=== PATIENT | male | born 1955 | race Caucasian/White ===

== ENCOUNTER → 2021-08-28 | Outpatient (CLI) | payer MEDICARE ==
--- NOTE | 2021-09-04 09:18 | MR ---
EXAMINATION TYPE: MR Prostate wo/w con DATE OF EXAM: 08/28/2021 COMPARISON: CT abdomen and pelvis June 02, 2016 INDICATION: Elevated PSA. PSA: 6.74 ng/ml on May 21, 2021 Recent Biopsy and Date: None Pathology Report (If Applicable): n/a TECHNIQUE: Examination was performed using a 3T MRI without an endorectal coil. Multiparametric imaging was perf ormed with T2 mutliplanar sequences, axial diffusion weighted imaging and dynamic contrast enhanced i maging, utilizing 7.5 mL intravenous Gadavist gadolinium contrast. FINDINGS: There is no clinically significant cancer identified. PROSTATE VOLUME: 5.5 cm SI x 4.3 cm AP x 6.3 cm LR Vol= 78.01 cc Predicted PSA equals 9.36 PSA DENSITY: 0.09 ng/ml/cc Prostate gland is enlarged in size. Peripheral zone shows some linear areas of diminished signal on A DC mapping without increased signal on diffusion-weighted imaging. Transitional zone is overall heter ogeneous without indistinct or distinct T2 hypointense area. Seminal vesicles symmetric and within no rmal limits. No pelvic adenopathy is seen. Urinary bladder shows mild wall thickening and trabeculati on superiorly. Occasional diverticula in the visualized portion of the sigmoid colon is seen. No free fluid in the p leah. Visualized osseous structures are intact. IMPRESSION: Enlarged prostate consistent with BPH. A focus of clinically significant cancer is not identified. Highest Assessment Category: 2 MRI Stage: T0 N0 M0 based on review of pelvic images. False negative rates for MRI range from 5-20% depending on risk profile. Assessment Categories: 1 ? Very low (clinically significant cancer is highly unlikely to be present) 2 ? Low (clinically significant cancer is unlikely to be present) 3 ? Intermediate (the presence of clinically significant cancer is equivocal) 4 ? High (clinically significant cancer is likely to be present) 5 ? Very high (clinically significant cancer is highly likely to be present)
== END | disposition home or self-care (01) ==
LOC: RADMRIMAIN 17:10
PROVIDERS: ATTEND Family Medicine
DX: N40.0 Benign prostatic hyperplasia without lower urinary tract symptoms (principal); R97.20 Elevated prostate specific antigen [PSA]
CPT/HCPCS: 72197; A9585

== ENCOUNTER 2021-09-10 13:58 | Observation (INO) | payer MEDICARE ==
[2021-09-10 16:29] LABS: Basophils # (A) 0.1 k/uL (0-0.2); Basophils % (A) 1 %; Eosinophils # (A) 0.1 k/uL (0-0.7); Eosinophils % (A) 1 %; HGB 13.6 gm/dL (13.0-17.5); Lymphocytes % (A) 13 %; MCH 31.3 pg (25.0-35.0); MCHC 33.3 g/dL (31.0-37.0); Mean Platelet Volume 8.7; Monocytes # (A) 0.3 k/uL (0-1.0); Monocytes % (A) 4 %; Neutrophils # (A) 6.5 k/uL (1.3-7.7); Neutrophils % (A) 81 %; Platelet Count 251 k/uL (150-450); RBC 4.35 m/uL (4.30-5.90); RDW 12.6 % (11.5-15.5)
[2021-09-10 16:38] LABS: Albumin 3.9 g/dL (3.5-5.0); Calcium 8.7 mg/dL (8.4-10.2); Potassium 4.7 mmol/L (3.5-5.1); Total Bilirubin 0.3 mg/dL (0.2-1.3); Total Protein 6.9 g/dL (6.3-8.2)
[2021-09-10 17:25] LABS: Appearance,Urine Clear (Clear); Bilirubin,Urine Negative (Negative); Blood,Urine Trace (Negative); Color,Urine Yellow; Glucose,Urine (UA) Negative (Negative); Hyaline Casts,Urine 11 /lpf (0-2); Ketones,Urine 2+ (Negative); Leukocyte Esterase,Urine Negative (Negative); Mucus,Urine Many /hpf; Nitrite,Urine Negative (Negative); Protein,Urine 1+ (Negative); RBC,Urine 2 /hpf (0-5); Specific Gravity,Urine 1.022 (1.001-1.035); Urobilinogen,Urine <2.0 mg/dL (<2.0); WBC,Urine 4 /hpf (0-5)
[2021-09-10] MEDS: SODIUM CHLORIDE 0.9% 1,000 ML IV SCH (17:29)
[2021-09-10] MEDS ORDERED: NALOXONE 0.4 MG/ML 1 ML VIAL IV PRN (17:38)
--- NOTE | 2021-09-10 17:42 | ED ---
General Adult HPI - General Chief complaint: Weakness Stated complaint: High Heart Rate, Dehydration Time Seen by Provider: 09/10/21 16:26 Source: family, RN notes reviewed, old records reviewed Mode of arrival: wheelchair Limitations: no limitations - History of Present Illness Initial comments: 66-year-old male who had presented from the psychiatrist's office for evaluation, concern for the patient's living situation and safety at home. Patient is a difficult historian and unable to give the exact details of his living situation. He denies pain complaint. Denies fever. Denies vomiting. - Related Data Home Medications Medication Instructions Recorded Confirmed Ferrous Sulfate [Iron (65 MG 325 mg PO DAILY 05/30/16 05/30/16 Elemental)] Levothyroxine Sodium [Synthroid] 112 mcg PO DAILY 05/30/16 05/30/16 Omeprazole 40 mg PO DAILY 05/30/16 05/30/16 Potassium Chloride ER [K-Dur 20] 40 meq PO Q7D 05/30/16 05/31/16 Simvastatin [Zocor] 40 mg PO HS 05/30/16 05/30/16 Previous Rx's Medication Instructions Recorded Aspirin EC [Ecotrin Low Dose] 81 mg PO DAILY #30 tablet.dr 06/10/16 Escitalopram [Lexapro] 20 mg PO DAILY tab 06/10/16 Levofloxacin [Levaquin] 500 mg PO DAILY #7 tab 06/10/16 Metoprolol Tartrate [Lopressor] 25 mg PO BID tab 06/10/16 Polymyxin B-Trimeth Sulf Ophth 2 drops BOTH EYES Q4HR 6 Days ml 06/10/16 [Polytrim Opthalmic] Rivaroxaban [Xarelto] 15 mg PO BID-W/MEALS tab 06/10/16 amLODIPine [Norvasc] 2.5 mg PO BID tab 06/10/16 levETIRAcetam [Keppra] 750 mg PO Q12HR tab 06/10/16 lisinopriL [Zestril] 20 mg PO DAILY tab 06/10/16 Allergies Allergy/AdvReac Type Severity Reaction Status Date / Time Penicillins Allergy Severe Anaphylaxis Verified 09/10/21 14:18 Review of Systems ROS Statement: Those systems with pertinent positive or pertinent negative responses have been documented in the HPI. ROS Other: All systems not noted in ROS Statement are negative. Past Medical History Past Medical History: CVA/TIA, Hyperlipidemia, Thyroid Disorder Additional Past Medical History / Comment(s): past medication data indicates that the pt may have hyperlipidemia and hypo thyroid. History of Any Multi-Drug Resistant Organisms: None Reported Additional Past Surgical History / Comment(s): brain tumor Past Psychological History: No Psychological Hx Reported Past Alcohol Use History: None Reported Past Drug Use History: None Reported - Past Family History Father Family Medical History: Unable to Obtain Mother Family Medical History: Unable to Obtain General Exam Limitations: no limitations General appearance: alert, in no apparent distress Head exam: Present: atraumatic, normocephalic Eye exam: Present: normal appearance, PERRL ENT exam: Present: mucous membranes dry Neck exam: Present: normal inspection. Absent: tenderness, meningismus Respiratory exam: Present: normal lung sounds bilaterally. Absent: respiratory distress, wheezes Cardiovascular Exam: Present: regular rate, normal rhythm GI/Abdominal exam: Present: soft. Absent: distended, tenderness Extremities exam: Present: normal inspection, normal capillary refill Neurological exam: Present: alert. Absent: motor sensory deficit Skin exam: Present: warm, dry, intact. Absent: cyanosis, diaphoretic Course Vital Signs 09/10/21 09/10/21 14:13 17:02 Temperature 98.1 F Pulse Rate 98 83 Respiratory 18 18 Rate Blood Pressure 117/80 113/85 O2 Sat by Pulse 99 94 L Oximetry EKG Findings - EKG Comments: EKG Findings:: EKG: Sinus rhythm with occasional PVC, rate of 87, IN interval 172, QRS duration 90, QTC 4:[address] segment elevation. Medical Decision Making - Medical Decision Making 66-year-old male sent in by the psychiatrist. The psychiatrist had requested that the patient be admitted over concerns of his living situation and his ability to reside in his own, ability to complete the tasks of daily living. I did discuss case with Dr. Wilhelm who will admit the patient with both psychiatry and social work on consult. Laboratory studies are obtained in the emergency department and are unremarkable. - Lab Data Result diagrams: 09/10/21 16:12 09/10/21 16:12 Lab Results 09/10/21 09/10/21 09/10/21 Range/Units 16:12 16:12 17:06 WBC 8.0 (3.8-10.6) k/uL RBC 4.35 (4.30-5.90) m/uL Hgb 13.6 (13.0-17.5) gm/dL Hct 41.0 (39.0-53.0) % MCV 94.0 (80.0-100.0) fL MCH 31.3 (25.0-35.0) pg MCHC 33.3 (31.0-37.0) g/dL RDW 12.6 (11.5-15.5) % Plt Count 251 (150-450) k/uL MPV 8.7 Neutrophils % 81 % Lymphocytes % 13 % Monocytes % 4 % Eosinophils % 1 % Basophils % 1 % Neutrophils # 6.5 (1.3-7.7) k/uL Lymphocytes # 1.0 (1.0-4.8) k/uL Monocytes # 0.3 (0-1.0) k/uL Eosinophils # 0.1 (0-0.7) k/uL Basophils # 0.1 (0-0.2) k/uL Sodium 138 (137-145) mmol/L Potassium 4.7 (3.5-5.1) mmol/L Chloride 103 (98-107) mmol/L Carbon Dioxide 28 (22-30) mmol/L Anion Gap 7 mmol/L BUN 15 (9-20) mg/dL Creatinine 1.04 (0.66-1.25) mg/dL Est GFR (CKD-EPI)AfAm 88 (>60 ml/min/1.73 sqM) Est GFR (CKD-EPI)NonAf 76 (>60 ml/min/1.73 sqM) Glucose 86 (74-99) mg/dL Calcium 8.7 (8.4-10.2) mg/dL Magnesium 2.0 (1.6-2.3) mg/dL Total Bilirubin 0.3 (0.2-1.3) mg/dL AST 16 L (17-59) U/L ALT 14 (4-49) U/L Alkaline Phosphatase 110 (38-126) U/L Total Protein 6.9 (6.3-8.2) g/dL Albumin 3.9 (3.5-5.0) g/dL Urine Color Yellow Urine Appearance Clear (Clear) Urine pH 6.0 (5.0-8.0) Ur Specific [place] 1.022 (1.001-1.035) Urine Protein 1+ H (Negative) Urine Glucose (UA) Negative (Negative) Urine Ketones 2+ H (Negative) Urine Blood Trace H (Negative) Urine Nitrite Negative (Negative) Urine Bilirubin Negative (Negative) Urine Urobilinogen <2.0 (<2.0) mg/dL Ur Leukocyte Esterase Negative (Negative) Urine RBC 2 (0-5) /hpf Urine WBC 4 (0-5) /hpf Hyaline Casts 11 H (0-2) /lpf Urine Mucus Many H (None) /hpf Disposition Clinical Impression: Requires assistance with activities of daily living (ADL), Dehydration Disposition: ADMITTED IP TO THIS [facility] Condition: Stable Is patient prescribed a controlled substance at d/c from ED?: No Referrals: Ladonna Wilhelm DO [Primary Care Provider] - 1-2 days Time of Disposition: 17:42
[2021-09-11] MEDS: SODIUM CHLORIDE 0.9% 1,000 ML IV SCH ×2 (05:22→21:05)
[2021-09-11] MEDS: LOSARTAN 50 MG TAB PO SCH (09:05)
[2021-09-11] MEDS: LEVOTHYROXINE 88 MCG TAB PO SCH (09:05)
[2021-09-11] MEDS: PANTOPRAZOLE 40 MG TABLET PO SCH (09:06)
[2021-09-11] MEDS: OXcarbazepine 300 MG TAB PO SCH ×2 (09:06→21:04)
--- NOTE | 2021-09-11 13:29 | P.HPIM ---
History of Present Illness H&P Date: 09/11/21 Nikhil Zhou is a 66 yo M with PMH of developmental delay, CVA, brain tumor, T2DM, HTN, hypothyroidism. He was brought in to the ED by family yesterday after being recommended by his psychiatrist to go to the hospital due to physical weakness. Per his guardian, pt typically lives with a brother but has started to neglect self care and having falls at home. Pt today denies complains and states he feels fine. On presentation vitals stable, labs unremarkable, EKG NSR. Review of Systems ROS unobtainable: due to mental status Past Medical History Past Medical History: CVA/TIA, Hyperlipidemia, Thyroid Disorder Additional Past Medical History / Comment(s): past medication data indicates that the pt may have hyperlipidemia and hypo thyroid. History of Any Multi-Drug Resistant Organisms: None Reported Additional Past Surgical History / Comment(s): brain tumor Past Anesthesia/Blood Transfusion Reactions: No Reported Reaction Past Psychological History: No Psychological Hx Reported Additional Psychological History / Comment(s): Single. Does not work outside of the home. No animal exposures. No tobacco or alcohol use Smoking Status: Never smoker Past Alcohol Use History: None Reported Past Drug Use History: None Reported - Past Family History Father Family Medical History: Unable to Obtain Mother Family Medical History: Unable to Obtain Medications and Allergies Home Medications Medication Instructions Recorded Confirmed Type Omeprazole 40 mg PO DAILY 05/30/16 09/10/21 History Simvastatin [Zocor] 40 mg PO HS 05/30/16 09/10/21 History Aspirin EC [Ecotrin Low Dose] 81 mg PO HS 09/10/21 09/10/21 History Latanoprost/Pf [Latanoprost 0.005% 1 drop BOTH EYES HS 09/10/21 09/10/21 History Eye Drop] Levothyroxine Sodium 88 mcg PO DAILY 09/10/21 09/10/21 History Losartan Potassium 100 mg PO DAILY 09/10/21 09/10/21 History Mirtazapine 15 mg PO HS 09/10/21 09/10/21 History OXcarbazepine [Trileptal] 300 mg PO BID 09/10/21 09/10/21 History Terazosin HCl 5 mg PO HS 09/10/21 09/10/21 History metFORMIN HCL 1,000 mg PO HS 09/10/21 09/10/21 History Allergies Allergy/AdvReac Type Severity Reaction Status Date / Time Penicillins Allergy Severe Anaphylaxis Verified 09/10/21 14:18 Physical Exam Vitals: Vital Signs Temp Pulse Pulse Resp BP BP Pulse Ox 09/11/21 07:00 97.9 F 73 17 154/85 95 09/11/21 02:00 98.4 F 61 17 153/85 96 09/10/21 17:02 83 18 113/85 94 L 09/10/21 14:13 98.1 F 98 18 117/80 99 Intake and Output 09/10/21 09/11/21 09/11/21 22:59 06:59 14:59 Output Total 200 Balance -200 Output: Urine 200 Other: # Voids 1 Weight 77.111 kg General: elderly male resting in no acute distress HEENT: normocephalic, atraumatic Neck: supple, no JVD or thyromegaly CV: RRR, no murmur Lungs: normal effort, clear throughout Abd: soft, nontender, non distended Neuro: alert. Oriented to self Results CBC & Chem 7: 09/10/21 16:12 09/10/21 16:12 Labs: Abnormal Lab Results - Last 24 Hours (Table) 09/10/21 09/10/21 Range/Units 16:12 17:06 AST 16 L (17-59) U/L Urine Protein 1+ H (Negative) Urine Ketones 2+ H (Negative) Urine Blood Trace H (Negative) Hyaline Casts 11 H (0-2) /lpf Urine Mucus Many H (None) /hpf Thrombosis Risk Factor Assmnt - Choose All That Apply Any of the Below Risk Factors Present?: Yes Other Risk Factors: Yes Each Risk Factor Represents 2 Points: Age 61-74 years Other congenital or acquired thrombophilia - If yes, enter type in comment: No Thrombosis Risk Factor Assessment Total Risk Factor Score: 2 Thrombosis Risk Factor Assessment Level: Low Risk Assessment and Plan Plan: 1. Weakness, impairment in movement and ADLs. Admit to Obs. PT, OT, social work consult. Expect pt will need placement at ECF 2. HTN. Continue home cozaar 3. Hx CVA. Continue lipitor, ASA 4. Dementia. Continue donepazil 5. Developmental delay. Pt LENO Patrick contacted and aware of plan
--- NOTE | 2021-09-11 17:40 | P.CN ---
Psychiatric Consult - . Consult date: 09/11/21 Consult:: IDENTIFYING DATA: This patient is a 66 year old male with history of developmental delay and multiple medical comorbidities, who was admitted due to concerns over his living situation and dehydration. REASON FOR REFERRAL: Psychiatry was consulted for "Assessment ADLs". HISTORY OF PRESENT ILLNESS: Per chart, the patient presented to the hospital "from the psychiatrist's office for evaluation, concern for the patient's living situation and safety at home. Patient is a difficult historian and unable to give the exact details of his living situation." Initial workup in the ER showed unremarkable CBC and CMP. UA was positive for ketones, protein, hyaline casts indicating poor nutrition and dehydration. On my assessment today, patient was found sitting up in his chair with IV for fluids. He is disheveled with unkempt ibrahim and long nails with visible dirt. He is alert, oriented to person, place, time (oriented to year, states month is August and was corrected that month is September), and situation. He is calm and cooperative on assessment. He states he came to the hospital because his "chiropractor told his ___(?) he had to come here". His speech is mildly slurred and difficult to understand at times. He has limited insight into his situation and states "I guess I was in bad shape", but does not appear to fully appreciate the severity of his condition. When asked about falls, he appears to minimize this but eventually admits he has fallen at home. He reports living with his brother Adam who works during the day so he is mostly alone during the days. He reports eating one meal per day that his brother cooks for him, or his brother treats him to [facility] or [employer] (for his birthday). He reports feeling safe at home and does not endorse any mistreatment. He states he is not much of a big eater, stays up late watching TV (like to watch "[place] in Space" at 2am) and wakes up late (between noon - 3pm). Today, he reports he ate some of his breakfast, some of his lunch, and currently does not feel hungry. He reports medication compliance and reports his brother helps put his medications in a medication organizer. His guardian is his uncle who lives next door. He denies depressed mood but objectively affect appears dontae n. He reports low energy, low motivation and interest, (except likes to do the "word scan" and "try to read the Bible"). At this time patient denies any suicidal or homical ideations, intent or plan. Patient denies any auditory, visual hallucinations and denies any paranoia or delusions. Patients denies drug or alcohol abuse. PAST PSYCHIATRIC HISTORY: Patient has a a history of developmental delay; denies any other mental health diagnoses. Patient reports seeing a psychiatrist but cannot recall the name. Patient admits to taking psychiatric medications but cannot name them. Per chart, he is currently prescribed Remeron 15 mg QHS and Trileptal 300 mg BID. Patient denies any previous psychiatric hospitalizations. Patient denies any history of suicide attempts in the past. PAST MEDICAL HISTORY: Past Medical History: CVA/TIA, Hyperlipidemia, Thyroid Disorder Additional Past Medical History / Comment(s): past medication data indicates t hat the pt may have hyperlipidemia and hypo thyroid. History of Any Multi-Drug Resistant Organisms: None Reported Additional Past Surgical History / Comment(s): brain tumor Past Anesthesia/Blood Transfusion Reactions: No Reported Reaction Past Psychological History: No Psychological Hx Reported Additional Psychological History / Comment(s): Single. Does not work outside of the home. No animal exposures. No tobacco or alcohol use Smoking Status: Never smoker Past Alcohol Use History: None Reported Past Drug Use History: None Reported ALLERGIES: as per EMR. CHEMICAL DEPENDENCY HISTORY: Patient denies alcohol or drug abuse. FAMILY PSYCHIATRIC/SUBSTANCE USE HISTORY: Patient denies/is not sure of any family history. SOCIAL HISTORY: Patient lives with his brother Adam. His guardian is his uncle who lives next door. Parents are . He has one brother (Adam) and one sister (lives in [place]). Never , no children. MENTAL STATUS EXAM: General Appearance: Patient appears to be stated age, disheveled with poor hygiene (ibrahim unkempt, nails are long and dirty). He is wearing hospital gown with fair eye contact. Orientation: He is alert, oriented to person, place, year/day and situation. Behavior: Patient is calmly sitting up in his chair without any agitated behavior. He is cooperative. Speech: Patient's speech is fluent and nonpressured. Mood/Affect: Patient reports their mood is "ok", affect appears down/depressed. Suicidality/Homicidality: Patient denies having any suicidal or homicidal ideation intent or plan. Perceptions: Patient denies any visual hallucinations and denies any auditory hallucinations. Though content/process: There is no evidence of any delusional thought content and thought process is linear and goal-directed. Memory and concentration: Recent memory appears intact. Remote memory is mildly impaired. Grossly intact for the purposes of this session. Judgment and insight: Fair to poor IMPRESSIONS: Unspecified depressive disorder Intellectual disability, severity unspecified PLAN: -At this time patient DOES NOT meet criteria for inpatient psychiatric admission. -Would recommend the following medication changes/additions: - Increase Remeron to 30 mg QHS for depression/appetite. -Labs reviewed. CBC and CMP unremarkable. UA positive for ketones, poor nutrition, dehydration. Ordered TSH as routine to assess thyroid function. -Fall precautions. Continue to assess safety and initiate sitter if safety concerns arise. -Agree with PT/OT assessments and plan to pursue (short term) ECF placement for weakness/falls/poor nutritional intake. If patient should return home in the future, recommend exploring in-home health aid to assist with ADLs, as well as in-home PT/OT. -Encourage appropriate sleep hygiene. -Will continue to follow along. -Please contact with any questions. 09/11/21 16:55
[2021-09-11] MEDS ORDERED: MIRTAZAPINE 15 MG TAB PO SCH (21:00)
[2021-09-11] MEDS: ASPIRIN 81 MG PO SCH (21:02)
[2021-09-11] MEDS: ATORVASTATIN 20 MG TAB PO SCH (21:02)
[2021-09-11] MEDS: MIRTAZAPINE 15 MG TAB PO SCH (21:03)
[2021-09-11] MEDS: metFORMIN 500 MG TAB PO SCH (21:03)
[2021-09-11] MEDS: DOXAZOSIN 4 MG TAB PO SCH (21:03)
[2021-09-11] MEDS: LATANOPROST 0.005% OPHTH DROPS 2.5 ML BTL BOTH EYES SCH (21:05)
[2021-09-12] MEDS: LEVOTHYROXINE 88 MCG TAB PO SCH (05:35)
[2021-09-12] MEDS: INSULIN ASPART (NovoLOG) 100 UNIT/ML VIAL SQ SCH ×4 (08:38→21:20)
[2021-09-12] MEDS: PANTOPRAZOLE 40 MG TABLET PO SCH (09:35)
[2021-09-12] MEDS: LOSARTAN 50 MG TAB PO SCH (09:35)
[2021-09-12] MEDS: OXcarbazepine 300 MG TAB PO SCH ×2 (09:35→21:19)
--- NOTE | 2021-09-12 09:42 | P.CON ---
Consult Note - . Assessment/Plan:: This consultation was being performed per the request of Dr. Wilhelm regarding elongated neglected mycotic Adolfo involved nails of both feet This patient is a 66-year-old male with a past medical history of developmental delay, CVA, brain tumor, type 2 diabetes mellitus, hypertension, and hypothyroidism brought to the [facility] by 09/10/2021 her being recommended by his to go to the hospital due to physical weakness. Per his guardian the patient typically lives there but started to collect self-care and having falls at home. Shouldn't denied complaints today to the feels fine. On presentation the vital signs were stable labs were unremarkable well as EKG Review of systems was unobtainable due to mental status Medical history is significant for CVA/TIA or lipidemia, thyroid disorder No past medical history as if her brain tumor Psychological history: No [place] status: None reported Past alcohol use history: None Reported psychological history: None reported Past drug use history: None reported Past family history: Unable to obtain Podiatric physical examination revealed very elongated neglected mycoticaly involved nails of both feet. The patient's skin with regard to pitcher texture within normal limits for a 66-year-old male had palpable pedal pulses rated at +2 over 4 with regard to the dorsalis pedis and the posterior tibial artery at capillary refill is less than 3 seconds to all digits. Bbinski and clonus signs were negative bilaterally Motion of the ankle subtalar midtarsal and metatarsophalangeal joints were free and unrestricted Stated above the patient's nails were quite neglected elongated thick deformed and dystrophic changes consistent with onychomycosis were seen to be present one through 5 bilaterally Assessment and plan 1. Weakness, impairment with movement every day living activities the patient was admitted for observation PT OT and social work consult and social work consult 2. Attention any with home Cozaar 3. History of CVA , continue with Lipitor and aspirin 4. Dementia continue with Donepazil 5. Developmental delay 6. Onychomycosis 1 -5 of both feet. This date I reduce the patient's nails 1 through 5 of both feet burring was performed and a septic was applied. Thank you for considering me in the care of your patients
[2021-09-12 11:30] LABS: Glucose,Whole Blood 86 mg/dL (70-110)
[2021-09-12 16:49] LABS: Glucose,Whole Blood 78 mg/dL (70-110)
--- NOTE | 2021-09-12 17:15 | PN ---
PROGRESS NOTE DATE OF SERVICE: 09/12/2021 This 66-year-old gentleman admitted with weakness and dehydration is being closely monitored. ECF rehab is being planned at this time at this time. Patient continues to be confused. PHYSICAL EXAMINATION: Pulse is 73, blood pressure 153/80, respiration 16. HEENT: Conjunctivae normal. NECK: No jugular venous distention. CARDIOVASCULAR: S1, S2 muffled. RESPIRATION: Breath sounds diminished at the bases. A few scattered rhonchi. ABDOMEN: Soft. NERVOUS SYSTEM: No focal deficit. LABS: Reviewed. ASSESSMENT: 1. Dehydration and diminished oral intake. 2. Hypertension. 3. History of cerebrovascular accident. 4. Dementia. 5. Developmental delay. RECOMMENDATIONS AND DISCUSSION: I recommend to continue current medications, continue with the monitoring, symptomatic treatment. Otherwise at this time I recommend closely following. Repeat labs. Increased hydration. Guarded prognosis. Further recommendations to follow. See orders for further details. MMODL / IJN: [id number] /
[2021-09-12] MEDS: SODIUM CHLORIDE 0.9% 1,000 ML IV SCH (20:54)
[2021-09-12] MEDS: ASPIRIN 81 MG PO SCH (21:13)
[2021-09-12] MEDS: ACETAMINOPHEN TAB 325 MG TAB PO PRN (21:13)
[2021-09-12] MEDS: metFORMIN 500 MG TAB PO SCH (21:13)
[2021-09-12] MEDS: MIRTAZAPINE 15 MG TAB PO SCH (21:13)
[2021-09-12] MEDS: ATORVASTATIN 20 MG TAB PO SCH (21:13)
[2021-09-12 21:16] LABS: Glucose,Whole Blood 93 mg/dL (70-110)
[2021-09-12] MEDS: DOXAZOSIN 4 MG TAB PO SCH (21:18)
[2021-09-12] MEDS: LATANOPROST 0.005% OPHTH DROPS 2.5 ML BTL BOTH EYES SCH (21:21)
[2021-09-13 02:35] LABS: Glucose,Whole Blood 80 mg/dL (70-110)
[2021-09-13] MEDS: SODIUM CHLORIDE 0.9% 1,000 ML IV SCH ×2 (03:00→20:54)
[2021-09-13] MEDS: LEVOTHYROXINE 88 MCG TAB PO SCH (06:02)
[2021-09-13 06:54] LABS: Glucose,Whole Blood 87 mg/dL (70-110)
[2021-09-13] MEDS: INSULIN ASPART (NovoLOG) 100 UNIT/ML VIAL SQ SCH ×4 (07:36→21:00)
[2021-09-13] MEDS: LOSARTAN 50 MG TAB PO SCH (07:36)
[2021-09-13] MEDS: PANTOPRAZOLE 40 MG TABLET PO SCH (07:36)
[2021-09-13] MEDS: OXcarbazepine 300 MG TAB PO SCH ×2 (07:36→20:54)
[2021-09-13 11:32] LABS: Glucose,Whole Blood 73 mg/dL (70-110)
[2021-09-13 11:59] LABS: Basophils # (A) 0.11 X 10*3/uL (0.00-0.10); Basophils % (A) 1.3 %; Eosinophils # (A) 0.43 X 10*3/uL (0.04-0.35); HCT 39.4 % (39.6-50.0); HGB 12.2 g/dL (13.0-17.0); Immature Grans, Automated 0.5 %; Lymphocytes # (A) 3.18 X 10*3/uL (0.90-5.00); Lymphocytes % (A) 36.8 %; MCH 29.4 pg (27.0-32.0); MCV 94.9 fL (80.0-97.0); Mean Platelet Volume 12.4 fL (9.5-12.2); Monocytes % (A) 5.8 %; NRBC Per 100 WBC 0 /100 WBCS (0.0-0.0); Neutrophils # (A) 4.37 X 10*3/uL (1.80-7.70); Neutrophils % (A) 50.6 %; Platelet Count 265 X 10*3/uL (140-440); RBC 4.15 X 10*6/uL (4.40-5.60); RDW 12.9 % (11.5-14.5); WBC 8.63 X 10*3/uL (4.50-10.00)
[2021-09-13 12:06] LABS: African American GFR (CKD) 104.2 (60.0-200.0); Anion Gap 11.3 mmol/L (10.00-18.00); BUN/Creat Ratio 7.33 Ratio (12.00-20.00); Blood Urea Nitrogen 6.6 mg/dL (9.0-27.0); Calcium 8.3 mg/dL (8.7-10.3); Carbon Dioxide 23.7 mmol/L (20.0-27.5); Non-African American GFR(CKD) 89.9 (60.0-200.0); Potassium 3.9 mmol/L (3.5-5.5)
--- NOTE | 2021-09-13 14:58 | PN ---
PROGRESS NOTE DATE OF SERVICE: 09/13/2021 This 66-year-old gentleman admitted with weakness and dehydration is confused. The patient was rather combative a couple of days ago; calmer today. No chest pain. No palpitations. PHYSICAL EXAMINATION: Pulse 81, blood pressure ntd, respirations 17. HEENT: Conjunctivae normal. NECK: No jugular venous distention. CARDIOVASCULAR: S1, S2 muffled. RESPIRATION: Breath sounds diminished at the bases. ABDOMEN: Soft. NERVOUS SYSTEM: Diffusely weak. LABS: Hemoglobin 12.2. Other labs are reviewed. ASSESSMENT: 1. Acute dehydration, diminished oral intake. 2. Hypertension. 3. History of cerebrovascular accident. 4. Dementia. 5. Developmental delay. RECOMMENDATIONS AND DISCUSSION: I recommend to continue current medications, continue with the monitoring, symptomatic treatment. PT/OT evaluation. Possible ECF rehab on Tuesday. Further recommendations to follow. Dr. Wilhelm will follow on Tuesday. MMBERNAL / IRAISN: [id number] / MTDD
[2021-09-13 16:45] LABS: Glucose,Whole Blood 74 mg/dL (70-110)
[2021-09-13 19:55] LABS: Glucose,Whole Blood 103 mg/dL (70-110)
[2021-09-13] MEDS: DOXAZOSIN 4 MG TAB PO SCH (20:54)
[2021-09-13] MEDS: ATORVASTATIN 20 MG TAB PO SCH (20:54)
[2021-09-13] MEDS: MIRTAZAPINE 15 MG TAB PO SCH (20:55)
[2021-09-13] MEDS: ASPIRIN 81 MG PO SCH (20:55)
[2021-09-13] MEDS: ACETAMINOPHEN TAB 325 MG TAB PO PRN (20:55)
[2021-09-13] MEDS: LATANOPROST 0.005% OPHTH DROPS 2.5 ML BTL BOTH EYES SCH (21:00)
[2021-09-14] MEDS: LEVOTHYROXINE 88 MCG TAB PO SCH (05:47)
[2021-09-14 06:59] LABS: Glucose,Whole Blood 70 mg/dL (70-110)
[2021-09-14] MEDS: INSULIN ASPART (NovoLOG) 100 UNIT/ML VIAL SQ SCH ×4 (07:19→21:48)
[2021-09-14] MEDS: LOSARTAN 50 MG TAB PO SCH (07:39)
[2021-09-14] MEDS: PANTOPRAZOLE 40 MG TABLET PO SCH (07:39)
[2021-09-14] MEDS: OXcarbazepine 300 MG TAB PO SCH ×2 (07:39→21:49)
[2021-09-14 11:27] LABS: Glucose,Whole Blood 129 mg/dL (70-110)
--- NOTE | 2021-09-14 13:10 | P.PN ---
Subjective Progress Note Date: 09/14/21 This is a 66 year old male who was recently admitted with weakness and dehydration and with confusion and is being closely monitored. Patient follows with Dr. Wilhelm in the outpatient setting. Patient has been becoming more weak at home and ECF is being planned. Patient is less confused and more awake. Patient is afebrile and no reports of chest pain or shortness of breath. Recommend close monitoring of blood sugars and use sliding scale as needed. achs accuchecks. Encourage oral intake. All medications have been reviewed Active Medications Acetaminophen (Acetaminophen Tab 325 Mg Tab) 650 mg PO Q6HR PRN PRN Reason: Mild Pain or Fever > 100.5 Last Admin: 09/13/21 20:55 Dose: 650 mg Aspirin (Aspirin 81 Mg) 81 mg PO [facility] Last Admin: 09/13/21 20:55 Dose: 81 mg Atorvastatin Calcium (Atorvastatin 20 Mg Tab) 20 mg PO [facility] Last Admin: 09/13/21 20:54 Dose: 20 mg Doxazosin Mesylate (Doxazosin 4 Mg Tab) 4 mg PO [facility] Last Admin: 09/13/21 20:54 Dose: 4 mg Insulin Aspart (Insulin Aspart (Novolog) 100 Unit/Ml Vial) 0 unit SQ [facility]; Protocol Last Admin: 09/14/21 11:30 Dose: Not Given Latanoprost (Latanoprost 0.005% Ophth Drops 2.5 Ml Btl) 1 drops BOTH EYES [facility] Last Admin: 09/13/21 21:00 Dose: 1 drops Levothyroxine Sodium (Levothyroxine 88 Mcg Tab) 88 mcg PO DAILY@0630 [facility] Last Admin: 09/14/21 05:47 Dose: 88 mcg Losartan Potassium (Losartan 50 Mg Tab) 100 mg PO DAILY [facility] Last Admin: 09/14/21 07:39 Dose: 100 mg Mirtazapine (Mirtazapine 15 Mg Tab) 30 mg PO [facility] Last Admin: 09/13/21 20:55 Dose: 30 mg Naloxone HCl (Naloxone 0.4 Mg/Ml 1 Ml Vial) 0.2 mg IV Q2M PRN PRN Reason: Opioid Reversal Oxcarbazepine (Oxcarbazepine 300 Mg Tab) 300 mg PO BID [facility] Last Admin: 09/14/21 07:39 Dose: 300 mg Pantoprazole Sodium (Pantoprazole 40 Mg Tablet) 40 mg PO [facility] Last Admin: 09/14/21 07:39 Dose: 40 mg PHYSICAL EXAMINATION: GENERAL: The patient is alert and oriented x1-2, Well developed, well nourished. elderly HEENT: Pupils are round and equally reacting to light. EOMI. no scleral icterus. No conjunctival pallor. Normocephalic, atraumatic. No pharyngeal erythema. No thyromegaly. CARDIOVASCULAR: S1 and S2 muffled PULMONARY: diminished breath sounds bilaterally with no wheezing or rhonchi noted. ABDOMEN: soft. non tender on exam. Obese. non-distended, normal bowel sounds. No palpable organomegaly. MUSCULOSKELETAL: No joint swelling or deformity. EXTREMITIES: No cyanosis, clubbing, or pedal edema. NEUROLOGICAL: Gross neurological examination did not reveal any focal deficits. diffuse weakness SKIN: No rashes. Assessment: Acute dehydration, diminished oral intake Hypertension HIstory of CVA Dementia Developmental delay multiple complex medical issues GI prophylaxis DVT prophylaxis Full code Plan: Recommend to continue with current medications and management . Recommend accuchecks and achs. Will discuss with case management about discharge planning to ECF. Encourage oral intake. PT/OT to evaluate for ECF. Due to multiple complex medical issues, prognosis is guarded. Possible discharge in [address] Francesco Wilhelm will follow started tomorrow am. The impression and plan of care has been dictated as a scribe by Kerrie Pina, nurse practitioner as directed. MD Brandi I have performed a history and examination and MDM of this patient, discussed the same with the dictator, and has been documented as a scribe. Based on total visit time, I have performed more than 50% of the visit. Any additional findings or plans will be noted. Objective - Vital Signs Vital signs: Vital Signs Temp 97.9 F 09/14/21 07:00 Pulse 66 09/14/21 07:00 Resp 16 09/14/21 02:00 BP 142/95 09/14/21 07:00 Pulse Ox 96 09/14/21 07:00 FiO2 Intake & Output 09/13/21 09/14/21 09/14/21 18:59 06:59 18:59 Other: # Voids 4 2 3 # Bowel Movements 0 1 - Labs CBC & Chem 7: 09/13/21 06:44 09/13/21 06:44 Labs: Abnormal Lab Results - Last 24 Hours (Table) 09/13/21 09/13/21 Range/Units 06:44 06:44 RBC 4.15 L (4.40-5.60) X 10*6/uL Hgb 12.2 L (13.0-17.0) g/dL Hct 39.4 L (39.6-50.0) % MCHC 31.0 L (32.0-37.0) g/dL MPV 12.4 H (9.5-12.2) fL Eosinophils # 0.43 H (0.04-0.35) X 10*3/uL Basophils # 0.11 H (0.00-0.10) X 10*3/uL BUN 6.6 L (9.0-27.0) mg/dL BUN/Creatinine Ratio 7.33 L (12.00-20.00) Ratio Glucose 65 L (70-110) mg/dL Calcium 8.3 L (8.7-10.3) mg/dL
--- NOTE | 2021-09-14 13:31 | P.PN ---
Progress Note - Text Progress Note Date: 09/14/21 Interval history: Patient was seen in follow-up of psychiatric consult for "assessment ADLs". Patient was found sitting up in his chair eating his lunch. His mood and affect are improved. He is pleasant on assessment and denies any complaints. He reports good mood, satisfied appetite, improved sleep. At this time patient denies any suicidal or homicidal ideations intent or plan. Denies any auditory or visual hallucinations. Patient denies any side effects from the medications and has been compliant with meds. Mental status exam: General Appearance: Patient appears to be stated age, with marginal hygiene. He is wearing hospital gown with improved eye contact. Orientation: He is alert, oriented to person, place, time and situation. Behavior: Patient is calmly sitting up in his chair eating his lunch without any agitated behavior. He is cooperative. Speech: Patient's speech is fluent and nonpressured. Mood/Affect: Patient reports their mood is "pretty good", affect appears euthymic/improved. Suicidality/Homicidality: Patient denies having any suicidal or homicidal ideation intent or plan. Perceptions: Patient denies any visual hallucinations and denies any auditory hallucinations. Though content/process: There is no evidence of any delusional thought content and thought process is linear and goal-directed. Memory and concentration: Recent memory appears intact. Remote memory is mildly impaired. Grossly intact for the purposes of this session. Judgment and insight: Fair IMPRESSIONS: Unspecified depressive disorder Intellectual disability, severity unspecified PLAN: -At this time patient DOES NOT meet criteria for inpatient psychiatric admission. -Would recommend the following medication changes/additions: - Continue [id number] mg QHS for depression/appetite. -Labs reviewed: TSH is in normal limits. -Fall precautions. Continue to assess safety and initiate sitter if safety concerns arise. -Agree with PT/OT assessments and plan to pursue (short term) ECF placement for weakness/falls/poor nutritional intake. If patient should return home in the future, recommend exploring in-home health aid to assist with ADLs, as well as in-home PT/OT. -Encourage appropriate sleep hygiene. -Psychiatry will sign off at this time. -Please contact with any questions.
[2021-09-14 16:59] LABS: Glucose,Whole Blood 89 mg/dL (70-110)
[2021-09-14 20:53] LABS: Glucose,Whole Blood 99 mg/dL (70-110)
[2021-09-14] MEDS: ASPIRIN 81 MG PO SCH (21:48)
[2021-09-14] MEDS: ATORVASTATIN 20 MG TAB PO SCH (21:48)
[2021-09-14] MEDS: MIRTAZAPINE 15 MG TAB PO SCH (21:48)
[2021-09-14] MEDS: LATANOPROST 0.005% OPHTH DROPS 2.5 ML BTL BOTH EYES SCH (21:49)
[2021-09-14] MEDS: DOXAZOSIN 4 MG TAB PO SCH (21:49)
[2021-09-15] MEDS: ACETAMINOPHEN TAB 325 MG TAB PO PRN (01:26)
[2021-09-15 05:02] VITALS: RESP 14
[2021-09-15] MEDS: LEVOTHYROXINE 88 MCG TAB PO SCH (06:11)
[2021-09-15 07:00] LABS: Glucose,Whole Blood 71 mg/dL (70-110)
[2021-09-15] MEDS: INSULIN ASPART (NovoLOG) 100 UNIT/ML VIAL SQ SCH (07:38)
[2021-09-15] MEDS: OXcarbazepine 300 MG TAB PO SCH (07:52)
[2021-09-15] MEDS: PANTOPRAZOLE 40 MG TABLET PO SCH (07:52)
[2021-09-15] MEDS: LOSARTAN 50 MG TAB PO SCH (07:52)
--- NOTE | 2021-09-15 08:17 | P.DS ---
Providers Date of admission: 09/10/21 17:39 Expected date of discharge: 09/15/21 Attending physician: Francesco Wilhelm MD Consults: 09/10/21 17:38 Consult Physician Routine Consulting Provider: Chava Yen Consult Reason/Comments: Assessment ADLs Do you want consulting provider notified?: Yes 09/11/21 09:28 Consult Physician Urgent Consulting Provider: Chandler Funk Consult Reason/Comments: Toenail Clip Do you want consulting provider notified?: Yes Primary care physician: [facility] Course: Nikhil Zhou is a 66 yo M with PMH of developmental delay, CVA, brain tumor, T2DM, HTN, hypothyroidism. He was brought in to the ED by family yesterday after being recommended by his psychiatrist to go to the hospital due to physical weakness. Per his guardian, pt typically lives with a brother but has started to neglect self care and having falls at home. Pt today denies complains and states he feels fine. On presentation vitals stable, labs unremarkable, EKG NSR. Pt admitted to observation, seen by Psych and podiatry for onychomycosis. His nails were trimmed. He was not felt to require inpatient psychiatric care and no medications changed. He continued to demonstrate impairment in ADLs during his admission and was recommended ECF by PT and OT. He is discharged in stable condition and recommended to follow up with his PCP upon discharge. Patient Condition at Discharge: Stable Plan - Discharge Summary New Discharge Prescriptions: Continue Simvastatin [Zocor] 40 mg PO HS Omeprazole 40 mg PO DAILY Mirtazapine 15 mg PO HS Latanoprost/Pf [Latanoprost 0.005% Eye Drop] 1 drop BOTH EYES HS Levothyroxine Sodium 88 mcg PO DAILY OXcarbazepine [Trileptal] 300 mg PO BID metFORMIN HCL 1,000 mg PO HS Losartan Potassium 100 mg PO DAILY Aspirin EC [Ecotrin Low Dose] 81 mg PO HS Terazosin HCl 5 mg PO HS Discharge Medication List Omeprazole 40 mg PO DAILY 05/30/16 [History] Simvastatin [Zocor] 40 mg PO HS 05/30/16 [History] Aspirin EC [Ecotrin Low Dose] 81 mg PO HS 09/10/21 [History] Latanoprost/Pf [Latanoprost 0.005% Eye Drop] 1 drop BOTH EYES HS 09/10/21 [History] Levothyroxine Sodium 88 mcg PO DAILY 09/10/21 [History] Losartan Potassium 100 mg PO DAILY 09/10/21 [History] Mirtazapine 15 mg PO HS 09/10/21 [History] OXcarbazepine [Trileptal] 300 mg PO BID 09/10/21 [History] Terazosin HCl 5 mg PO HS 09/10/21 [History] metFORMIN HCL 1,000 mg PO HS 09/10/21 [History] Follow up Appointment(s)/Referral(s): Ladonna Wilhelm DO [Primary Care Provider] - 1-2 days Discharge Disposition: TRANSFER TO SNF/ECF
[2021-09-15 09:03] VITALS: BP 126/81; PULSE 59; TEMP 97.7
[2021-09-15 11:35] LABS: Glucose,Whole Blood 96 mg/dL (70-110)
== END 2021-09-15 12:10 ==
LOC: EC 13:58 → 6NMEDSUR 17:39 → 4SSUR 21:24
PROVIDERS: ADMIT Family Medicine; ATTEND Family Medicine
DX: E86.0 Dehydration (principal); I10 Essential (primary) hypertension; F03.90 Unspecified dementia, unspecified severity, without behavioral disturbance, psychotic disturbance, mood disturbance, and anxiety; B35.1 Tinea unguium; R62.50 Unspecified lack of expected normal physiological development in childhood; F32.A Depression, unspecified; F79 Unspecified intellectual disabilities; R00.0 Tachycardia, unspecified; E78.5 Hyperlipidemia, unspecified; E03.9 Hypothyroidism, unspecified; E11.9 Type 2 diabetes mellitus without complications; D49.6 Neoplasm of unspecified behavior of brain; E66.9 Obesity, unspecified; Z68.29 Body mass index [BMI] 29.0-29.9, adult; Z86.73 Personal history of transient ischemic attack (TIA), and cerebral infarction without residual deficits; R29.6 Repeated falls; Z79.899 Other long term (current) drug therapy; Z79.890 Hormone replacement therapy; Z79.84 Long term (current) use of oral hypoglycemic drugs; Z79.82 Long term (current) use of aspirin; Z88.0 Allergy status to penicillin; Z71.9 Counseling, unspecified
CPT/HCPCS: 96360; 96361 ×2; 99285; 36415; 93005; 97116; 97162; 97530; 97166; 80053; 80048; 84443; 83735; 85025 ×2; 81001; G0378 ×7

== ENCOUNTER 2023-10-15 14:40 | Observation (INO) | payer MEDICARE ==
[2023-10-15 14:54] LABS: Glucose,Whole Blood 78 mg/dL (70-110)
--- NOTE | 2023-10-15 14:59 | ED ---
General Adult HPI - General Chief complaint: Altered Mental Status Stated complaint: Altered Time Seen by Provider: 10/15/23 14:44 Source: patient, EMS, RN notes reviewed Mode of arrival: EMS Limitations: altered mental status - History of Present Illness Initial comments: Patient is a 68-year-old male presenting to the emergency department with concern for confusion and unable to live on his own. Family found patient living [facility]. Patient was covered with urine and feces. Patient has been altered. Patient does not have any specific complaints. - Related Data Home Medications Medication Instructions Recorded Confirmed Unable To Assess [Unable to Assess] 10/15/23 10/15/23 Allergies Allergy/AdvReac Type Severity Reaction Status Date / Time Penicillins Allergy Severe Anaphylaxis Verified 10/15/23 14:55 Review of Systems ROS Statement: Those systems with pertinent positive or pertinent negative responses have been documented in the HPI. ROS Other: All systems not noted in ROS Statement are negative. Constitutional: Denies: fever Eyes: Denies: eye pain Respiratory: Denies: dyspnea Cardiovascular: Denies: chest pain Endocrine: Denies: fatigue Gastrointestinal: Denies: abdominal pain Neurological: Reports: as per HPI Past Medical History Past Medical History: CVA/TIA, Hyperlipidemia, Thyroid Disorder Additional Past Medical History / Comment(s): past medication data indicates that the pt may have hyperlipidemia and hypo thyroid. History of Any Multi-Drug Resistant Organisms: None Reported Additional Past Surgical History / Comment(s): brain tumor Past Anesthesia/Blood Transfusion Reactions: No Reported Reaction Past Psychological History: No Psychological Hx Reported Smoking Status: Never smoker Past Alcohol Use History: None Reported Past Drug Use History: None Reported - Past Family History Father Family Medical History: Unable to Obtain Mother Family Medical History: Unable to Obtain General Exam Limitations: no limitations General appearance: alert, in no apparent distress, other (Poor personal hygiene) Head exam: Present: atraumatic Eye exam: Present: normal appearance, PERRL, EOMI ENT exam: Present: normal oropharynx Neck exam: Present: normal inspection Respiratory exam: Present: normal lung sounds bilaterally Cardiovascular Exam: Present: regular rate, normal rhythm GI/Abdominal exam: Present: soft. Absent: tenderness Extremities exam: Present: normal inspection Neurological exam: Present: alert, CN II-XII intact. Absent: motor sensory deficit Expanded Neurological exam: Present: protecting the airway Patient oriented to: Present: person, place. Absent: time Cranial nerves: EOM's Intact: Normal Motor strength exam: RUE: 5, LUE: 5, RLE: 5, LLE: 5 Eye Response: (4) open spontaneously Motor Response: (6) obeys commands Verbal Response: (4) confused conversation Psychiatric exam: Present: flat affect Skin exam: Present: normal color Course Vital Signs 10/15/23 14:45 Temperature 97.8 F Respiratory 18 Rate Blood Pressure 119/99 O2 Sat by Pulse 98 Oximetry EKG Findings - EKG Results: EKG: interpreted by ERMD (Left axis. T wave inversion V1 through V4 and inferior.), sinus rhythm, normal QRS Medical Decision Making - Medical Decision Making MDM back was pt. sent in by a medical professional or institution (HANH Campo, PROOF MACHINE OPERATOR SUPERVISOR, urgent care, hospital, or longterm...) When possible be specific @ -No Did you speak to anyone other than the patient for history (EMS, parent, family, police, friend...)? What history was obtained from this source @ -EMS provides history as patient is a poor historian and has no complaints Did you review nursing and triage notes (agree or disagree)? Why? @ -I reviewed and agree with nursing and triage notes Were old charts reviewed (outside hosp., previous admission, EMS record, old EKG, old radiological studies, urgent care reports/EKG's, longterm records)? Report findings @ -No old charts were reviewed Differential Diagnosis (chest pain, altered mental status, abdominal pain women, abdominal pain men, vaginal bleeding, weakness, fever, dyspnea, syncope, headache, dizziness, GI bleed, back pain, seizure, CVA, palpatations, mental health, musculoskeletal)? @ -Differential Altered Mental Status: Hypoglycemia, DKA, hypercapnia, ETOH, overdose, CO poisoning, trauma, myxedema coma, HTN encephalopathy, infection, encephalitis, psychosis, intercranial hemorrhage, hepatic encephalopathy, meningitis, CVA, this is not meant to be an all-inclusive list EKG interpreted by me (3pts min.). @ -As above X-rays interpreted by me (1pt min.). @ -X-ray shows no acute process. CT interpreted by me (1pt min.). @ -CT scan of the brain shows calcifications. U/S interpreted by me (1pt. min.). @ -None done What testing was considered but not performed or refused? (CT, X-rays, U/S, labs)? Why? @ -None What meds were considered but not given or refused? Why? @ -None Did you discuss the management of the patient with other professionals (professionals i.e. , PA, PROOF MACHINE OPERATOR SUPERVISOR, lab, RT, psych nurse, social science manager, slate splitting supervisor, teacher, facilities officer, immigration case worker)? Give summary @ -Case was discussed with Dr. Araujo who will admit covering hospital call Was smoking cessation discussed for >3mins.? @ -No Was critical care preformed (if so, how long)? @ -No Were there social determinants of health that impacted care today? How? (Homelessness, low income, unemployed, alcoholism, drug addiction, transportat ion, low edu. Level, literacy, decrease access to med. care, longterm, rehab)? @ -No Was there de-escalation of care discussed even if they declined (Discuss DNR or withdrawal of care, Hospice)? DNR status @ -No What co-morbidities impacted this encounter? (DM, HTN, Smoking, COPD, CAD, Cancer, CVA, ARF, Chemo, Hep., AIDS, mental health diagnosis, sleep apnea, morbid obesity)? @ -None Was patient admitted / discharged? Hospital course, mention meds given and route, prescriptions, significant lab abnormalities, going to OR and other pertinent info. @ -Patient presents with confusion and weakness, unable to take care of himself. Workup unremarkable. Patient will be admitted for further evaluation, admission orders written Undiagnosed new problem with uncertain prognosis? @ -No Drug Therapy requiring intensive monitoring for toxicity (Heparin, Nitro, Insulin, Cardizem)? @ -No Were any procedures done? @ -No Diagnosis/symptom? @ -Altered mental status, weakness Acute, or Chronic, or Acute on Chronic? @ -Acute, acute Uncomplicated (without systemic symptoms) or Complicated (systemic symptoms)? @ -Default Side effects of treatment? @ -No Exacerbation, Progression, or Severe Exacerbation? @ -No Poses a threat to life or bodily function? How? (Chest pain, USA, NC, pneumonia, PE, COPD, DKA, ARF, appy, cholecystitis, CVA, Diverticulitis, Homicidal, Suicidal, threat to staff... and all critical care pts) @ -No - Lab Data Result diagrams: 10/15/23 14:54 10/15/23 14:54 Lab Results 10/15/23 10/15/23 10/15/23 Range/Units 14:52 14:54 14:54 WBC 10.0 (3.8-10.6) k/uL RBC 5.00 (4.30-5.90) m/uL Hgb 14.6 (13.0-17.5) gm/dL Hct 44.2 (39.0-53.0) % MCV 88.4 (80.0-100.0) fL MCH 29.2 (25.0-35.0) pg MCHC 33.0 (31.0-37.0) g/dL RDW 13.7 (11.5-15.5) % Plt Count 249 (150-450) k/uL MPV 9.2 Neutrophils % 76 % Lymphocytes % 15 % Monocytes % 4 % Eosinophils % 3 % Basophils % 1 % Neutrophils # 7.6 (1.3-7.7) k/uL Lymphocytes # 1.5 (1.0-4.8) k/uL Monocytes # 0.4 (0-1.0) k/uL Eosinophils # 0.3 (0-0.7) k/uL Basophils # 0.1 (0-0.2) k/uL PT 13.4 H (10.0-12.5) sec INR 1.3 H (<1.2) APTT 26.8 (22.0-30.0) sec Sodium (137-145) mmol/L Potassium (3.5-5.1) mmol/L Chloride (98-107) mmol/L Carbon Dioxide (22-30) mmol/L Anion Gap mmol/L BUN (9-20) mg/dL Creatinine (0.66-1.25) mg/dL Est GFR (CKD-EPI)AfAm (>60 ml/min/1.73 sqM) Est GFR (CKD-EPI)NonAf (>60 ml/min/1.73 sqM) Glucose (74-99) mg/dL POC Glucose (mg/dL) 78 (70-110) mg/dL POC Glu [employer] Architect ID Britton, Donyele Calcium (8.4-10.2) mg/dL Total Bilirubin (0.2-1.3) mg/dL AST (17-59) U/L ALT (4-49) U/L Alkaline Phosphatase (38-126) U/L Troponin I (0.000-0.034) ng/mL Total Protein (6.3-8.2) g/dL Albumin (3.5-5.0) g/dL Serum Alcohol mg/dL 10/15/23 10/15/23 Range/Units 14:54 14:54 WBC (3.8-10.6) k/uL RBC (4.30-5.90) m/uL Hgb (13.0-17.5) gm/dL Hct (39.0-53.0) % MCV (80.0-100.0) fL MCH (25.0-35.0) pg MCHC (31.0-37.0) g/dL RDW (11.5-15.5) % Plt Count (150-450) k/uL MPV Neutrophils % % Lymphocytes % % Monocytes % % Eosinophils % % Basophils % % Neutrophils # (1.3-7.7) k/uL Lymphocytes # (1.0-4.8) k/uL Monocytes # (0-1.0) k/uL Eosinophils # (0-0.7) k/uL Basophils # (0-0.2) k/uL PT (10.0-12.5) sec INR (<1.2) APTT (22.0-30.0) sec Sodium 138 (137-145) mmol/L Potassium 3.2 L (3.5-5.1) mmol/L Chloride 104 (98-107) mmol/L Carbon Dioxide 22 (22-30) mmol/L Anion Gap 12 mmol/L BUN 11 (9-20) mg/dL Creatinine 0.78 (0.66-1.25) mg/dL Est GFR (CKD-EPI)AfAm >90 (>60 ml/min/1.73 sqM) Est GFR (CKD-EPI)NonAf >90 (>60 ml/min/1.73 sqM) Glucose 94 (74-99) mg/dL POC Glucose (mg/dL) (70-110) mg/dL POC Glu [employer] Architect ID Calcium 9.3 (8.4-10.2) mg/dL Total Bilirubin 0.9 (0.2-1.3) mg/dL AST 18 (17-59) U/L ALT 13 (4-49) U/L Alkaline Phosphatase 65 (38-126) U/L Troponin I <0.012 (0.000-0.034) ng/mL Total Protein 6.6 (6.3-8.2) g/dL Albumin 3.7 (3.5-5.0) g/dL Serum Alcohol <10 mg/dL Disposition Clinical Impression: Altered mental status Disposition: ADMITTED IP TO THIS HOSP Is patient prescribed a controlled substance at d/c from ED?: No Referrals: Nicki Shrestha MD [Primary Care Provider] - 1-2 days Time of Disposition: 18:08
[2023-10-15] MEDS: SODIUM CHLORIDE 0.9% 1,000 ML IV ONE (15:23)
[2023-10-15 15:37] LABS: Basophils # (A) 0.1 k/uL (0-0.2); Basophils % (A) 1 %; Eosinophils # (A) 0.3 k/uL (0-0.7); Eosinophils % (A) 3 %; HCT 44.2 % (39.0-53.0); HGB 14.6 gm/dL (13.0-17.5); Lymphocytes # (A) 1.5 k/uL (1.0-4.8); Lymphocytes % (A) 15 %; MCH 29.2 pg (25.0-35.0); MCV 88.4 fL (80.0-100.0); Mean Platelet Volume 9.2; Monocytes # (A) 0.4 k/uL (0-1.0); Monocytes % (A) 4 %; Neutrophils # (A) 7.6 k/uL (1.3-7.7); Neutrophils % (A) 76 %; Platelet Count 249 k/uL (150-450); RDW 13.7 % (11.5-15.5)
[2023-10-15 15:46] LABS: INR 1.3 (<1.2); Partial Thromboplastin Time 26.8 sec (22.0-30.0); Prothrombin Time 13.4 sec (10.0-12.5)
[2023-10-15 16:00] LABS: ALT 13 U/L (4-49); AST 18 U/L (17-59); African American GFR (CKD) >90 (>60 ml/min/1.73 sqM); Albumin 3.7 g/dL (3.5-5.0); Alcohol <10 mg/dL; Alkaline Phosphatase 65 U/L (38-126); Anion Gap 12 mmol/L; Blood Urea Nitrogen 11 mg/dL (9-20); Calcium 9.3 mg/dL (8.4-10.2); Carbon Dioxide 22 mmol/L (22-30); Chloride 104 mmol/L (98-107); Glucose 94 mg/dL (74-99); Non-African American GFR(CKD) >90 (>60 ml/min/1.73 sqM); Potassium 3.2 mmol/L (3.5-5.1); Sodium 138 mmol/L (137-145); Total Bilirubin 0.9 mg/dL (0.2-1.3); Total Protein 6.6 g/dL (6.3-8.2)
--- NOTE | 2023-10-15 17:05 | CT ---
EXAMINATION TYPE: CT brain wo con DATE OF EXAM: 10/15/2023 COMPARISON: 05/31/2016 HISTORY: 68-year-old male confusion, ams TECHNIQUE: Examination was done in axial plane without intravenous contrast. Coronal and sagittal r econstructions performed. CT DLP: 1243.4 mGycm Automated exposure control for dose reduction was used. FINDINGS: There is chronic osseous deformity of the posterior cranial fossa with scalloping of the calvarium an d extra CSF density here. Calcifications in the left cerebellar hemisphere and surgical clips are unc hanged. [id number] hydrocephalus is unchanged. Patchy white matter hypodensities in both cervical hemis pheres. Prominent thalamic and basal ganglionic calcifications are unchanged. Mild volume loss overly ing the bilateral cerebral convexities. There is no evidence of acute intracranial hemorrhage, acute ischemic changes, mass, mass-effect, or extra-axial fluid collection. There is no effacement of cerebral sulci or basal subarachnoid cister ns. There is no hydrocephalus. There is no midline shift. Pitts-white matter distinction is preserv ed. Opacification left frontal sinus. Mastoid air cells well pneumatized. IMPRESSION: 1. Chronic osseous deformity and postsurgical change in the posterior cranial fossa. 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 Correlate for any known diagnosis. 2. Mild hydrocephalus is unchanged and may be due to central cerebral atrophy. Correlate to exclude a nd component of NPH. 3. Mild to moderate burden of chronic small vessel ischemic disease. Otherwise, no acute intracranial abnormality seen. 4. Severe chronic left frontal sinus disease.
--- NOTE | 2023-10-15 17:25 | XR ---
EXAMINATION TYPE: XR chest 2V DATE OF EXAM: 10/15/2023 COMPARISON: 06/10/2016 HISTORY: 68 year old male confusion, altered mental status, failure to thrive TECHNIQUE: AP and lateral views FINDINGS: Heart normal size. Aorta and pulmonary vasculature within normal limits. Interstitial prominence is u nchanged. No consolidation or pleural effusion. IMPRESSION: Chronic changes. No acute process seen.
[2023-10-15] MEDS ORDERED: NALOXONE 0.4 MG/ML 1 ML VIAL IV PRN (18:09)
[2023-10-15 20:17] LABS: Appearance,Urine Cloudy (Clear); Bacteria,Urine Rare /hpf; Bilirubin,Urine Negative (Negative); Blood,Urine Small (Negative); Color,Urine Light Yellow; Glucose,Urine (UA) Negative (Negative); Hyaline Casts,Urine 14 /lpf (0-2); Ketones,Urine 3+ (Negative); Leukocyte Esterase,Urine Negative (Negative); Mucus,Urine Few /hpf; Nitrite,Urine Negative (Negative); PH, Urine 5.5 (5.0-8.0); Protein,Urine Trace (Negative); RBC,Urine 1 /hpf (0-5); Specific Gravity,Urine 1.013 (1.001-1.035); Squamous Epithelial Cell,Urine <1 /hpf (0-4); Urobilinogen,Urine <2.0 mg/dL (<2.0); WBC,Urine 1 /hpf (0-5)
[2023-10-16 08:26] VITALS: RESP 16
[2023-10-16 09:42] LABS: ALT 13 U/L (10-49); AST 18 U/L (14-35); Albumin 4.1 g/dL (3.8-4.9); Albumin/Globulin Ratio 1.41 Ratio (1.60-3.17); Alkaline Phosphatase 81 U/L (41-126); BUN/Creat Ratio 7.22 Ratio (12.00-20.00); Basophils # (A) 0.06 X 10*3/uL (0.00-0.10); Basophils % (A) 0.5 %; Blood Urea Nitrogen 6.5 mg/dL (9.0-27.0); Calcium 9.1 mg/dL (8.7-10.3); Carbon Dioxide 23.2 mmol/L (21.6-31.8); Chloride 100 mmol/L (96-109); Eosinophils # (A) 0.15 X 10*3/uL (0.04-0.35); Eosinophils % (A) 1.2 %; Globulin 2.9 g/dL (1.6-3.3); Glucose 90 mg/dL (70-110); HCT 44.8 % (39.6-50.0); HGB 14.7 g/dL (13.0-17.0); Lymphocytes % (A) 13.4 %; MCH 28.6 pg (27.0-32.0); MCHC 32.8 g/dL (32.0-37.0); MCV 87.2 FL (80.0-97.0); Mean Platelet Volume 13.4 FL (9.5-12.2); Monocytes # (A) 0.69 X 10*3/uL (0.20-1.00); Monocytes % (A) 5.4 %; NRBC Per 100 WBC 0 X 10*3/uL (0.00-0.01); Neutrophils # (A) 10.02 X 10*3/uL (1.80-7.70); Neutrophils % (A) 79.1 %; Platelet Count 259 X 10*3/uL (140-440); Potassium 3.4 mmol/L (3.5-5.5); RBC 5.14 X 10*6/uL (4.40-5.60); RDW 13.6 % (11.5-14.5); Sodium 141 mmol/L (135-145); Total Bilirubin 0.5 mg/dL (0.3-1.2); WBC 12.67 X 10*3/uL (4.50-10.00)
--- NOTE | 2023-10-16 10:56 | P.CNNES ---
History of Present Illness Consult date: 10/16/23 Requesting physician: Ian Alegre Reason for Consult: altered mental status History of Present Illness: This is a 68-year-old gentleman who presented emergency department because of altered mental status. History is obtained from medical record as well as the patient's nurse. It seems the patient resides with his brother and family found the patient covered in urine and feces and was living in self per the ED physici an. Patient is a poor historian and cannot provide history. Denies of any headache any focal weakness. It seems that he uses a walker to get around and it seems that again he lives with his brother probably younger brother. The nurse no seizure-like activity overnight or today. Medical record it seems that the patient has history of brain tumor, stroke, the mental delay, diabetes hypertension hypothyroidism. I do not see any home medication listed on his medical record. Some of the Workup during this hospital visit consisted of: Initial CBC with differential is unremarkable and the repeat it was white blood cells 12.67K Initial chemistry panel is potassium is 3.2 otherwise rest is unremarkable and the serum glucose is normal as well as the POC glucose Serum alcohol is less than 10 CT of the head is reported as chronic osseous deformity and surgical change in the posterior cranial fossa. 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 Correlate for any known diagnosis. Mild hydrocephaly is unchanged and may be due to the central cerebral atrophy. Correlate to exclude an and component of NPH. Mild to moderate burden of chronic small vessel ischemic disease. Otherwise no acute intracranial abnormality seen. Severe chronic left frontal sinus disease. Personally reviewed the CT and I agree there is no acute or subacute changes. 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 Past Medical History Past Medical History: CVA/TIA, Hyperlipidemia, Thyroid Disorder Additional Past Medical History / Comment(s): past medication data indicates that the pt may have hyperlipidemia and hypo thyroid. History of Any Multi-Drug Resistant Organisms: None Reported Additional Past Surgical History / Comment(s): brain tumor Past Anesthesia/Blood Transfusion Reactions: No Reported Reaction Past Psychological History: No Psychological Hx Reported Additional Psychological History / Comment(s): Single. Does not work outside of the home. No animal exposures. No tobacco or alcohol use Smoking Status: Never smoker Past Alcohol Use History: None Reported Past Drug Use History: None Reported - Past Family History Father Family Medical History: Unable to Obtain Mother Family Medical History: Unable to Obtain Medications and Allergies Home Medications Medication Instructions Recorded Confirmed Type No Known Home Medications 10/15/23 10/15/23 History Allergies Allergy/AdvReac Type Severity Reaction Status Date / Time Penicillins Allergy Severe Anaphylaxis Verified 10/15/23 18:39 Physical Examination - Vital Signs Vital Signs: Vital Signs Temp Pulse Pulse Resp BP BP Pulse Ox 10/16/23 07:00 97.8 F 68 16 105/65 97 10/16/23 00:26 97.9 F 68 18 133/78 98 10/15/23 20:48 97.6 F 74 16 135/70 97 10/15/23 19:44 60 18 143/84 96 10/15/23 14:45 97.8 F 18 119/99 98 Intake and Output 10/15/23 10/16/23 10/16/23 22:59 06:59 14:59 Intake Total 360 Balance 360 Intake: Oral 360 Other: Voiding Method Toilet Toilet # Voids 1 4 3 Weight 44.452 kg General: Sitting on side of bed, eating a sandwich and is not in acute distress. Neuro: Very Limited. Awake alert oriented to self. Upon asking him if he was at home he stated no but cannot tell me where he is at. Does not know the time. He able to identify pen. He is following simple commands but I had to repeat the instructions to him sometimes multiple times. He is very slow to respond to questions. Which is limited The pupils are round equal reactive to light. I had a hard time assessing his visual newman as well as extraocular movement because of his cooperation. No facial weakness. No dysarthria. Tongue is midline moves [id number] without any difficulty Motor the strength is hard to assess individual muscle strength because of his cooperation but he is able to lift up bilateral upper extremity above gravity and appears equal. In the lowers it appears weak but he is able to lift up lowers above gravity and I felt possibly left is worse than the right and it seems the patient uses a walker at baseline. Sensation is normal to touch. Cerebellar is normal [id number] bilaterally Results - Laboratory Findings CBC and BMP: 10/16/23 03:48 10/16/23 03:48 Abnormal Lab Findings: Abnormal Labs 10/15/23 10/15/23 10/15/23 14:54 14:54 19:49 WBC MPV Immature Gran # Neutrophils # PT 13.4 H INR 1.3 H Potassium 3.2 L Anion Gap BUN BUN/Creatinine Ratio Albumin/Globulin Ratio Urine Protein Trace H Urine Ketones 3+ H Urine Blood Small H Urine Bacteria Rare H Hyaline Casts 14 H Urine Mucus Few H 10/16/23 10/16/23 03:48 03:48 WBC 12.67 H MPV 13.4 H Immature Gran # 0.05 H Neutrophils # 10.02 H PT INR Potassium 3.4 L Anion Gap 17.80 H BUN 6.5 L BUN/Creatinine Ratio 7.22 L Albumin/Globulin Ratio 1.41 L Urine Protein Urine Ketones Urine Blood Urine Bacteria Hyaline Casts Urine Mucus Assessment and Plan Assessment: Is a 68-year-old gentleman with a history of brain tumor status post resection and it seems in the posterior region, the frontal delay, stroke, type 2 diabetes, hypertension, hypothyroidism was found by family members covered with urine and feces. It seems that he resides with his younger brother. Episode of encephalopathy of unknown etiology. Possible seizure especially with a history of brain tumor/stroke that can increase risk for cortical irritability and lead to seizure. Rule out acute ischemic stroke. 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 I ordered routine EEG. Ordered MRI of the brain with and without. If he does have acute ischemic stroke then recommend rest of stroke work-up. If MRI of the brain reveals acute or subacute stroke then can consider stopping Keppra. Ordered ammonia level for vitamin B12, folate, TSH It does not seem the patient is on any home medication from medical record but w ill get that information from family members. Reported that he has history of stroke and unsure why he is not on any antiplatelet unsure if it is due to his brain tumor or falls that can increase risk of bleed. Every 4 hours neurochecks PT and OT are consulted Will defer the rest of the medical management the primary and other specialist. The plan is discussed with his nurse. Thank you for the consultation. Dr. Banuelos will resume neurology service tomorrow A.M. Time with Patient: Greater than 30
[2023-10-16] MEDS: levETIRAcetam 500 MG TAB PO SCH (15:47)
--- NOTE | 2023-10-16 16:11 | P.HPIM ---
History of Present Illness H&P Date: 10/15/23 Chief Complaint: Altered mental status 68-year-old male, history of hypertension, diabetes, hypothyroidism, CVA and brain tumor, presenting to the emergency department with concern for confusion and unable to live on his own. Family found patient living in [facility]. Patient w as covered with urine and feces. Patient has been altered. Patient does not have any specific complaints. Patient is a very poor historian so most of the history is obtained from the records It seems that he uses a walker to get around and it seems that again he lives with his brother probably younger brother; no seizure-like activity overnight or today. Patient has not been taking any medications Review of Systems ROS unobtainable: due to mental status Past Medical History Past Medical History: CVA/TIA, Hyperlipidemia, Thyroid Disorder Additional Past Medical History / Comment(s): past medication data indicates that the pt may have hyperlipidemia and hypo thyroid. History of Any Multi-Drug Resistant Organisms: None Reported Additional Past Surgical History / Comment(s): brain tumor Past Anesthesia/Blood Transfusion Reactions: No Reported Reaction Past Psychological History: No Psychological Hx Reported Smoking Status: Never smoker Past Alcohol Use History: None Reported Past Drug Use History: None Reported - Past Family History Father Family Medical History: Unable to Obtain Mother Family Medical History: Unable to Obtain Medications and Allergies Home Medications Medication Instructions Recorded Confirmed Type No Known Home Medications 10/15/23 10/15/23 History Allergies Allergy/AdvReac Type Severity Reaction Status Date / Time Penicillins Allergy Severe Anaphylaxis Verified 10/15/23 18:39 Physical Exam Vitals: Vital Signs Temp Resp BP Pulse Ox 10/15/23 14:45 97.8 F 18 119/99 98 Intake and Output 10/15/23 10/15/23 10/15/23 06:59 14:59 22:59 Other: Weight 44.452 kg General appearance: alert, in no apparent distress, other (Poor personal hygiene) Head exam: Present: atraumatic Eye exam: Present: normal appearance, PERRL, EOMI ENT exam: Present: normal oropharynx Neck exam: Present: normal inspection Respiratory exam: Present: normal lung sounds bilaterally Cardiovascular Exam: Present: regular rate, normal rhythm GI/Abdominal exam: Present: soft. Absent: tenderness Extremities exam: Present: normal inspection Neurological exam: Present: alert, CN II-XII intact. Absent: motor sensory deficit Psychiatric exam: Present: flat affect Skin exam: Present: normal color Results CBC & Chem 7: 10/16/23 03:48 10/16/23 03:48 Labs: Abnormal Lab Results - Last 24 Hours (Table) 10/15/23 10/15/23 Range/Units 14:54 14:54 PT 13.4 H (10.0-12.5) sec INR 1.3 H (<1.2) Potassium 3.2 L (3.5-5.1) mmol/L Assessment and Plan Assessment: 1. Altered mental status -CT of the brain completed in ED reveals chronic osseous deformity and postsurgical changes in the posterior cranial fossa. Mild hydrocephalus is unchanged. Mild to moderate chronic small vessel ischemic disease. Severe chronic left frontal sinus disease -Patient is admitted to telemetry; monitor neurochecks -Consult neurology for further recommendations 2. Adult failure to thrive; according to records patient lives with his brother and is not able to take care of himself; was found by the family covered in urine and feces -We will place a social service consult once stable 3. History of hypertension; not on any therapy; will monitor blood pressure closely while inpatient and make recommendations prior to discharge 4. History of diabetes mellitus; no medications are reported; patient is a poor historian and does not report taking any medications on regular basis -We will monitor Accu-Cheks before every meal and at bedtime with insulin sliding scale 5. History of hypothyroidism; currently not on any thyroid replacement therapy; will order TSH and free T4 6. History of CVA/brain tumor per patient records; CT of the brain shows postsurgical changes in posterior cranial fossa DVT prophylaxis; SCDs only till ruled out for acute CVA CODE STATUS; full code
--- NOTE | 2023-10-16 16:17 | P.PN ---
Subjective Progress Note Date: 10/16/23 68-year-old male, history of hypertension, diabetes, hypothyroidism, CVA and brain tumor, presenting to the emergency department with concern for confusion and unable to live on his own. Family found patient living in [facility]. Patient was covered with urine and feces. Patient has been altered. Patient does not have any specific complaints. Patient is a very poor historian so most of the history is obtained from the records It seems that he uses a walker to get around and it seems that again he lives with his brother probably younger brother; no seizure-like activity overnight or today. Patient has not been taking any medications -CT of the brain completed in ED reveals chronic osseous deformity and postsurgical changes in the posterior cranial fossa. Mild hydrocephalus is unchanged. Mild to moderate chronic small vessel ischemic disease. Severe chronic left frontal sinus disease -Patient has been evaluated by neurology and has been placed on Keppra 500 mg twice daily for concern for seizures; EEG and MRI of the brain is ordered -- Neurology recommending to discontinue Keppra if MRI of the brain reveals acute or subacute stroke -Order ammonia level, vitamin B12, folic acid and TSH Objective - Vital Signs Vital signs: Vital Signs Temp 97.8 F 10/16/23 07:00 Pulse 68 10/16/23 07:00 Resp 16 10/16/23 08:00 BP 105/65 10/16/23 07:00 Pulse Ox 97 10/16/23 07:00 FiO2 Intake & Output 10/15/23 10/16/23 10/16/23 18:59 06:59 18:59 Intake Total 360 Balance 360 Weight 44.452 kg Intake: Oral 360 Other: Voiding Method Toilet Toilet # Voids 4 3 - Exam General appearance: alert, in no apparent distress, other (Poor personal hygiene) Head exam: Present: atraumatic Eye exam: Present: normal appearance, PERRL, EOMI ENT exam: Present: normal oropharynx Neck exam: Present: normal inspection Respiratory exam: Present: normal lung sounds bilaterally Cardiovascular Exam: Present: regular rate, normal rhythm GI/Abdominal exam: Present: soft. Absent: tenderness Extremities exam: Present: normal inspection Neurological exam: Present: alert, CN II-XII intact. Absent: motor sensory deficit Psychiatric exam: Present: flat affect Skin exam: Present: normal color - Labs CBC & Chem 7: 10/16/23 03:48 10/16/23 03:48 Labs: Abnormal Lab Results - Last 24 Hours (Table) 10/15/23 10/15/23 10/15/23 Range/Units 14:54 14:54 19:49 WBC (4.50-10.00) X 10*3/uL MPV (9.5-12.2) FL Immature Gran # (0.00-0.04) X 10*3/uL Neutrophils # (1.80-7.70) X 10*3/uL PT 13.4 H (10.0-12.5) sec INR 1.3 H (<1.2) Potassium 3.2 L (3.5-5.1) mmol/L Anion Gap (4.00-12.00) mmol/L BUN (9.0-27.0) mg/dL BUN/Creatinine Ratio (12.00-20.00) Ratio Albumin/Globulin Ratio (1.60-3.17) Ratio Urine Protein Trace H (Negative) Urine Ketones 3+ H (Negative) Urine Blood Small H (Negative) Urine Bacteria Rare H (None) /hpf Hyaline Casts 14 H (0-2) /lpf Urine Mucus Few H (None) /hpf 10/16/23 10/16/23 Range/Units 03:48 03:48 WBC 12.67 H (4.50-10.00) X 10*3/uL MPV 13.4 H (9.5-12.2) FL Immature Gran # 0.05 H (0.00-0.04) X 10*3/uL Neutrophils # 10.02 H (1.80-7.70) X 10*3/uL PT (10.0-12.5) sec INR (<1.2) Potassium 3.4 L (3.5-5.1) mmol/L Anion Gap 17.80 H (4.00-12.00) mmol/L BUN 6.5 L (9.0-27.0) mg/dL BUN/Creatinine Ratio 7.22 L (12.00-20.00) Ratio Albumin/Globulin Ratio 1.41 L (1.60-3.17) Ratio Urine Protein (Negative) Urine Ketones (Negative) Urine Blood (Negative) Urine Bacteria (None) /hpf Hyaline Casts (0-2) /lpf Urine Mucus (None) /hpf Assessment and Plan Assessment: 1. Altered mental status -CT of the brain completed in ED reveals chronic osseous deformity and postsurgical changes in the posterior cranial fossa. Mild hydrocephalus is unchanged. Mild to moderate chronic small vessel ischemic disease. Severe chronic left frontal sinus disease -Patient is admitted to telemetry; monitor neurochecks -Consult neurology for further recommendations 2. Adult failure to thrive; according to records patient lives with his brother and is not able to take care of himself; was found by the family covered in urine and feces -We will place a social service consult once stable 3. History of hypertension; not on any therapy; will monitor blood pressure closely while inpatient and make recommendations prior to discharge 4. History of diabetes mellitus; no medications are reported; patient is a poor historian and does not report taking any medications on regular basis -We will monitor Accu-Cheks before every meal and at bedtime with insulin sliding scale 5. History of hypothyroidism; currently not on any thyroid replacement therapy; will order TSH and free T4 6. History of CVA/brain tumor per patient records; CT of the brain shows postsurgical changes in posterior cranial fossa DVT prophylaxis; SCDs only till ruled out for acute CVA CODE STATUS; full code
[2023-10-17 01:37] VITALS: BP 147/83; PULSE 65; TEMP 98.2
[2023-10-17 07:46] LABS: African American GFR (CKD) >90 (>60 ml/min/1.73 sqM); Anion Gap 6 mmol/L; Blood Urea Nitrogen 5 mg/dL (9-20); Calcium 9.2 mg/dL (8.4-10.2); Carbon Dioxide 27 mmol/L (22-30); Chloride 109 mmol/L (98-107); Glucose 78 mg/dL (74-99); Non-African American GFR(CKD) >90 (>60 ml/min/1.73 sqM); Sodium 142 mmol/L (137-145)
[2023-10-17] MEDS ORDERED: levETIRAcetam 500 MG TAB ONE ×2 (08:09→20:52)
[2023-10-18] MEDS ORDERED: levETIRAcetam 500 MG TAB ONE ×2 (09:31→19:46)
[2023-10-19] MEDS ORDERED: levETIRAcetam 500 MG TAB ONE ×2 (09:02→19:37)
[2023-10-20] MEDS ORDERED: levETIRAcetam 500 MG TAB ONE (07:55)
--- NOTE | 2023-11-17 10:08 | MR ---
"Nikhil Zhou : 1955 MRI BRAIN without and with CONTRAST CLINICAL HISTORY: 68-year-old male altered mental status, confusion, history of brain tumor DATE: 10/18/2023 TECHNIQUE: Multiplanar, multisequence imaging of the brain and brainstem is performed before and afte r administration of 4.5 mL IV Gadavist. Diffusion-weighted imaging is performed. Comparison: None available during downtime. FINDINGS: Diffusion weighted images demonstrate no evidence of a recent infarct or other diffusion abnormality. There is no extra-axial fluid collection. T2/FLAIR weighted sequences show moderate right white matter signal change in both cerebral hemispher es. There is also volume loss with surrounding bright T2 signal in the lateral right temporal lobe co mpatible with encephalomalacia and gliosis. Gradient sequence shows scattered small foci of susceptibility suggesting either deposits of amyloid or previous small microhemorrhages. This is in addition to susceptibility related to calcium depositi on in the cerebellum, thalamus, and basal ganglia. Postsurgical change along the posterior cranial fossa with excision into the right cerebellar hemisph ere. Avidly enhancing round extra-axial mass anterior right frontal lobe measures 1 cm. Similar 1 cm extra -axial mass posterior left parasagittal region. Findings suggest small meningiomas. This can be corre lated to any available outside priors. There is mild hydrocephalus, Adrien's ratio calculated at 0.35. Otherwise, the brain volume is age appropriate. The major intracranial flow voids are intact. Midline structures demonstrate normal morphology. The craniocervical junction appears within normal limits. Post contrast images demonstrate no other abnormal enhancement. The dural venous sinuses appear paten t. There is extensive opacification in the left frontal sinus that shows heterogeneous soft tissue enhan cement measuring 2.7 x 2.5 x 2.4 cm. Mild mucosal thickening in the ethmoid air cells. Globes are int act. IMPRESSION: 1. No acute intracranial abnormality seen. 2. Heterogeneous enhancing soft tissue in the left frontal sinus measuring 2.7 cm. Correlate for any pain here. Enhancing mass/neoplasm is not excluded at this time. 3. Postsurgical change along the posterior cranial fossa with excision extending into the right cereb ellar hemisphere. There is no abnormal enhancement here. A couple small suspected benign meningiomas measuring 1 cm anterior right frontal lobe and posterior left parasagittal region. 4. Mild hydrocephalus possibly due to central cerebral atrophy. Correlate to exclude a component of N PH. 5. Parenchymal calcifications basal ganglia, thalamus, and cerebellum is nonspecific. Fahr's disease is the differential. 6. Scattered punctate foci of susceptibility throughout the brain could represent amyloid deposition or previous microhemorrhages such as in the setting of hypertension."
== END 2023-10-20 17:37 | disposition home or self-care (01) ==
LOC: EC 14:40 → 6NMEDSUR 18:07
PROVIDERS: ADMIT Internal Medicine; ATTEND Internal Medicine
DX: G93.40 Encephalopathy, unspecified (principal); R62.7 Adult failure to thrive; E11.9 Type 2 diabetes mellitus without complications; I10 Essential (primary) hypertension; E03.9 Hypothyroidism, unspecified; E78.5 Hyperlipidemia, unspecified; Z86.73 Personal history of transient ischemic attack (TIA), and cerebral infarction without residual deficits; Z88.0 Allergy status to penicillin
CPT/HCPCS: 36415; 93005; 80053 ×2; 84443; 82607; 82140; 82746; 84484; 85025 ×2; 85610; 85730; 81001; 71046; 70450; G0480; 70553; 80048; 80320; 94760; 96360; 96361; 99285

== ENCOUNTER 2024-05-18 14:00 | Inpatient (IN) | payer MEDICARE, OTHER ==
--- NOTE | 2024-05-18 14:16 | ED ---
Altered Mental Status HPI - General Chief Complaint: Altered Mental Status Stated Complaint: AMS Time Seen by Provider: 05/18/24 14:02 Source: EMS, RN notes reviewed Mode of arrival: EMS Limitations: altered mental status - History of Present Illness Initial Comments: This is a 68-year-old male who presents to the emergency department for altered mental status. Patient is presenting from the [facility]. He has a history of developmental delays and psychiatric disorders. He had influenza about 3 weeks ago and since then he has continued to decline. They state that he is usually able to feed himself and care for himself, however he has essentially stopped communicating and engaging in any activity whatsoever. They are also concerned about him having increased weakness on the left side, however he is not cooperating with physical exams very well in his current state for them to properly evaluate him. Symptoms continued to persist today and they are concerned about him developing an infection, prompting them to send him here for evaluation. On evaluation of the patient, he is not speaking or engaging in examination whatsoever and does not follow commands. MD Complaint: altered mental status - Related Data Home Medications Medication Instructions Recorded Confirmed 0.9 % Sodium Chloride [Sodium 10 ml IV Q12H PRN 05/18/24 05/18/24 Chloride Flush] Acetaminophen [Tylenol] 650 mg PO Q6H PRN 05/18/24 05/18/24 Lanolin/Mineral Oil [Eucerin 1 applic TOPICAL HS 05/18/24 05/18/24 Original Lotion] levETIRAcetam 500 mg PO BID 05/18/24 05/18/24 Allergies Allergy/AdvReac Type Severity Reaction Status Date / Time Penicillins Allergy Severe Anaphylaxis Verified 05/18/24 15:14 Review of Systems ROS Statement: Those systems with pertinent positive or pertinent negative responses have been documented in the HPI. ROS Other: All systems not noted in ROS Statement are negative. Past Medical History Past Medical History: CVA/TIA, Hyperlipidemia, Thyroid Disorder Additional Past Medical History / Comment(s): past medication data indicates that the pt may have hyperlipidemia and hypo thyroid. History of Any Multi-Drug Resistant Organisms: None Reported Additional Past Surgical History / Comment(s): brain tumor Past Anesthesia/Blood Transfusion Reactions: No Reported Reaction Past Psychological History: No Psychological Hx Reported Smoking Status: Never smoker Past Alcohol Use History: None Reported Past Drug Use History: None Reported - Past Family History Father Family Medical History: Unable to Obtain Mother Family Medical History: Unable to Obtain General Exam Limitations: altered mental status General appearance: alert Head exam: Present: atraumatic, normocephalic, normal inspection Respiratory exam: Present: normal lung sounds bilaterally. Absent: respiratory distress, wheezes, rales, rhonchi, stridor Cardiovascular Exam: Present: normal rhythm, tachycardia GI/Abdominal exam: Present: soft. Absent: distended Neurological exam: Present: alert Skin exam: Present: warm, dry, intact, normal color. Absent: rash Course Vital Signs 05/18/24 05/18/24 05/18/24 14:07 14:12 15:12 Temperature 99.2 F 99.2 F Pulse Rate 101 H 97 100 Respiratory 16 16 20 Rate Blood Pressure 142/126 140/106 161/107 O2 Sat by Pulse 96 95 97 Oximetry 05/18/24 05/18/24 05/18/24 15:55 16:00 16:38 Temperature Pulse Rate 113 H 108 H 93 Respiratory 20 20 20 Rate Blood Pressure 152/93 152/93 136/100 O2 Sat by Pulse 97 97 99 Oximetry Medical Decision Making - Medical Decision Making This is a 68-year-old male who presents to the emergency department for altered mental status. Was pt. sent in by a medical professional or institution? @ -No Did you speak to anyone other than the patient for history? @ -EMS provided all of the history Did you review nursing and triage notes? @ -Yes, and I agree, it is accurate with regards to the patient's symptoms. Were old charts reviewed? @ -No Differential Diagnosis? @ -Differential Altered Mental Status: Hypoglycemia, DKA, hypercapnia, ETOH, overdose, CO poisoning, trauma, myxedema coma, HTN encephalopathy, infection, encephalitis, psychosis, intercranial hemorrhage, hepatic encephalopathy, meningitis, CVA, this is not meant to be an all-inclusive list EKG interpreted by me (3pts min.)? @ -EKG interpreted by me demonstrating the following: Sinus tachycardia. Ventricular rate 112 bpm, ME interval 157 ms, QRS duration 82 ms, QTc 368 ms. X-rays interpreted by me (1pt min.)? @ -Chest x-ray obtained, my interpretation identifies no localized consolidations or infiltrates. CT interpreted by me (1pt min.)? @ -CT scan of the brain obtained. My interpretation identifies ischemic changes in the right frontal lobe. CTA of the head and neck obtained. My interpretation identifies no evidence of an aneurysm. U/S interpreted by me (1pt. min.)? @ -Not obtained What testing was considered but not performed? (CT, X-rays, U/S, labs)? Why? @ -None What meds were considered but not given? Why? @ -None Did you discuss the management of the patient with other professionals? @ -Yes, Dr. Baird, who accepts the patient for admission Did you reconcile home meds? @ -Yes Was smoking cessation discussed for >3mins.? @ -No Was critical care preformed (if so, how long)? @ -No Were there social determinants of health that impacted care today? How? (Homelessness, low income, unemployed, alcoholism, drug addiction, trans portation, low edu. Level, literacy, decrease access to med. care, senior care, rehab)? @ -No Was there de-escalation of care discussed even if they declined? (Discuss DNR or withdrawal of care, Hospice)? @ -No What co-morbidities impacted this encounter? (DM, HTN, Smoking, COPD, CAD, Cancer, CVA, Hep., AIDS, mental health diagnosis, sleep apnea, morbid obesity)? @ -Developmental delay, CVA Was patient admitted / discharged? @ -Admitted. On arrival patient was nonverbal. He was not following commands and we were unable to get any information from him. We also do not have a specific last known well time. He has essentially been declining over the last 3 weeks. Lab work demonstrates mild leukocytosis with a white blood cell count of 12.1. CRP mildly elevated at 2.6 and lactic acid mildly elevated at 2.5. Urinalysis only demonstrates trace leukocyte esterase and rare bacteria. Chest x-ray reveals no acute process. CT scan of the brain demonstrates concern for right VU territory/frontal lobe CVA. CTA of the head and neck obtained as well revealing no evidence of an aneurysm or stenosis. Given that we do not have a last known well time, there is no intervention that can be done at this point. Patient admitted to this facility for suspected acute right VU CVA. Neurology listed as consult. Case discussed with ED attending Dr. Bull. Undiagnosed new problem with uncertain prognosis? @ -None Drug Therapy requiring intensive monitoring for toxicity (Heparin, Nitro, Insulin, Cardizem)? @ -None Were any procedures done? @ -None Diagnosis/symptom? @ -Right VU CVA Acute, or Chronic, or Acute on Chronic? @ -Acute Uncomplicated (without systemic symptoms) or Complicated (systemic symptoms)? @ -Complicated Side effects of treatment? @ -None Exacerbation, Progression, or Severe Exacerbation] @ -Not applicable Poses a threat to life or bodily function? @ -Yes, can lead to - Lab Data Result diagrams: 05/18/24 14:28 05/18/24 14:28 Lab Results 05/18/24 05/18/24 05/18/24 Range/Units 14:28 14:28 14:28 WBC 12.1 H (3.8-10.6) k/uL RBC 5.48 (4.30-5.90) m/uL Hgb 15.1 (13.0-17.5) gm/dL Hct 47.7 (39.0-53.0) % MCV 87.0 (80.0-100.0) fL MCH 27.6 (25.0-35.0) pg MCHC 31.7 (31.0-37.0) g/dL RDW 14.7 (11.5-15.5) % Plt Count 454 H (150-450) k/uL MPV 8.1 Neutrophils % 79 % Lymphocytes % 13 % Monocytes % 5 % Eosinophils % 2 % Basophils % 1 % Neutrophils # 9.5 H (1.3-7.7) k/uL Lymphocytes # 1.6 (1.0-4.8) k/uL Monocytes # 0.6 (0-1.0) k/uL Eosinophils # 0.2 (0-0.7) k/uL Basophils # 0.1 (0-0.2) k/uL PT 12.4 (10.0-12.5) sec INR 1.2 H (<1.2) APTT 26.2 (22.0-30.0) sec Sodium (137-145) mmol/L Potassium (3.5-5.1) mmol/L Chloride (98-107) mmol/L Carbon Dioxide (22-30) mmol/L Anion Gap mmol/L BUN (9-20) mg/dL Creatinine (0.66-1.25) mg/dL Est GFR (CKD-EPI)AfAm (>60 ml/min/1.73 sqM) Est GFR (CKD-EPI)NonAf (>60 ml/min/1.73 sqM) Glucose (74-99) mg/dL Plasma Lactic Acid Aj (0.7-2.0) mmol/L Calcium (8.4-10.2) mg/dL Magnesium (1.6-2.3) mg/dL Total Bilirubin (0.2-1.3) mg/dL AST (17-59) U/L ALT (4-49) U/L Alkaline Phosphatase (38-126) U/L Ammonia (<30) umol/L Troponin I (0.000-0.034) ng/mL C-Reactive Protein (<1.0) mg/dL Total Protein (6.3-8.2) g/dL Albumin (3.5-5.0) g/dL Urine Color Light Yellow Urine Appearance Clear (Clear) Urine pH 6.5 (5.0-8.0) Ur Specific Redfield 1.015 (1.001-1.035) Urine Protein Trace H (Negative) Urine Glucose (UA) Negative (Negative) Urine Ketones Negative (Negative) Urine Blood Moderate H (Negative) Urine Nitrite Negative (Negative) Urine Bilirubin Negative (Negative) Urine Urobilinogen <2.0 (<2.0) mg/dL Ur Leukocyte Esterase Trace H (Negative) Urine RBC 52 H (0-5) /hpf Urine WBC 4 (0-5) /hpf Urine Bacteria Rare H (None) /hpf Urine Mucus Rare H (None) /hpf 05/18/24 05/18/24 05/18/24 Range/Units 14:28 14:28 14:28 WBC (3.8-10.6) k/uL RBC (4.30-5.90) m/uL Hgb (13.0-17.5) gm/dL Hct (39.0-53.0) % MCV (80.0-100.0) fL MCH (25.0-35.0) pg MCHC (31.0-37.0) g/dL RDW (11.5-15.5) % Plt Count (150-450) k/uL MPV Neutrophils % % Lymphocytes % % Monocytes % % Eosinophils % % Basophils % % Neutrophils # (1.3-7.7) k/uL Lymphocytes # (1.0-4.8) k/uL Monocytes # (0-1.0) k/uL Eosinophils # (0-0.7) k/uL Basophils # (0-0.2) k/uL PT (10.0-12.5) sec INR (<1.2) APTT (22.0-30.0) sec Sodium 141 (137-145) mmol/L Potassium 4.1 (3.5-5.1) mmol/L Chloride 102 (98-107) mmol/L Carbon Dioxide 32 H (22-30) mmol/L Anion Gap 7 mmol/L BUN 10 (9-20) mg/dL Creatinine 0.82 (0.66-1.25) mg/dL Est GFR (CKD-EPI)AfAm >90 (>60 ml/min/1.73 sqM) Est GFR (CKD-EPI)NonAf >90 (>60 ml/min/1.73 sqM) Glucose 140 H (74-99) mg/dL Plasma Lactic Acid Aj 2.5 H* (0.7-2.0) mmol/L Calcium 9.4 (8.4-10.2) mg/dL Magnesium 2.2 (1.6-2.3) mg/dL Total Bilirubin 0.3 (0.2-1.3) mg/dL AST 16 L (17-59) U/L ALT 16 (4-49) U/L Alkaline Phosphatase 95 (38-126) U/L Ammonia <9 (<30) umol/L Troponin I <0.012 (0.000-0.034) ng/mL C-Reactive Protein 2.6 H (<1.0) mg/dL Total Protein 7.4 (6.3-8.2) g/dL Albumin 3.9 (3.5-5.0) g/dL Urine Color Urine Appearance (Clear) Urine pH (5.0-8.0) Ur Specific Redfield (1.001-1.035) Urine Protein (Negative) Urine Glucose (UA) (Negative) Urine Ketones (Negative) Urine Blood (Negative) Urine Nitrite (Negative) Urine Bilirubin (Negative) Urine Urobilinogen (<2.0) mg/dL Ur Leukocyte Esterase (Negative) Urine RBC (0-5) /hpf Urine WBC (0-5) /hpf Urine Bacteria (None) /hpf Urine Mucus (None) /hpf - Radiology Data Radiology results: report reviewed, image reviewed Disposition Clinical Impression: Acute right VU stroke Disposition: ADMITTED IP TO THIS HOSP Referrals: Alexx Murdock DO [Primary Care Provider] - 1-2 days
[2024-05-18] MEDS: SODIUM CHLORIDE 0.9% 1,000 ML IV ONE (14:36)
[2024-05-18 14:37] LABS: Basophils # (A) 0.1 k/uL (0-0.2); Basophils % (A) 1 %; Eosinophils # (A) 0.2 k/uL (0-0.7); Eosinophils % (A) 2 %; HCT 47.7 % (39.0-53.0); HGB 15.1 gm/dL (13.0-17.5); Lymphocytes # (A) 1.6 k/uL (1.0-4.8); Lymphocytes % (A) 13 %; MCH 27.6 pg (25.0-35.0); MCHC 31.7 g/dL (31.0-37.0); Mean Platelet Volume 8.1; Monocytes # (A) 0.6 k/uL (0-1.0); Monocytes % (A) 5 %; Neutrophils # (A) 9.5 k/uL (1.3-7.7); Neutrophils % (A) 79 %; Platelet Count 454 k/uL (150-450); RBC 5.48 m/uL (4.30-5.90); RDW 14.7 % (11.5-15.5); WBC 12.1 k/uL (3.8-10.6)
[2024-05-18 14:39] LABS: Appearance,Urine Clear (Clear); Bacteria,Urine Rare /hpf; Bilirubin,Urine Negative (Negative); Blood,Urine Moderate (Negative); Color,Urine Light Yellow; Glucose,Urine (UA) Negative (Negative); Ketones,Urine Negative (Negative); Leukocyte Esterase,Urine Trace (Negative); Mucus,Urine Rare /hpf; Nitrite,Urine Negative (Negative); PH, Urine 6.5 (5.0-8.0); Protein,Urine Trace (Negative); RBC,Urine 52 /hpf (0-5); Specific Gravity,Urine 1.015 (1.001-1.035); Urobilinogen,Urine <2.0 mg/dL (<2.0); WBC,Urine 4 /hpf (0-5)
[2024-05-18 14:47] LABS: INR 1.2 (<1.2); Partial Thromboplastin Time 26.2 sec (22.0-30.0); Prothrombin Time 12.4 sec (10.0-12.5)
[2024-05-18 14:58] LABS: ALT 16 U/L (4-49); AST 16 U/L (17-59); African American GFR (CKD) >90 (>60 ml/min/1.73 sqM); Albumin 3.9 g/dL (3.5-5.0); Alkaline Phosphatase 95 U/L (38-126); Anion Gap 7 mmol/L; Blood Urea Nitrogen 10 mg/dL (9-20); C Reactive Protein 2.6 mg/dL (<1.0); Calcium 9.4 mg/dL (8.4-10.2); Carbon Dioxide 32 mmol/L (22-30); Chloride 102 mmol/L (98-107); Glucose 140 mg/dL (74-99); Magnesium 2.2 mg/dL (1.6-2.3); Non-African American GFR(CKD) >90 (>60 ml/min/1.73 sqM); Potassium 4.1 mmol/L (3.5-5.1); Sodium 141 mmol/L (137-145); Total Bilirubin 0.3 mg/dL (0.2-1.3); Total Protein 7.4 g/dL (6.3-8.2)
--- NOTE | 2024-05-18 15:21 | XR ---
EXAMINATION TYPE: XR chest 2V DATE OF EXAM: 05/18/2024 3:09 PM COMPARISON: Chest x-ray October 15, 2023 CLINICAL INDICATION: Male, 68 years old with history of altered mental status, TECHNIQUE: Frontal and lateral views of the chest are obtained. FINDINGS: Diminished inspiration on current study. There is no focal air space opacity, pleural effus ion, or pneumothorax seen. The cardiac silhouette size is within normal limits. Bridging osteophytes in the thoracic spine are redemonstrated. IMPRESSION: No acute cardiopulmonary process. [facility], , 05/18/2024 3:19 PM
[2024-05-18 15:22] LABS: Lactic Acid, Venous 2.5 mmol/L (0.7-2.0)
--- NOTE | 2024-05-18 15:32 | CT ---
EXAMINATION TYPE: CT brain wo con DATE OF EXAM: 05/18/2024 3:19 PM COMPARISON: . 10/15/2023 CLINICAL INDICATION: Male, 68 years old with history of Altered mental status, AMS. TECHNIQUE: Brain: Axial CT images of the brain were obtained with coronal and sagittal reformats created and rev iewed. Contrast used: None. Oral contrast used: None. CT DLP: 1216.4 mGycm, Automated exposure control for dose reduction was used. FINDINGS: Brain: Extra-axial spaces: No abnormal extra-axial fluid collections. Ventricular system: Within normal limits Cerebral parenchyma: Extensive calcifications involving the bilateral basal ganglia thalamus and the cortex of the bilateral occipital lobes. This is unchanged. New area lemons-white matter differentiatio n in the VU territory of the right frontal lobe series 2032 image 45. Cerebellum: Postsurgical/treatment changes. Mass effect: No evidence of midline shift. Intracranial vasculature: Atherosclerotic calcifications of the intracranial vessels. Soft tissues: Normal. Calvarium/osseous structures: No depressed skull fracture. Paranasal sinuses and mastoid air cells: Mild scattered paranasal sinus disease. Visualized orbits: Orbital contents are intact. IMPRESSION: 1. Right VU territories/frontal lobe CVA. Further evaluation with MRI may be of benefit. 2. Extensive consolidations mineralization that is seen on 10/15/2023. 3. Post surgical changes to the posterior skull and cerebellum. Findings communicated to HANH Arango on 05/18/2024 3:[address] Cl Friedman. [facility], , 05/18/2024 3:30 PM
[2024-05-18] MEDS ORDERED: ACETAMINOPHEN TAB 325 MG TAB PO PRN (15:57)
[2024-05-18] MEDS: ASPIRIN 325 MG TAB PO STA (16:04)
[2024-05-18] MEDS: LABETALOL 5 MG/ML VIAL MDV IVP STA (16:16)
[2024-05-18] MEDS: ASPIRIN 300 MG SUPP RECTAL SCH (16:18)
--- NOTE | 2024-05-18 16:39 | CT ---
EXAMINATION TYPE: CT angio head neck DATE OF EXAM: 05/18/2024 4:02 PM COMPARISON: 05/18/2024. CLINICAL INDICATION: Male, 68 years old with history of CVA; neurological deficit. TECHNIQUE: Axially acquired helical CT angiogram of the head and neck was obtained with contrast. Axi al images are supplemented with 3D reconstructions and MIP images which were post-processed at an in dependent workstation. NASCET criteria used. Contrast used:65 ml mL of Isovue 300 with IV Contrast, Oral contrast used: None. CT DLP: 422.1 mGycm, Automated exposure control for dose reduction was used. FINDINGS: CTA HEAD: No evidence of acute intracranial hemorrhage, mass effect, or midline shift. The ventricles, sulci, a nd cisterns are unremarkable. Atherosclerosis of the intracranial vasculature. Vertebral arteries: The vertebral arteries are patent. Vertebral artery dominance: Codominant Basilar artery: The basilar artery is intact. The basilar artery bifurcation is normal. Internal Carotid arteries: The cervical, petrous, cavernous and supraclinoid segments are normal. VU: Diminutive right A1 segment. Patent with no evidence of aneurysm. ACOM: Present without evidence of aneurysm. MCA: Patent with no evidence of aneurysm. [employer]ING [employer]ENDANT: origin of the left and atrophic right. Patent with no evidence of aneurysm. PCOM: Hypoplastic bilaterally. Dural sinuses: Patent. CTA NECK: Right Carotid System: The common carotid artery and external carotid artery are patent. The carotid bifurcation demonstrate s no evidence of hemodynamically significant stenosis. The remaining portions of the internal carotid artery demonstrate normal size without significant narrowing. Left Carotid System: The common carotid artery and external carotid artery are patent. The carotid bifurcation demonstrate s no evidence of hemodynamically significant stenosis. The remaining portions of the internal carotid artery demonstrate normal size without significant narrowing. Vertebral arteries are patent without evidence hemodynamically significant stenosis. There is a three-vessel aortic arch. The origins of the great vessels are patent. No evidence of hemo dynamically significant stenosis. Left frontal sinus retention cyst. IMPRESSION: 1. No evidence of dissection of the cervical internal carotid arteries or vertebral arteries. 2. No any evidence of significant stenosis at the carotid bifurcations. 3. No evidence of intracranial high-grade stenosis or intracranial aneurysm. 4. Diminutive right A1 segment. [facility], , 05/18/2024 4:37 PM
[2024-05-18] MEDS ORDERED: levETIRAcetam 500 MG TAB PO SCH (21:00)
[2024-05-18] MEDS ORDERED: levETIRAcetam IV 500 MG in SODIUM CHLORIDE 0.9% 250 ML IVPB SCH (21:00)
[2024-05-18] MEDS: levETIRAcetam IV 500 MG/5 ML VIAL IVP SCH (21:56)
[2024-05-18] MEDS: HEPARIN SODIUM,PORCINE 5,000 UNIT/ML 1 ML VIAL SQ SCH (21:56)
[2024-05-18] MEDS: MINERAL OIL-WHITE PETROLATUM 120 GM JAR TOPICAL SCH (21:56)
[2024-05-19 00:26] LABS: Influenza A Not Detected (Not Detectd); Influenza B Not Detected (Not Detectd); RSV Not Detected (Not Detectd)
--- NOTE | 2024-05-19 02:20 | HP ---
HISTORY AND PHYSICAL CHIEF COMPLAINT: Change in mental status. HISTORY OF PRESENT ILLNESS: This is a 68-year-old gentleman with a past medical history of multiple medical problems including development delay and as well as psychiatric disorders and also history of cancer, had influenza apparently previously. The patient was apparently verbalizing noises previously, but currently the patient became completely nonverbal and had some weakness on the left side. Evaluation showed right anterior cerebral artery infarction in the brain. The patient was admitted for further evaluation and treatment. The patient is unable to provide any coherent history. Most of the history is taken by discussion with staff and review of the chart at this time. CTA angio showed diminutive right A1 segment, but no stenosis. PAST MEDICAL HISTORY: Reviewed include CVA, hypothyroidism, history of brain tumor, recent influenza. Rest of the history and rest of the chart are also reviewed. HOME MEDICATIONS: Reviewed include Keppra. Dose and rest of medications reviewed. ALLERGIES: Penicillin. FAMILY HISTORY: Could not be taken. SOCIAL HISTORY: Could not be taken. REVIEW OF SYSTEMS: Could not be taken. PHYSICAL EXAMINATION: VITAL SIGNS: Pulse is 99, blood pressure 128/90, respirations 18. HEENT: Conjunctivae normal. NECK: No JVD. CARDIOVASCULAR: S1, S2. RESPIRATIONS: Breath sounds diminished at the bases. A few scattered rhonchi. ABDOMEN: Soft, nontender. LEGS: No edema. No swelling. NERVOUS SYSTEM: As mentioned, completely cannot be examined. Flaccid left-sided weakness. SKIN: No ulcers. LABORATORY DATA: Noted. ASSESSMENT: 1. Acute cerebrovascular accident involving the right anterior cerebral artery territory causing left-sided weakness. 2. Change in mental status. 3. History of recent influenza. 4. History of previous cerebrovascular accident, transient ischemic attack. 5. History of brain tumor. 6. Hyperlipidemia. 7. Hypothyroidism. 8. Multiple complex medical issues. RECOMMENDATIONS AND DISCUSSION: This is a 68-year-old gentleman, who presented with multiple complex medical issues. We will monitor the patient closely. Initiate antiplatelet treatment. DVT prophylaxis. Neurology consultation, neurovascular workup. We will continue with Keppra IV and monitor closely. Prognosis guarded. Further recommendations to follow. See orders for further details. I would also recommend flu testing also just to make sure. Home medications will be continued once they are confirmed. MMODL / IJN: [id number] /
[2024-05-19 08:28] LABS: Basophils # (A) 0.1 k/uL (0-0.2); Basophils % (A) 1 %; Eosinophils # (A) 0.2 k/uL (0-0.7); Eosinophils % (A) 2 %; HCT 45.2 % (39.0-53.0); HGB 14.1 gm/dL (13.0-17.5); Hypochromasia Slight; Lymphocytes # (A) 1.5 k/uL (1.0-4.8); Lymphocytes % (A) 14 %; MCH 27.6 pg (25.0-35.0); MCHC 31.1 g/dL (31.0-37.0); MCV 88.5 fL (80.0-100.0); Mean Platelet Volume 8.6; Monocytes # (A) 0.6 k/uL (0-1.0); Monocytes % (A) 6 %; Neutrophils # (A) 8.6 k/uL (1.3-7.7); Neutrophils % (A) 77 %; Platelet Count 428 k/uL (150-450); RDW 14.8 % (11.5-15.5); WBC 11.1 k/uL (3.8-10.6)
[2024-05-19 08:31] LABS: African American GFR (CKD) >90 (>60 ml/min/1.73 sqM); Anion Gap 6 mmol/L; Blood Urea Nitrogen 12 mg/dL (9-20); Carbon Dioxide 30 mmol/L (22-30); Chloride 107 mmol/L (98-107); Glucose 120 mg/dL (74-99); Non-African American GFR(CKD) >90 (>60 ml/min/1.73 sqM); Potassium 4.1 mmol/L (3.5-5.1); Sodium 143 mmol/L (137-145)
[2024-05-19] MEDS ORDERED: ASPIRIN 325 MG TAB PO SCH (09:00)
[2024-05-19] MEDS: PANTOPRAZOLE 40 MG/10 ML VIAL IVP SCH (10:00)
--- NOTE | 2024-05-19 12:21 | P.CNNES ---
History of Present Illness Consult date: 05/19/24 Requesting physician: Jennifer Villalpando Reason for Consult: right nneka cva History of Present Illness: This is a 68-year-old gentleman with history of developmental delay, psychiatric disorder who presented emergency department because of altered mental status. History is obtained from medical records since patient is unable to provide the history. Per the ED note the patient is presenting from [facility] facility. It seems that the patient had influenza about 3 weeks ago and since then the patient is declining. It seems that at baseline he usually is able to feed himself and care for himself however he is declining and stopped communicating engaging in any activity. Also there is a concern he had weakness over the left side and he is not speaking or engaging in any examination. Some of the work of the workup during this hospital visit consisted of: Patient is afebrile so far White Blood cell is 12.1 thousand and repeat is 11.1K. Plasma lactic acid vein is 2.5 repeat is 1.5 Sodium, calcium, magnesium are within normal limits Ammonia is less than 9 CRP is 2.6 Influenza A/B/RSV/SARS COVID [address] of the head is reported as right NNEKA territory/frontal lobe CVA. Further evaluation with MRI may be of benefit. Extensive consolation mineralization that is seen on 10/15/2023. Postsurgical changes in the posterior skull and cerebellum. I personally reviewed the CT head and I do not see what reading radiologist marked and subacute stroke due to acute or artifact. CT angiography of the head and neck is reported as no evidence of dissection of cervical internal carotid artery or vertebral artery. No evidence of significant stenosis at the carotid bifurcation. No evidence of intracranial high-grade stenosis or intracranial aneurysm. Diminutive right A1 segment. Review of Systems Limited but as per HPI. Past Medical History Past Medical History: CVA/TIA, Hyperlipidemia, Thyroid Disorder Additional Past Medical History / Comment(s): past medication data indicates that the pt may have hyperlipidemia and hypo thyroid. History of Any Multi-Drug Resistant Organisms: None Reported Additional Past Surgical History / Comment(s): brain tumor Past Anesthesia/Blood Transfusion Reactions: No Reported Reaction Past Psychological History: No Psychological Hx Reported Smoking Status: Never smoker Past Alcohol Use History: None Reported Past Drug Use History: None Reported - Past Family History Father Family Medical History: Unable to Obtain Mother Family Medical History: Unable to Obtain Medications and Allergies Home Medications Medication Instructions Recorded Confirmed Type 0.9 % Sodium Chloride [Sodium 10 ml IV Q12H PRN 05/18/24 05/18/24 History Chloride Flush] Acetaminophen [Tylenol] 650 mg PO Q6H PRN 05/18/24 05/18/24 History Lanolin/Mineral Oil [Eucerin 1 applic TOPICAL HS 05/18/24 05/18/24 History Original Lotion] levETIRAcetam 500 mg PO BID 05/18/24 05/18/24 History Allergies Allergy/AdvReac Type Severity Reaction Status Date / Time Penicillins Allergy Severe Anaphylaxis Verified 05/18/24 15:14 Physical Examination - Vital Signs Vital Signs: Vital Signs Temp Pulse Resp BP Pulse Ox 05/19/24 09:55 90 22 146/102 95 05/19/24 08:30 98.7 F 98 20 158/109 96 05/19/24 05:00 101 H 18 132/96 95 05/19/24 03:00 99 18 143/98 96 05/19/24 00:00 100 18 131/99 94 L 05/18/24 23:00 100 18 161/103 96 05/18/24 22:00 98 18 120/97 96 05/18/24 21:00 97 18 127/98 96 05/18/24 19:50 99 18 128/93 96 05/18/24 18:43 88 20 134/90 98 05/18/24 18:00 78 16 132/106 98 05/18/24 17:33 92 16 129/74 98 05/18/24 16:38 93 20 136/100 99 05/18/24 16:00 108 H 20 152/93 97 05/18/24 15:55 113 H 20 152/93 97 05/18/24 15:12 100 20 161/107 97 05/18/24 14:12 99.2 F 97 16 140/106 95 05/18/24 14:07 99.2 F 101 H 16 142/126 96 GENERAL: The patient is lying in bed and does not appear in acute distress. HENT: Supple neck. NEUROLOGICAL: Very limited. Patient was sleeping but to voice he will open his eyes and the primary gaze is midline. He is not verbalizing or following commands He just seems kind of restless and moves his right foot rapidly. No facial weakness from limitation. Neuro the strength is very limited in assessment. Tone is somewhat decreased throughout. According to the nurse it seems that yesterday he lifted up she thinks the right arm and he scratches knows that she was notified. Results - Laboratory Findings CBC and BMP: 05/19/24 07:40 05/19/24 07:40 Abnormal Lab Findings: Abnormal Labs 05/18/24 05/18/24 05/18/24 14:28 14:28 14:28 WBC 12.1 H Plt Count 454 H Neutrophils # 9.5 H INR 1.2 H Carbon Dioxide Glucose Plasma Lactic Acid Aj AST C-Reactive Protein Urine Protein Trace H Urine Blood Moderate H Ur Leukocyte Esterase Trace H Urine RBC 52 H Urine Bacteria Rare H Urine Mucus Rare H 05/18/24 05/18/24 05/19/24 14:28 14:28 07:40 WBC 11.1 H Plt Count Neutrophils # 8.6 H INR Carbon Dioxide 32 H Glucose 140 H Plasma Lactic Acid Aj 2.5 H* AST 16 L C-Reactive Protein 2.6 H Urine Protein Urine Blood Ur Leukocyte Esterase Urine RBC Urine Bacteria Urine Mucus 05/19/24 07:40 WBC Plt Count Neutrophils # INR Carbon Dioxide Glucose 120 H Plasma Lactic Acid Aj AST C-Reactive Protein Urine Protein Urine Blood Ur Leukocyte Esterase Urine RBC Urine Bacteria Urine Mucus Assessment and Plan Assessment: This is a 68-year-old gentleman with history of the mental delay, psychiatric disorder who presents to the emergency department from [facility] for altered mental status. It seems that he had influenza 3 weeks ago and since then he has been declining not interactive verbalizing not engaging with conversation or activities. CT of the head shows concern for right NNEKA territory/frontal CVA Acute to subacute stroke over the right NNEKA/frontal territory that seems suspicious on the CT Altered mental status due to above as well as metabolic encephalopathy. Underlying developmentally delay Underlying psychiatric disease issue Plan: I ordered MRI Brain, 2D echo. Patient is on ASA 300mg suppository. I started the patient on Lipitor 40mg qhs. Continue neuro checks Cardiac monitoring PT, OT, CSO are consulted Patient is on Keppra 500mg bid (home medication). Will defer the rest of medical management to primary team. For DVT Prophylaxis: On Subq heparin. The plan is discussed with his nurse. Thank you for the consultation. Time with Patient: Greater than 30
[2024-05-19 13:35] LABS: Chol/HDL Ratio 4.69 Ratio
[2024-05-19] MEDS: hydrALAZINE HCL 20 MG/ML 1 ML VIAL IVP PRN (20:51)
[2024-05-19] MEDS: ATORVASTATIN 40 MG TAB PO SCH (20:58)
--- NOTE | 2024-05-20 08:59 | PN ---
PROGRESS NOTE DATE OF SERVICE: 05/19/2024 HISTORY OF PRESENT ILLNESS: This 68-year-old gentleman who was admitted with change in mental status, has acute stroke. The patient continues to be barely responsive, monitored in the ER at this time. The patient has multiple underlying diseases also. Neurology consultation is in progress. PAST MEDICAL HISTORY: Could not be taken. REVIEW OF SYSTEMS: Could not be taken. CURRENT MEDICATIONS: Reviewed and include Protonix. Dose and rest of medications noted. PHYSICAL EXAMINATION: VITAL SIGNS: Pulse is 105, blood pressure 158/128, respirations 18. HEENT: Conjunctivae normal. NECK: No JVD. CARDIOVASCULAR: S1, S2. RESPIRATIONS: Breath sounds diminished at the bases. A few scattered rhonchi. ABDOMEN: Soft. NERVOUS SYSTEM: Some flaccidity on the left side. Otherwise, full exam not possible. LABORATORY DATA: Reviewed. ASSESSMENT: 1. Acute cerebrovascular accident involving the right anterior cerebral artery territory causing left-sided weakness. 2. Change in mental status. 3. History of recent influenza. 4. History of previous cerebrovascular accident/transient ischemic attack. 5. History of brain tumor. 6. Hypertension. 7. Hyperlipidemia. 8. History of developmental delay. 9. Multiple complex medical issues. RECOMMENDATIONS: Recommend to continue current management and continue symptomatic treatment. Continue with antiplatelet agents. Repeat labs. Speech pathology consultation on Tuesday. Otherwise, I would also recommend continue with Neurology consultation. Monitor blood pressure closely. I would recommend p.r.n. hydralazine. Guarded prognosis. Further recommendations to follow. MMODL / IJN: [id number] /
[2024-05-20 11:51] LABS: Basophils # (A) 0.1 k/uL (0-0.2); Basophils % (A) 1 %; Eosinophils # (A) 0.1 k/uL (0-0.7); Eosinophils % (A) 1 %; HCT 46.7 % (39.0-53.0); HGB 14.6 gm/dL (13.0-17.5); Hypochromasia Slight; Lymphocytes # (A) 1.4 k/uL (1.0-4.8); Lymphocytes % (A) 11 %; MCH 27.7 pg (25.0-35.0); MCHC 31.3 g/dL (31.0-37.0); MCV 88.7 fL (80.0-100.0); Mean Platelet Volume 8.4; Monocytes # (A) 0.6 k/uL (0-1.0); Monocytes % (A) 5 %; Neutrophils # (A) 10.8 k/uL (1.3-7.7); Neutrophils % (A) 82 %; Platelet Count 392 k/uL (150-450); RBC 5.27 m/uL (4.30-5.90); RDW 14.9 % (11.5-15.5); WBC 13.2 k/uL (3.8-10.6)
[2024-05-20 12:13] LABS: African American GFR (CKD) >90 (>60 ml/min/1.73 sqM); Anion Gap 9 mmol/L; Blood Urea Nitrogen 19 mg/dL (9-20); Calcium 9.1 mg/dL (8.4-10.2); Carbon Dioxide 26 mmol/L (22-30); Chloride 111 mmol/L (98-107); Glucose 122 mg/dL (74-99); Non-African American GFR(CKD) >90 (>60 ml/min/1.73 sqM); Potassium 3.5 mmol/L (3.5-5.1); Sodium 146 mmol/L (137-145)
--- NOTE | 2024-05-20 13:52 | P.PN ---
Subjective Progress Note Date: 05/20/24 I am following up with the patient and he is about the same. Objective - Vital Signs Vital signs: Vital Signs Temp 97.7 F 05/20/24 11:28 Pulse 111 H 05/20/24 11:28 Resp 18 05/20/24 11:28 BP 145/99 05/20/24 11:28 Pulse Ox 94 L 05/20/24 11:28 FiO2 Intake & Output 05/19/24 05/20/24 05/20/24 17:59 06:59 18:59 Other: Voiding Method External Catheter - Exam GENERAL: The patient is lying in bed and does not appear in acute distress. HENT: Supple neck. NEUROLOGICAL: Very limited. Patient is severely drowsy and briefly open eyes. He is not verbalizing or fol lowing commands He just seems kind of restless and moves his right foot rapidly. No facial weakness from limitation. Neuro the strength is very limited in assessment. Tone is somewhat decreased throughout. Some of the work of the workup during this hospital visit consisted of: Patient is afebrile so far White Blood cell is 12.1 thousand and repeat is 11.1K. Plasma lactic acid vein is 2.5 repeat is 1.5 Sodium, calcium, magnesium are within normal limits Ammonia is less than 9 CRP is 2.6 Lipid panel: TG 122, Cholestrol 209, LDL 140, HDL 44. Influenza A/B/RSV/SARS COVID [address] of the head is reported as right VU territory/frontal lobe CVA. Further evaluation with MRI may be of benefit. Extensive consolation mineralization that is seen on 10/15/2023. Postsurgical changes in the posterior skull and cerebellum. I personally reviewed the CT head and I do not see what reading radiologist marked and subacute stroke due to acute or artifact. CT angiography of the head and neck is reported as no evidence of dissection of cervical internal carotid artery or vertebral artery. No evidence of significant stenosis at the carotid bifurcation. No evidence of intracranial high-grade stenosis or intracranial aneurysm. Diminutive right A1 segment. - Labs CBC & Chem 7: 05/20/24 11:40 05/20/24 11:40 Labs: Abnormal Lab Results - Last 24 Hours (Table) 05/19/24 05/20/24 05/20/24 Range/Units 07:40 11:40 11:40 WBC 13.2 H (3.8-10.6) k/uL Neutrophils # 10.8 H (1.3-7.7) k/uL Sodium 146 H (137-145) mmol/L Chloride 111 H (98-107) mmol/L Glucose 122 H (74-99) mg/dL Cholesterol 209.00 H (0.00-200.00) mg/dL LDL Cholesterol, Calc 140.0 H (0.0-131.0) mg/dL Microbiology - Last 24 Hours (Table) 05/18/24 14:41 Urine Culture - Final Urine,Catheterized 05/18/24 14:10 Blood Culture - Preliminary Blood Assessment and Plan Assessment: This is a 68-year-old gentleman with history of the mental delay, psychiatric disorder who presents to the emergency department from [facility] for altered mental status. It seems that he had influenza 3 weeks ago and since then he has been declining not interactive verbalizing not engaging with conversation or activities. CT of the head shows concern for right VU territory/frontal CVA Acute to subacute stroke over the right VU/frontal territory that seems suspicious on the CT Altered mental status due to above as well as metabolic encephalopathy. Underlying developmentally delay Underlying psychiatric disease issue Plan: Pending MRI Brain, 2D echo. Patient is on ASA 300mg suppository. I started the patient on Lipitor 40mg qhs. Continue neuro checks Cardiac monitoring PT, OT, FELLMONGERING MACHINE OPERATOR are consulted Patient is on Keppra 500mg bid (home medication). Ordered routine EEG. Consulted I.D. team for leukocytosis. Patient is afebrile. Will defer the rest of medical management to primary team. For DVT Prophylaxis: On Subq heparin. Time with Patient: Less than 30
[2024-05-20] MEDS: SODIUM CHLORIDE 0.45% 1,000 ML IV SCH (14:56)
--- NOTE | 2024-05-20 23:02 | P.CONS ---
History of Present Illness - Reason for Consult Consult date: 05/20/24 Mental status changes leukocytosis Requesting physician: Randy Chaudhari - Chief Complaint Weakness and mental status changes x days - History of Present Illness Patient is a 68-year-old male with a past medical history significant for CVA TIA hyperlipidemia, developmental delay and psychiatric disorder assisted resident has been sent to the hospital 2 days ago for evaluation of mental status changes from the assisted apparently the patient did have influenza infection about 3 weeks ago and since then the patient seem to have decline he usually was able to feed himself and care for himself however lately the patient essentially stopped communicating and engaging in any activity whatsoever Naus noted to have increasing weakness on left side with the symptoms the patient was sent to the hospital, on arrival to the ER patient did have a low-grade fever of 99.2 however subsequently patient has been afebrile patient is mildly tachycardic but not hypotensive or hypoxic and no need for supplemental oxygen patient did have white count of 12.1 which was down to 11.1 yesterday but is 13.2 today with a left shift creatinine 0.80 electrolytes has been normal lactic acid was 1.5 influenza RSV COVID testing has been negative UA was negative cultures are negative patient did have a blood culture which are currently pending chest x-ray report negative for acute cardiopulmonary disease process patient has been evaluated by neurology did have CT of the brain with evidence of right VU territory frontal lobe CVA infectious disease was consulted today b y neurology concerning for leukocytosis with mental status changes and concern for possible infection most information has been obtained from review the chart as the patient was unable to provide any history Review of Systems Positive points has been mentioned in HPI complete review could not be obtained because of his underlying mental status Past Medical History Past Medical History: CVA/TIA, Hyperlipidemia, Thyroid Disorder Additional Past Medical History / Comment(s): past medication data indicates that the pt may have hyperlipidemia and hypo thyroid. History of Any Multi-Drug Resistant Organisms: None Reported Additional Past Surgical History / Comment(s): brain tumor Past Anesthesia/Blood Transfusion Reactions: No Reported Reaction Past Psychological History: No Psychological Hx Reported Smoking Status: Never smoker Past Alcohol Use History: None Reported Past Drug Use History: None Reported - Past Family History Father Family Medical History: Unable to Obtain Mother Family Medical History: Unable to Obtain Medications and Allergies Home Medications Medication Instructions Recorded Confirmed Type 0.9 % Sodium Chloride [Sodium 10 ml IV Q12H PRN 05/18/24 05/18/24 History Chloride Flush] Acetaminophen [Tylenol] 650 mg PO Q6H PRN 05/18/24 05/18/24 History Lanolin/Mineral Oil [Eucerin 1 applic TOPICAL HS 05/18/24 05/18/24 History Original Lotion] levETIRAcetam 500 mg PO BID 05/18/24 05/18/24 History Allergies Allergy/AdvReac Type Severity Reaction Status Date / Time Penicillins Allergy Severe Anaphylaxis Verified 05/18/24 15:14 Physical Exam Vitals: Vital Signs Temp Pulse Pulse Resp BP BP Pulse Ox 05/20/24 14:18 108 H 05/20/24 11:28 97.7 F 111 H 18 145/99 94 L 05/20/24 08:30 97.8 F 112 H 16 131/105 96 05/20/24 05:13 123 H 16 154/96 96 05/20/24 03:00 118 H 18 157/111 94 L 05/20/24 01:00 116 H 18 163/116 95 05/19/24 21:48 104 H 20 152/107 96 05/19/24 20:50 102 H 18 175/111 95 05/19/24 17:21 103 H 18 144/111 94 L 05/19/24 16:23 113 H 18 171/112 95 Intake and Output 05/19/24 05/20/24 05/20/24 21:59 06:59 14:59 Output Total 400 Balance -400 Output: Urine 400 Other: Voiding Method External Catheter # Bowel Movements 1 GENERAL DESCRIPTION: Elderly male lying in bed, no distress. No tachypnea or accessory muscle of respiration use. HEENT: Shows Pallor , no scleral icterus. Oral mucous membrane is dry. NECK: Trachea central, no thyromegaly. LUNGS: Unlabored breathing. Clear to auscultation anteriorly. No wheeze or crackle. HEART: S1, S2, regular rate and rhythm. No loud murmur ABDOMEN: Soft, no tenderness EXTREMITIES: No edema of feet. SKIN: No rash, no masses palpable. NEUROLOGICAL: The patient is awake, but nonverbal orientation could not be determined no neck rigidity Results CBC & Chem 7: 05/20/24 11:40 05/20/24 11:40 Labs: Abnormal Lab Results - Last 24 Hours (Table) 05/20/24 05/20/24 Range/Units 11:40 11:40 WBC 13.2 H (3.8-10.6) k/uL Neutrophils # 10.8 H (1.3-7.7) k/uL Sodium 146 H (137-145) mmol/L Chloride 111 H (98-107) mmol/L Glucose 122 H (74-99) mg/dL Microbiology - Last 24 Hours (Table) 05/18/24 14:41 Urine Culture - Final Urine,Catheterized 05/18/24 14:10 Blood Culture - Preliminary Blood Assessment and Plan (1) Leukocytosis Current Visit: Yes Status: Acute Code(s): D72.829 - ELEVATED WHITE BLOOD CELL COUNT, UNSPECIFIED SNOMED Code(s): 224381389 (2) Altered mental status Current Visit: No Status: Acute Code(s): R41.82 - ALTERED MENTAL STATUS, UNSPECIFIED SNOMED Code(s): 281678678 Plan: 1patient presented to hospital with mental status changes and there was concern for possible CVA patient did not have any high-grade fever white count is mildly elevated and apparently recently did have a influenza A infection about 3 weeks ago however the chest x-ray were reported negative for acute cardiopulmonary disease process urine is negative abdominal soft on clinical examination no evidence of any cellulitis or skin breakdown and no neck rigidity currently no obvious focus of infection 2-we will go ahead check a CRP and procalcitonin level and follow-up on the blood culture 3-May benefit from LP to complete the workup for infectious process We will follow on clinical condition and cultures to further adjust medication if needed Thank you for this consultation we will follow the patient along with you Dictation was produced using [employer] dictation software. please excuse any grammatical, word or spelling errors. Time with Patient: Greater than 30
--- NOTE | 2024-05-21 02:24 | PN ---
PROGRESS NOTE SUBJECTIVE: This is a 68-year-old gentleman, who was admitted with change in mental status and acute stroke. The patient is barely responsive at this time. The patient, apparently, is [facility] and also had a public legal guardian. The patient is n.p.o. currently. PAST MEDICAL HISTORY: Reviewed. REVIEW OF SYSTEMS: Could not be taken. CURRENT MEDICATIONS: Reviewed. PHYSICAL EXAMINATION: VITAL SIGNS: Pulse is 111, blood pressure 145/90, respirations 18. HEENT: Conjunctivae normal. NECK: No JVD. CARDIOVASCULAR: S1, S2. RESPIRATIONS: Breath sounds diminished at the bases. A few scattered rhonchi. ABDOMEN: Soft. NERVOUS SYSTEM: Diffusely weak. Left side is more flaccid. LABORATORY DATA: Noted. ASSESSMENT: 1. Acute cerebrovascular accident involving the right anterior cerebral artery territory, causing left-sided weakness. 2. Change in mental status. 3. Hypernatremia. 4. History of recent influenza. 5. History of previous cerebrovascular accident/transient ischemic attack. 6. History of brain tumor. 7. Hypertension. 8. Hyperlipidemia. 9. History of development delay. 10.History of multiple complex medical issues. 11.Public legal guardian. RECOMMENDATIONS: This 68-year-old gentleman presented with multiple complex medical issues. We will monitor the patient closely. Change the fluid to half-normal saline. Otherwise, I would recommend speech pathology evaluation. Overall, prognosis is extremely guarded and we will discuss with the legal guardian in the next few days regarding the further course of action. We will closely follow with Neurology at this time for neurovascular workup. Prognosis is guarded. Further recommendations to follow. MMODL / IJN: [id number] /
[2024-05-21 05:23] LABS: Basophils # (A) 0.1 k/uL (0-0.2); Basophils % (A) 1 %; Eosinophils # (A) 0.2 k/uL (0-0.7); Eosinophils % (A) 1 %; HCT 47.5 % (39.0-53.0); HGB 14.7 gm/dL (13.0-17.5); Hypochromasia Slight; Lymphocytes # (A) 1.7 k/uL (1.0-4.8); Lymphocytes % (A) 14 %; MCH 27.5 pg (25.0-35.0); MCHC 30.9 g/dL (31.0-37.0); MCV 88.8 fL (80.0-100.0); Monocytes # (A) 0.7 k/uL (0-1.0); Monocytes % (A) 6 %; Neutrophils # (A) 9.3 k/uL (1.3-7.7); Neutrophils % (A) 77 %; Platelet Count 389 k/uL (150-450); RBC 5.35 m/uL (4.30-5.90)
[2024-05-21 05:49] LABS: African American GFR (CKD) >90 (>60 ml/min/1.73 sqM); Anion Gap 10 mmol/L; Blood Urea Nitrogen 18 mg/dL (9-20); Calcium 8.9 mg/dL (8.4-10.2); Carbon Dioxide 26 mmol/L (22-30); Chloride 111 mmol/L (98-107); Glucose 95 mg/dL (74-99); Non-African American GFR(CKD) >90 (>60 ml/min/1.73 sqM); Potassium 3.4 mmol/L (3.5-5.1); Sodium 147 mmol/L (137-145)
--- NOTE | 2024-05-21 13:42 | P.PN ---
Subjective Progress Note Date: 05/21/24 I am following-up with the patient and per the nurse he is more awake today compared to yesterday. He continues to be unresponsive and not following commands. Objective - Vital Signs Vital signs: Vital Signs Temp 97.9 F 05/20/24 20:00 Pulse 105 H 05/21/24 12:00 Resp 16 05/21/24 13:02 BP 131/72 05/21/24 12:00 Pulse Ox 97 05/21/24 03:53 FiO2 Intake & Output 05/20/24 05/21/24 05/21/24 18:59 06:59 18:59 Output Total 400 Balance -400 Weight 67.8 kg 68.5 kg Output: Urine 400 Other: Voiding Method External Catheter External Catheter External Catheter # Voids 1 1 # Bowel Movements 1 - Exam GENERAL: The patient is lying in bed and does not appear in acute distress. HENT: Supple neck. NEUROLOGICAL: Very limited. Patient is moderately to severely drowsy and does open eyes more. He is not verbalizing or following commands No facial weakness from limitation. Neuro the strength is very limited in assessment. Tone is somewhat increased in uppers. Some of the work of the workup during this hospital visit consisted of: Patient is afebrile so far Sodium is going up and current is 147. White Blood cell is 12.0K Plasma lactic acid vein is 2.5 repeat is 1.5 Sodium, calcium, magnesium are within normal limits Ammonia is less than 9 CRP is 2.6 Lipid panel: TG 122, Cholestrol 209, LDL 140, HDL 44. Influenza A/B/RSV/SARS COVID [address] of the head is reported as right VU territory/frontal lobe CVA. Further evaluation with MRI may be of benefit. Extensive consolation mineralization that is seen on 10/15/2023. Postsurgical changes in the posterior skull and cerebellum. I personally reviewed the CT head and I do not see what reading radiologist marked and subacute stroke due to acute or artifact. CT angiography of the head and neck is reported as no evidence of dissection of cervical internal carotid artery or vertebral artery. No evidence of significant stenosis at the carotid bifurcation. No evidence of intracranial high-grade stenosis or intracranial aneurysm. Diminutive right A1 segment. - Labs CBC & Chem 7: 05/21/24 04:17 05/21/24 04:17 Labs: Abnormal Lab Results - Last 24 Hours (Table) 05/19/24 05/21/24 05/21/24 Range/Units 07:40 04:17 04:17 WBC 12.0 H (3.8-10.6) k/uL MCHC 30.9 L (31.0-37.0) g/dL Neutrophils # 9.3 H (1.3-7.7) k/uL Sodium 147 H (137-145) mmol/L Potassium 3.4 L (3.5-5.1) mmol/L Chloride 111 H (98-107) mmol/L C-Reactive Protein 6.2 H (<1.0) mg/dL Microbiology - Last 24 Hours (Table) 05/18/24 14:10 Blood Culture - Preliminary Blood Assessment and Plan Assessment: This is a 68-year-old gentleman with history of the mental delay, psychiatric disorder who presents to the emergency department from [facility] for altered mental status. It seems that he had influenza 3 weeks ago and since then he has been declining not interactive verbalizing not engaging with conversation or activities. CT of the head shows concern for right VU territory/frontal CVA Acute to subacute stroke over the right VU/frontal territory that seems suspicious on the CT Altered mental status due to above as well as metabolic encephalopathy. Patient has been afebrile so far and wbc is midly elevated. Underlying developmentally delay Underlying psychiatric disease issue Plan: Pending MRI Brain, 2D echo. Patient is on ASA 300mg suppository. Continue Lipitor 40mg qhs. Continue neuro checks Cardiac monitoring PT, OT, PUMP AND STILL OPERATOR are consulted Patient is on Keppra 500mg bid (home medication). Pending routine EEG. Consulted I.D. team for leukocytosis. Patient is afebrile. I spoke with Dr. Crowley, and we agreed if MRI Brain is negative for acute or subacute process then proceed with lumbar puncture. Will defer the rest of medical management to primary team. For DVT Prophylaxis: On Subq heparin. Time with Patient: Less than 30
--- NOTE | 2024-05-21 15:09 | P.PN ---
Subjective Progress Note Date: 05/21/24 Principal diagnosis: Reason for follow-up is leukocytosis and question of infection Patient is a 68-year-old male with a past medical history significant for CVA TIA hyperlipidemia, developmental delay and psychiatric disorder group home resident has been sent to the hospital for evaluation of mental status changes, patient did have a CT of the brain concerning for right VU territory CVA patient did have a mild elevated white count and recent history of influenza with concern for infection prompting this consultation. On today's evaluation that is 05/21/2024, patient has been afebrile, patient is breathing comfortably and is currently on room air, patient is awake but not verbal did not answer any question no vomiting diarrhea any changes reported by the nursing staff. Patient white count is down to 12,000, creatinine 0.78 Pro-Deonte 0.13 CRP 6.2 blood and urine culture have been negative so far Objective - Vital Signs Vital signs: Vital Signs Temp 97.9 F 05/20/24 20:00 Pulse 105 H 05/21/24 12:00 Resp 16 05/21/24 13:02 BP 131/72 05/21/24 12:00 Pulse Ox 97 05/21/24 03:53 FiO2 Intake & Output 05/20/24 05/21/24 05/21/24 18:59 06:59 18:59 Output Total 400 Balance -400 Weight 67.8 kg 68.5 kg Output: Urine 400 Other: Voiding Method External Catheter External Catheter External Catheter # Voids 1 1 # Bowel Movements 1 - Exam GENERAL DESCRIPTION: An elderly male lying in bed in no distress RESPIRATORY SYSTEM: Unlabored breathing , decreased breath sounds at bases HEART: S1 S2 regular rate and rhythm , ABDOMEN: Soft , no tenderness EXTREMITIES: No edema feet - Labs CBC & Chem 7: 05/21/24 04:17 05/21/24 04:17 Labs: Abnormal Lab Results - Last 24 Hours (Table) 05/19/24 05/21/24 05/21/24 Range/Units 07:40 04:17 04:17 WBC 12.0 H (3.8-10.6) k/uL MCHC 30.9 L (31.0-37.0) g/dL Neutrophils # 9.3 H (1.3-7.7) k/uL Sodium 147 H (137-145) mmol/L Potassium 3.4 L (3.5-5.1) mmol/L Chloride 111 H (98-107) mmol/L C-Reactive Protein 6.2 H (<1.0) mg/dL Microbiology - Last 24 Hours (Table) 05/18/24 14:10 Blood Culture - Preliminary Blood Assessment and Plan (1) Leukocytosis Current Visit: Yes Status: Acute Code(s): D72.829 - ELEVATED WHITE BLOOD CELL COUNT, UNSPECIFIED SNOMED Code(s): 789300034 (2) Altered mental status Current Visit: No Status: Acute Code(s): R41.82 - ALTERED MENTAL STATUS, UNSPECIFIED SNOMED Code(s): 083875065 Plan: 1patient presented to hospital with mental status changes and there was concern for possible CVA patient did not have any high-grade fever white count is mildly elevated and apparently recently did have a influenza A infection about 3 weeks ago however the chest x-ray were reported negative for acute cardiopulmonary disease process urine is negative abdominal soft on clinical examination no evidence of any cellulitis or skin breakdown and no neck rigidity currently no obvious focus of infection 2-patient did have mild elevated CRP however did have a normal procalcitonin level and blood cultures currently pending 3-patient is currently waiting for MRI if inconclusive May benefit from LP to complete the workup for infectious process this was discussed with the neurologist on the floor Dictation was produced using [employer] dictation software. please excuse any grammatical, word or spelling errors. Time with Patient: Less than 30
--- NOTE | 2024-05-21 19:42 | P.PN ---
Progress Note - Text Progress Note Date: 05/21/24May 10: Laying in bed. Awake. Not able to speak. Left-sided paresis. Spoke to the nurse. Needs assistance with feeding. Seen by speech therapist. Moderate oral dysphagia. Chopped diet. Pending MRI. Active Medications Acetaminophen (Acetaminophen Tab 325 Mg Tab) 650 mg PO Q6H PRN PRN Reason: Pain or Fever > 100.5 Aspirin (Aspirin 300 Mg Supp) 300 mg RECTAL DAILY [facility] Last Admin: 05/21/24 08:49 Dose: 300 mg Atorvastatin Calcium (Atorvastatin 40 Mg Tab) 40 mg PO HS [facility] Last Admin: 05/20/24 20:13 Dose: Not Given Heparin Sodium (Porcine) (Heparin Sodium,Porcine 5,000 Unit/Ml 1 Ml Vial) 5,000 unit SQ Q12HR [facility] Last Admin: 05/21/24 08:49 Dose: 5,000 unit Hydralazine HCl (Hydralazine Hcl 20 Mg/Ml 1 Ml Vial) 10 mg IVP Q4HR PRN PRN Reason: Blood Pressure - High Last Admin: 05/21/24 08:58 Dose: 10 mg Sodium Chloride (Saline 0.45%) 1,000 mls @ 60 mls/hr IV .[id number] [facility] Last Admin: 05/21/24 06:27 Dose: 60 mls/hr Levetiracetam (Levetiracetam Iv 500 Mg/5 Ml Vial) 500 mg IVP Q12HR [facility] Last Admin: 05/21/24 08:49 Dose: 500 mg Multi-Ingred Cream/Lotion/Oil/Oint (Mineral Oil-White Petrolatum 120 Gm Jar) 1 applic [facility]ICAL [facility] Last Admin: 05/20/24 20:19 Dose: Not Given Pantoprazole Sodium (Pantoprazole 40 Mg/10 Ml Vial) 40 mg IVP DAILY [facility] Last Admin: 05/21/24 08:48 Dose: 40 mg Sodium Chloride (Sodium Chloride 0.9% Flush 10 Ml Syringe) 10 ml IV Q12H PRN PRN Reason: maintain patency flush On examination: VITAL SIGNS: [Afebrile, 114, 16, 127 x 74, GENERAL APPEARANCE: BMI 23, reclining bed, awake, tired. HEENT: Normal external appearance of nose and ear. Oral cavity normal EYES: Pupils equal. Conjunctiva normal. NECK: JVD not raised. Mass not palpable. RESPIRATORY: Respiratory effort normal. Lungs clear to auscultation. CARDIOVASCULAR: First and second sounds normal. No edema. ABDOMEN: Soft. Liver and spleen not palpable. No tenderness. No mass palpable. PSYCHIATRY: Not answering questions Neurological: Left arm left leg power 0/5. Not speaking. Moderate dysphagia per speech INVESTIGATIONS, reviewed in the clinical context: May 21: White count 12 hemoglobin 14.7 platelet 389 sodium 147 potassium 3.4 creatinine 0.78. Procalcitonin 0.13 LDL 140 Influenza type A, type B, RSV, SARS-CoV-2: Not detected CT angio of the head and neck: Diminutive right A1 segment CT brain: Right VU territory frontal lobe CVA. Assessment plan: -Right anterior gadoterate artery territory frontal lobe acute stroke. Aspirin. Lipitor. -Acute dysarthria. Secondary to stroke Speech therapy following -Acute moderate dysphagia from stroke Feeding with direct supervision with pured diet -Acute left paresis from stroke Complete assist PT OT -Hypernatremia from free water deficit decreased oral intake: New diagnosis Change IV fluids to lactated Ringer's at 100 cc an hour. -Leukocytosis likely from hemoconcentration. -Essential hypertension Add Lopressor 12.5 p.o. 3 times daily -Acute medical debility patient being a total assist secondary stroke PT OT Prognosis guarded. No family at bedside.
[2024-05-21] MEDS: METOPROLOL TARTRATE 12.5 MG TAB PO SCH (20:47)
[2024-05-21] MEDS: LACTATED RINGERS 1,000 ML IV SCH (20:47)
[2024-05-21] MEDS: ENOXAPARIN 40 MG/0.4 ML SYRINGE SQ SCH (20:53)
--- NOTE | 2024-05-21 22:05 | EEG ---
ELECTROENCEPHALOGRAM REPORT CLINICAL HISTORY: This is a 68-year-old gentleman with altered mental status. The video EEG is obtained to evaluate for seizure epileptiform activity. RELEVANT MEDICATION: The patient is on Keppra. EEG TYPE: This is a routine 21-channel EEG with video using the 10/20 electrode placement system. DESCRIPTION: Wakefulness and drowsiness are obtained. During the awake state, the background consists of [id number] voltage of 6 to 7 Hz activity intermixed with delta activity. There is no physiological stage 2 sleep architecture. There is no focal slowing. There appears to be predominantly bilateral frontal artifact that is sharply controlled activity, but mostly to over the left frontal. Interictal and ictal are none. ACTIVATION PROCEDURE: Photic stimulation did not evoke posterior driving response. There is no abnormality during the photic stimulation. Hyperventilation is not performed. CLINICAL INTERPRETATION: This is an abnormal routine EEG during awake and drowsy state. The background slowing is suggestive of moderate encephalopathy. There is no focal slowing, epileptiform discharge, or seizure on the EEG. A lack of epileptiform discharges, does not rule out underlying epilepsy. Clinical correlation is recommended. MMODL / IJN: [id number] / MTDD
[2024-05-22 06:45] LABS: Basophils # (A) 0.1 k/uL (0-0.2); Basophils % (A) 1 %; Eosinophils # (A) 0.5 k/uL (0-0.7); Eosinophils % (A) 4 %; HCT 45.2 % (39.0-53.0); HGB 13.7 gm/dL (13.0-17.5); Hypochromasia Slight; Lymphocytes # (A) 1.6 k/uL (1.0-4.8); Lymphocytes % (A) 13 %; MCHC 30.4 g/dL (31.0-37.0); Mean Platelet Volume 9.2; Monocytes # (A) 0.7 k/uL (0-1.0); Monocytes % (A) 6 %; Neutrophils # (A) 9.1 k/uL (1.3-7.7); Neutrophils % (A) 76 %; Platelet Count 356 k/uL (150-450); RBC 5.07 m/uL (4.30-5.90); RDW 14.9 % (11.5-15.5); WBC 11.9 k/uL (3.8-10.6)
[2024-05-22 07:08] LABS: African American GFR (CKD) >90 (>60 ml/min/1.73 sqM); Anion Gap 9 mmol/L; Blood Urea Nitrogen 17 mg/dL (9-20); Calcium 8.7 mg/dL (8.4-10.2); Carbon Dioxide 28 mmol/L (22-30); Chloride 112 mmol/L (98-107); Glucose 80 mg/dL (74-99); Non-African American GFR(CKD) >90 (>60 ml/min/1.73 sqM); Potassium 3.1 mmol/L (3.5-5.1); Sodium 149 mmol/L (137-145)
--- NOTE | 2024-05-22 10:58 | MR ---
EXAMINATION TYPE: MR brain wo con DATE OF EXAM: 05/22/2024 COMPARISON: Prior MRI brain October 18, 2023 HISTORY: Abnormal CT, stroke. TECHNIQUE: Multiplanar, multisequence imaging of the brain and brainstem is performed without IV cont rast. FINDINGS: Diffusion weighted images demonstrate areas of increased signal on diffusion-weighted images in the s ubcortical region of the posterior inferior left frontal lobe on axial image 144 corresponding to are a of diminished signal on ADC mapping and T2 hyperintensity consistent with acute infarct. There is a second larger area of acute infarct involving the medial aspect of the right frontal lobe with corti dhara extension. There are additional scattered foci of acute infarct in the right occipital lobe axial image 208 series 303 and more prominent in the left parietal lobe subcortical region image 200. Moderate ventricular and sulcal prominence is redemonstrated. There are multifocal and confluent area s of T2 hyperintensity in the periventricular white matter redemonstrated. Old right temporal lobe in farct redemonstrated. Midline structures redemonstrate postsurgical change to the posterior inferior aspect of the posterio r fossa with focal resection cavity extending into the right cerebellum. The craniocervical junction appears within normal limits. Normal vascular flow voids are present. The globes are intact bilatera lly. Large mucous retention cysts and/or polyps in the bilateral frontal sinuses are redemonstrated. IMPRESSION: 1. There are multifocal acute infarcts seen bilaterally with largest area of involvement in the media l aspect of the right frontal lobe. 2. There is moderate diffuse cerebral atrophy and chronic small vessel ischemic change redemonstrated . There is postsurgical change to the posterior aspect of the posterior fossa again seen. Old right t emporal lobe infarct redemonstrated. [facility], , 05/22/2024 10:55 AM
--- NOTE | 2024-05-22 11:21 | CA ---
Transthoracic Echo Report Name: Nikhil Zhou Age: 68 Gender: M : 1955 Exam Date: 05/21/2024 14:45 Exam Location: [facility] Ht (in): 68 Wt (lb): 149 Ordering Physician: Randy Chaudhari MD Attending/Referring Phys: [employer] Supervisor Ximena Romo RDCS Procedure CPT: Indications: CVA Cardiac Hx: Patietnt laying on right side, very challenging echo Technical Quality: Very technically difficult study Contrast 1: Definity Total Dose (mL): 5 Contrast 2: Total Dose (mL): MEASUREMENTS (Male / Female) Normal Values 2D ECHO LA Volume 21.0 cm??? 18 - 58 / 22 - 52 cm??? LA Volume Index 11.7 cm???/m??? 16 - 28 cm???/m??? FINDINGS Left Ventricle Left ventricular ejection fraction is estimated at 55 %. Left ventricular cavity size normal. Normal left ventricular systolic function. Apical, apical inferior hypokinesis. Right Ventricle Right ventricle not well visualized. Unable to estimate the right ventricular systolic pressure. Right Atrium Right atrium not well visualized. Left Atrium Normal left atrial size. Mitral Valve Structurally normal mitral valve. No mitral stenosis, regurgitation or prolapse. Aortic Valve Aortic valve not well visualized. No aortic valve stenosis or regurgitation. Tricuspid Valve Tricuspid valve not well visualized. No tricuspid stenosis, regurgitation or prolapse. Pulmonic Valve Pulmonic valve not well visualized. Pericardium No pericardial effusion. Aorta Aortic root and proximal ascending aorta not well visualized. CONCLUSIONS Left ventricular ejection fraction 55% Apical, apical inferior hypokinesis may be consistent with Takotsubo's No mitral regurgitation No pericardial effusion Previewed by: Dr. Juan José Danielson DO (Electronically Signed) Final Date: 22 May 2024 11:20
[2024-05-22] MEDS: CLOPIDOGREL 75 MG TAB PO SCH (12:18)
[2024-05-22] MEDS: ASPIRIN 81 MG PO SCH (12:18)
--- NOTE | 2024-05-22 12:53 | US ---
EXAMINATION TYPE: US venous doppler duplex LE DATE OF EXAM: 05/22/2024 12:29 PM COMPARISON: Prior bilateral venous ultrasound 2016 CLINICAL INDICATION: Male, 68 years old with history of cva bilateral. r/o dvt; Patient unable to ta lk, had stroke TECHNIQUE: The lower extremity deep venous system is examined utilizing real time linear array sonog felipe with graded compression, color doppler sonography, and spectral doppler. SIDE PERFORMED: Bilateral FINDINGS: VESSELS IMAGED: Common Femoral Vein Deep Femoral Vein Greater Saphenous Vein * Femoral Vein Popliteal Vein Small Saphenous Vein * Proximal Calf Veins (* superficial vessels) *Unable to do compression pictures on right popliteal vein due to leg positioning Right Leg: Negative for DVT, Color Doppler imaging shows patency of the vessels. Spectral waveforms are within normal limits. Left Leg: Negative for DVT, Color Doppler imaging shows patency of the vessels. Spectral waveforms a re within normal limits. IMPRESSION: Suboptimal study without acute DVT identified bilaterally. [facility], , 05/22/2024 12:51 PM
--- NOTE | 2024-05-22 13:21 | P.PN ---
Subjective Progress Note Date: 05/22/24 I am following up with the patient and according to the nurse he is more awake and he stated yes to her as well as he is tolerating oral feeds. Per the nurse he is not verbalizing much as stated earlier and only stated yes and she has not noticed that he is moving any extremities. Objective - Vital Signs Vital signs: Vital Signs Temp 97.0 F L 05/22/24 04:00 Pulse 80 05/22/24 12:00 Resp 16 05/22/24 12:00 BP 164/94 05/22/24 12:00 Pulse Ox 97 05/22/24 04:00 FiO2 Intake & Output 05/21/24 05/22/24 05/22/24 18:59 06:59 18:59 Output Total 350 700 Balance -350 -700 Weight 68.5 kg Output: Urine 350 700 Other: Voiding Method External Catheter External Catheter External Catheter - Exam GENERAL: The patient is lying in bed and does not appear in acute distress. HENT: Supple neck. NEUROLOGICAL: Very limited. Patient is moderately drowsy and does open eyes more. He is not verbalizing or following commands No facial weakness from limitation. Neuro the strength is very limited in assessment. Tone is somewhat increased in right upper more than left. No spontaneous movement. Some of the work of the workup during this hospital visit consisted of: Patient is afebrile so far Sodium is going up and current is 147. White Blood cell is 12.0K Plasma lactic acid vein is 2.5 repeat is 1.5 Sodium, calcium, magnesium are within normal limits Ammonia is less than 9 CRP is 2.6 Lipid panel: TG 122, Cholestrol 209, LDL 140, HDL 44. Influenza A/B/RSV/SARS COVID [address] of the head is reported as right VU territory/frontal lobe CVA. Further evaluation with MRI may be of benefit. Extensive consolation mineralization that is seen on 10/15/2023. Postsurgical changes in the posterior skull and cerebellum. I personally reviewed the CT head and I do not see what reading radiologist marked and subacute stroke due to acute or artifact. CT angiography of the head and neck is reported as no evidence of dissection of cervical internal carotid artery or vertebral artery. No evidence of significant stenosis at the carotid bifurcation. No evidence of intracranial high-grade stenosis or intracranial aneurysm. Diminutive right A1 segment. MRI of the brain is reported as there is multifocal acute infarct is seen bilateral with the largest area of involvement in the medial aspect of the right frontal lobe. There is moderate diffuse cerebral atrophy and chronic small vessel ischemic change redemonstrated. There is postsurgical changes in the posterior aspect of posterior fossa again. Old right temporal lobe infarct redemonstrated. - Labs CBC & Chem 7: 05/22/24 05:50 05/22/24 05:50 Labs: Abnormal Lab Results - Last 24 Hours (Table) 05/22/24 05/22/24 Range/Units 05:50 05:50 WBC 11.9 H (3.8-10.6) k/uL MCHC 30.4 L (31.0-37.0) g/dL Neutrophils # 9.1 H (1.3-7.7) k/uL Sodium 149 H (137-145) mmol/L Potassium 3.1 L (3.5-5.1) mmol/L Chloride 112 H (98-107) mmol/L Microbiology - Last 24 Hours (Table) 05/18/24 14:10 Blood Culture - Preliminary Blood Assessment and Plan Assessment: This is a 68-year-old gentleman with history of the mental delay, psychiatric disorder who presents to the emergency department from [facility] for altered mental status. It seems that he had influenza 3 weeks ago and since then he has been declining not interactive verbalizing not engaging with conversation or activities. CT of the head shows concern for right VU territory/frontal CVA Acute to subacute stroke and on initial CAT scan it seems over the right VU/frontal territory but on MRI it shows bilateral hemispheric with the largest being over the right frontal. This seems more cardioembolic in nature. CT angiography of the head and neck is unremarkable for any significant stenosis or occlusion. Altered mental status due to above as well as metabolic encephalopathy. Patient has been afebrile so far and wbc is midly elevated. Underlying developmentally delay Underlying psychiatric disease issue Plan: Patient is on ASA 300mg suppository and I changed it to aspirin 81 mg p.o. orally since per the nurse he is tolerating the p.o. medication. I also added Plavix 75 mg daily. Pending 2D echo report. Negative then we will proceed with a transesophageal echocardiogram Of unknown source of stroke will consult cardiology for 30-day event monitor as well as the transesophageal echocardiogram I ordered venous duplex of bilateral lower extremity to rule out any DVTs. Continue Lipitor 40mg qhs. Continue neuro checks Cardiac monitoring. PT, OT, EARTH SCIENCES PROFESSOR are consulted Patient is on Keppra 500mg bid (home medication). Consulted I.D. team for leukocytosis. Patient is afebrile. No need to pursue lumbar puncture since the patient has bilateral hemispheric stroke and this is not meningitis or encephalitis. So far has been afebrile. Will defer the rest of medical management to primary team. For DVT Prophylaxis: On Subq heparin. Plan discussed with the patient nurse. Time with Patient: Less than 30
--- NOTE | 2024-05-22 14:16 | P.PN ---
Subjective Progress Note Date: 05/22/24 Principal diagnosis: Reason for follow-up is leukocytosis and question of infection Patient is a 68-year-old male with a past medical history significant for CVA TIA hyperlipidemia, developmental delay and psychiatric disorder retirement resident has been sent to the hospital for evaluation of mental status changes, patient did have a CT of the brain concerning for right VU territory CVA patient did have a mild elevated white count and recent history of influenza with concern for infection prompting this consultation. On today's evaluation that is 05/22/2024, Patient is afebrile this morning patient is on room air and breathing comfortably slightly more awake as reported by the nursing staff however the patient was not able to put any history no vomiting diarrhea and the changes reported patient white count is down to 11.9 creatinine 0.76 cultures has been negative Objective - Vital Signs Vital signs: Vital Signs Temp 97.0 F L 05/22/24 04:00 Pulse 80 05/22/24 12:00 Resp 16 05/22/24 12:00 BP 164/94 05/22/24 12:00 Pulse Ox 97 05/22/24 04:00 FiO2 Intake & Output 05/21/24 05/22/24 05/22/24 18:59 06:59 18:59 Output Total 350 700 Balance -350 -700 Weight 68.5 kg Output: Urine 350 700 Other: Voiding Method External Catheter External Catheter External Catheter - Exam GENERAL DESCRIPTION: An elderly male lying in bed in no distress RESPIRATORY SYSTEM: Unlabored breathing , decreased breath sounds at bases HEART: S1 S2 regular rate and rhythm , ABDOMEN: Soft , no tenderness EXTREMITIES: No edema feet - Labs CBC & Chem 7: 05/22/24 05:50 05/22/24 05:50 Labs: Abnormal Lab Results - Last 24 Hours (Table) 05/22/24 05/22/24 Range/Units 05:50 05:50 WBC 11.9 H (3.8-10.6) k/uL MCHC 30.4 L (31.0-37.0) g/dL Neutrophils # 9.1 H (1.3-7.7) k/uL Sodium 149 H (137-145) mmol/L Potassium 3.1 L (3.5-5.1) mmol/L Chloride 112 H (98-107) mmol/L Microbiology - Last 24 Hours (Table) 05/18/24 14:10 Blood Culture - Preliminary Blood Assessment and Plan (1) Leukocytosis Current Visit: Yes Status: Acute Code(s): D72.829 - ELEVATED WHITE BLOOD CELL COUNT, UNSPECIFIED SNOMED Code(s): 482841653 (2) Altered mental status Current Visit: No Status: Acute Code(s): R41.82 - ALTERED MENTAL STATUS, UNSPECIFIED SNOMED Code(s): 252258311 Plan: 1patient presented to hospital with mental status changes and there was concern for possible CVA patient did not have any high-grade fever white count is mildly elevated and apparently recently did have a influenza A infection about 3 weeks ago however the chest x-ray were reported negative for acute cardiopulmonary disease process urine is negative abdominal soft on clinical examination no evidence of any cellulitis or skin breakdown and no neck rigidity currently no obvious focus of infection 2-patient did have mild elevated CRP however did have a normal procalcitonin level and blood cultures currently pending 3-patient MRI is mostly suggestive of acute infarct could be responsible for his current mental status changes with low clinical suspicious for infectious etiology hence we will hold on LP at this point Dictation was produced using [employer] dictation software. please excuse any grammatical, word or spelling errors. Time with Patient: Less than 30
--- NOTE | 2024-05-22 16:18 | P.PN ---
Progress Note - Text Progress Note Date: 05/22/24 May 21: Laying in bed. Awake. Not able to speak. Left-sided paresis. Spoke to the nurse. Needs assistance with feeding. Seen by speech therapist. Moderate oral dysphagia. Chopped diet. Pending MRI. May 22: Laying in bed. Awake. Not really following commands. Minimal oral intake. Wants to 1 assist. MRI of the brain shows multifocal acute infarcts bilaterally. Largest area involving the medial aspect of the right frontal lobe. Moderate diffuse cerebral atrophy. ASHWIN ordered. Nearly remains flaccid on the left side. Some weakness on the right side 2. Getting LR.. Ordered NG tube for medications and feeding. Active Medications Acetaminophen (Acetaminophen Tab 325 Mg Tab) 650 mg PO Q6H PRN PRN Reason: Pain or Fever > 100.5 Aspirin (Aspirin 81 Mg) 81 mg PO DAILY [facility] Last Admin: 05/22/24 12:18 Dose: 81 mg Atorvastatin Calcium (Atorvastatin 40 Mg Tab) 40 mg PO HS [facility] Last Admin: 05/21/24 20:47 Dose: 40 mg Clopidogrel Bisulfate (Clopidogrel 75 Mg Tab) 75 mg PO DAILY [facility] Last Admin: 05/22/24 12:18 Dose: 75 mg Enoxaparin Sodium (Enoxaparin 40 Mg/0.4 Ml Syringe) 40 mg SQ DAILY [facility] Last Admin: 05/22/24 09:10 Dose: 40 mg Hydralazine HCl (Hydralazine Hcl 20 Mg/Ml 1 Ml Vial) 10 mg IVP Q4HR PRN PRN Reason: Blood Pressure - High Last Admin: 05/21/24 08:58 Dose: 10 mg Lactated Ringer's (Lactated Ringers) 1,000 mls @ 125 mls/hr IV .Q8H [facility] Last Admin: 05/22/24 16:01 Dose: 125 mls/hr Levetiracetam (Levetiracetam Iv 500 Mg/5 Ml Vial) 500 mg IVP Q12HR [facility] Last Admin: 05/22/24 09:09 Dose: 500 mg Metoprolol Tartrate (Metoprolol Tartrate 12.5 Mg Tab) 12.5 mg PO TID [facility] Last Admin: 05/22/24 16:00 Dose: 12.5 mg Multi-Ingred Cream/Lotion/Oil/Oint (Mineral Oil-White Petrolatum 120 Gm Jar) 1 applic [facility] Last Admin: 05/21/24 20:47 Dose: Not Given Pantoprazole Sodium (Pantoprazole 40 Mg/10 Ml Vial) 40 mg IVP DAILY [facility] Last Admin: 05/22/24 09:09 Dose: 40 mg Sodium Chloride (Sodium Chloride 0.9% Flush 10 Ml Syringe) 10 ml IV Q12H PRN PRN Reason: maintain patency flush On examination: VITAL SIGNS: , 84, 16, 159 x 89, GENERAL APPEARANCE: BMI 23, reclining bed, awake, not following commands HEENT: Normal external appearance of nose and ear. Oral cavity normal EYES: Pupils equal. Conjunctiva normal. NECK: JVD not raised. Mass not palpable. RESPIRATORY: Respiratory effort normal. Lungs clear to auscultation. CARDIOVASCULAR: First and second sounds normal. No edema. ABDOMEN: Soft. Liver and spleen not palpable. No tenderness. No mass palpable. PSYCHIATRY: Not following commands Neurological: Left arm left leg power 0/5. Not speaking. Moderate dysphagia per speech. Not following commands INVESTIGATIONS, reviewed in the clinical context: MRI brain: Multiple areas of acute stroke May 22: White count 11.9 hemoglobin 13.7 platelets 356 sodium 149 potassium 3.1 creatinine 0.76 May 21: White count 12 hemoglobin 14.7 platelet 389 sodium 147 potassium 3.4 creatinine 0.78. Procalcitonin 0.13 LDL 140 Influenza type A, type B, RSV, SARS-CoV-2: Not detected CT angio of the head and neck: Diminutive right A1 segment CT brain: Right VU territory frontal lobe CVA. Assessment plan: -Acute stroke: Multiple areas involved.. Likely embolic: Not improving Aspirin. Lipitor. Cardiology consulted for ASHWIN -Acute dysarthria. Secondary to stroke: Patient not making any sounds or words: Not improving Speech therapy following -Acute moderate dysphagia from stroke: Minimal intake: Not improving Feeding with direct supervision with pured diet Order NG tube -Acute left paresis from stroke Complete assist PT OT -Hypernatremia from free water deficit decreased oral intake: Slow to respond Continue LR at 125 cc an hour -Leukocytosis likely from hemoconcentration. -Essential hypertension Lopressor 12.5 p.o. 3 times daily -Acute medical debility patient being a total assist secondary stroke PT OT -Legal guardian Prognosis guarded. No family at bedside.
--- NOTE | 2024-05-23 10:32 | P.CRDCN ---
History of Present Illness Consult date: 05/23/24 Reason for Consult (text): Bilateral hemispheric CVA rule out embolic with ASHWIN and event monitor. History of present illness: This is a 68-year-old male with no previous cardiac history. 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 We have been asked to evaluate the patient for bilateral hemispheric CVA rule out embolic stroke with ASHWIN and event monitor. Patient presented to the emergency center on 05/18 due to altered mental status from [facility]. Patient is unable to provide any information as he is nonverbal. Neurology is following for acute or subacute stroke on initial CT scan and MRI showing bilateral hemispheric with largest being over the right frontal lobe. Blood pressure 171/105, heart rate 105, pulse ox 95% on room air. -EKG: Sinus tachycardia. -Chest x-ray: No acute process -Laboratory studies: WBC 11.9. Potassium 3.1, creatinine 0.76. Triglycerides 122, cholesterol 209, LDL 140. Procalcitonin 0.13. Cepheid viral panel not detected. -Home cardiac medications: None Review Of Systems: At the time of my exam: Unable to obtain from the patient Physical examination: Gen: This is a 68-year-old male in no acute distress VS: reviewed HEENT: Head is atraumatic, normocephalic. Pupils equal, round. Sclerae is anicteric. NECK: Supple. No JVD. LUNGS: Clear to auscultation. No wheezes or rhonchi. No intercostal retractions. HEART: Regular rate and rhythm. No murmur. ABDOMEN: Soft No tenderness. EXTREMITIES: No pedal edema. No calf tenderness. NEUROLOGICAL: Patient is awake, alert. Assessment: Acute ischemic CVA Leukocytosis followed by ID Hypertension History of brain tumor removed at age 12 Significant developmentally delayed Plan: Patient has been started on aspirin, a atorvastatin and Plavix by neurology Patient also started on Lopressor 12.5 mg 3 times daily by attending Start losartan 25 mg daily Schedule patient for ASHWIN tomorrow with Dr. Starkey N.p.o. after midnight Further recommendations to follow based upon clinical course Thank you kindly for this consultation. Nurse practitioner note has been reviewed, I agree with documented findings and plan of care. Patient was seen and examined. Past Medical History Past Medical History: CVA/TIA, Hyperlipidemia, Thyroid Disorder Additional Past Medical History / Comment(s): past medication data indicates that the pt may have hyperlipidemia and hypo thyroid. History of Any Multi-Drug Resistant Organisms: None Reported Additional Past Surgical History / Comment(s): brain tumor Past Anesthesia/Blood Transfusion Reactions: No Reported Reaction Past Psychological History: No Psychological Hx Reported Smoking Status: Never smoker Past Alcohol Use History: None Reported Past Drug Use History: None Reported - Past Family History Father Family Medical History: Unable to Obtain Mother Family Medical History: Unable to Obtain Medications and Allergies Home Medications Medication Instructions Recorded Confirmed Type 0.9 % Sodium Chloride [Sodium 10 ml IV Q12H PRN 05/18/24 05/18/24 History Chloride Flush] Acetaminophen [Tylenol] 650 mg PO Q6H PRN 05/18/24 05/18/24 History Lanolin/Mineral Oil [Eucerin 1 applic TOPICAL HS 05/18/24 05/18/24 History Original Lotion] levETIRAcetam 500 mg PO BID 05/18/24 05/18/24 History Allergies Allergy/AdvReac Type Severity Reaction Status Date / Time Penicillins Allergy Severe Anaphylaxis Verified 05/18/24 15:14 Physical Exam Vitals: Vital Signs Temp Pulse Resp BP 05/23/24 04:00 98.3 F 98 14 164/94 05/23/24 00:00 88 14 157/89 05/22/24 19:32 84 14 161/91 05/22/24 16:00 84 16 159/89 05/22/24 12:00 80 16 164/94 Intake and Output 05/22/24 05/23/24 05/23/24 22:59 06:59 14:59 Output Total 2200 Balance -2200 Output: Urine 2200 Other: Voiding Method External Catheter External Catheter Weight 69.5 kg Results 05/22/24 05:50 05/22/24 05:50 Current Medications Generic Name Dose Route Start Last Admin Trade Name Freq PRN Reason Stop Dose Admin Acetaminophen 650 mg 05/18/24 15:57 Acetaminophen Tab 325 Mg Tab PO Q6H PRN Pain or Fever > 100.5 Aspirin 81 mg 05/22/24 11:30 05/22/24 12:18 Aspirin 81 Mg PO 81 mg DAILY JOEL Administration Atorvastatin Calcium 40 mg 05/19/24 21:00 05/22/24 20:46 Atorvastatin 40 Mg Tab PO 40 mg HS JOEL Administration Clopidogrel Bisulfate 75 mg 05/22/24 11:15 05/22/24 12:18 Clopidogrel 75 Mg Tab PO 75 mg DAILY [facility] Administration Enoxaparin Sodium 40 mg 05/21/24 20:00 05/22/24 09:10 Enoxaparin 40 Mg/0.4 Ml Syringe SQ 40 mg DAILY [facility] Administration Hydralazine HCl 10 mg 05/19/24 14:28 05/21/24 08:58 Hydralazine Hcl 20 Mg/Ml 1 Ml Vial IVP 10 mg Q4HR PRN Administration Blood Pressure - High Lactated Ringer's 1,000 mls @ 125 mls/hr 05/21/24 19:45 05/23/24 04:11 Lactated Ringers IV 125 mls/hr .Q8H JO[facility] Administration Levetiracetam 500 mg 05/18/24 21:00 05/22/24 20:46 Levetiracetam Iv 500 Mg/5 Ml Vial IVP 500 mg Q12HR [facility] Administration Metoprolol Tartrate 12.5 mg 05/21/24 22:00 05/22/24 20:46 Metoprolol Tartrate 12.5 Mg Tab PO 12.5 mg TID [facility] Administration Multi-Ingred Cream/Lotion/Oil/Oint 1 applic 05/18/24 21:00 05/22/24 20:47 Mineral Oil-White Petrolatum 120 Gm Jar TOPICAL 1 applic HS [facility] Administration Pantoprazole Sodium 40 mg 05/19/24 09:00 05/22/24 09:09 Pantoprazole 40 Mg/10 Ml Vial IVP 40 mg DAILY [facility] Administration Sodium Chloride 10 ml 05/18/24 15:57 Sodium Chloride 0.9% Flush 10 Ml Syringe IV Q12H PRN maintain patency flush Intake and Output 05/22/24 05/23/24 05/23/24 22:59 06:59 14:59 Output Total 2200 Balance -2200 Output: Urine 2200 Other: Voiding Method External Catheter External Catheter Weight 69.5 kg 05/22/24 05:50 05/22/24 05:50
[2024-05-23] MEDS ORDERED: fentaNYL (PF) 50 MCG/ML 2 ML AMP IVP PRN (10:33)
[2024-05-23] MEDS ORDERED: MIDAZOLAM 2 MG/2 ML VIAL IV PRN (10:33)
[2024-05-23] MEDS ORDERED: BENZOCAINE SPRAY 1 CAN TOPICAL PRN (10:33)
[2024-05-23] MEDS: LOSARTAN 25 MG TAB PO SCH (12:05)
--- NOTE | 2024-05-23 13:47 | P.PN ---
Subjective Progress Note Date: 05/23/24 I am following-up with patient and per the nurse he is about the same. He is schedule for ASHWIN tomorrow. Objective - Vital Signs Vital signs: Vital Signs Temp 98.3 F 05/23/24 04:00 Pulse 100 05/23/24 12:00 Resp 16 05/23/24 12:00 BP 177/94 05/23/24 12:00 Pulse Ox 96 05/23/24 12:00 FiO2 Intake & Output 05/22/24 05/23/24 05/23/24 18:59 06:59 18:59 Output Total 1100 2200 400 Balance -1100 -2200 -400 Weight 69.5 kg Output: Urine 1100 2200 400 Other: Voiding Method External Catheter External Catheter External Catheter - Exam GENERAL: The patient is lying in bed and does not appear in acute distress. HENT: Supple neck. NEUROLOGICAL: Very limited. Patient is moderately drowsy and does open eyes more. He is not verbalizing or following commands No facial weakness from limitation. Neuro the strength is very limited in assessment. Tone is somewhat increased in right upper more than left. No spontaneous movement. Some of the work of the workup during this hospital visit consisted of: Patient is afebrile so far Sodium is going up and current is 147. White Blood cell is 12.0K Plasma lactic acid vein is 2.5 repeat is 1.5 Sodium, calcium, magnesium are within normal limits Ammonia is less than 9 CRP is 2.6 Lipid panel: TG 122, Cholestrol 209, LDL 140, HDL 44. Influenza A/B/RSV/SARS COVID [address] of the head is reported as right VU territory/frontal lobe CVA. Further evaluation with MRI may be of benefit. Extensive consolation mineralization that is seen on 10/15/2023. Postsurgical changes in the posterior skull and cerebellum. I personally reviewed the CT head and I do not see what reading radiologist marked and subacute stroke due to acute or artifact. CT angiography of the head and neck is reported as no evidence of dissection of cervical internal carotid artery or vertebral artery. No evidence of significant stenosis at the carotid bifurcation. No evidence of intracranial high-grade stenosis or intracranial aneurysm. Diminutive right A1 segment. MRI of the brain is reported as there is multifocal acute infarct is seen bilateral with the largest area of involvement in the medial aspect of the right frontal lobe. There is moderate diffuse cerebral atrophy and chronic small vessel ischemic change redemonstrated. There is postsurgical changes in the posterior aspect of posterior fossa again. Old right temporal lobe infarct redemonstrated. 2D echo: EF %. Apical, inferior hypokinesis may be consistent with Takotsubo's. Venous duplex: Suboptimal study without acute DVT identified bilaterally. - Labs CBC & Chem 7: 05/22/24 05:50 05/22/24 05:50 Assessment and Plan Assessment: This is a 68-year-old gentleman with history of the mental delay, psychiatric disorder who presents to the emergency department from [facility] for altered mental status. It seems that he had influenza 3 weeks ago and since then he has been declining not interactive verbalizing not engaging with conversation or activities. CT of the head shows concern for right VU territory/frontal CVA Acute to subacute stroke and on initial CAT scan it seems over the right VU/frontal territory but on MRI it shows bilateral hemispheric with the largest being over the right frontal. This seems more cardioembolic in nature. CT angiography of the head and neck is unremarkable for any significant stenosis or occlusion. Apical, inferior hypokinesis may be consistent with Takotsubo's on 2D echo Altered mental status due to above as well as metabolic encephalopathy. Patient has been afebrile so far and wbc is midly elevated. Underlying developmentally delay Underlying psychiatric disease issue Plan: Continue Aspirin 81 mg p.o. orally and Plavix 75 mg daily. He is scheduled for ASHWIN tomorrow. Cardiology is on board. Continue Lipitor 40mg qhs. Continue neuro checks Cardiac monitoring. PT, OT, MOTION DESIGNER are consulted Patient is on Keppra 500mg bid (home medication). Consulted I.D. team for leukocytosis. Patient is afebrile. No need to pursue lumbar puncture since the patient has bilateral hemispheric stroke and this is not meningitis or encephalitis. So far has been afebrile. Will defer the rest of medical management to primary team. For DVT Prophylaxis: On Subq heparin. Plan discussed with the patient nurse. Time with Patient: Less than 30
--- NOTE | 2024-05-23 17:01 | P.PN ---
Progress Note - Text Progress Note Date: 05/23/24 May 21: Laying in bed. Awake. Not able to speak. Left-sided paresis. Spoke to the nurse. Needs assistance with feeding. Seen by speech therapist. Moderate oral dysphagia. Chopped diet. Pending MRI. May 22: Laying in bed. Awake. Not really following commands. Minimal oral intake. Wants to 1 assist. MRI of the brain shows multifocal acute infarcts bilaterally. Largest area involving the medial aspect of the right frontal lobe. Moderate diffuse cerebral atrophy. ASHWIN ordered. Nearly remains flaccid on the left side. Some weakness on the right side 2. Getting LR.. Ordered NG tube for medications and feeding. May 23: Reclining in bed. Awake. Not speaking. Remains flaccid on the left side. Spoke to the nurse aide. Eating small amounts. Scheduled for ASHWIN tomorrow. Blood pressure still running on the high side. Increase Lopressor to 50 twice daily. Change Keppra to p.o. Did speak to nurse Louisa. Informed legal guardian office to get in touch with me. My pager number was given. Active Medications Acetaminophen (Acetaminophen Tab 325 Mg Tab) 650 mg PO Q6H PRN PRN Reason: Pain or Fever > 100.5 Aspirin (Aspirin 81 Mg) 81 mg PO DAILY [facility] Last Admin: 05/23/24 08:54 Dose: 81 mg Atorvastatin Calcium (Atorvastatin 40 Mg Tab) 40 mg PO HS [facility] Last Admin: 05/22/24 20:46 Dose: 40 mg Benzocaine (Benzocaine Dilley 1 Can) 1 spray TOPICAL TID PRN PRN Reason: Skin Irritation Stop: 05/23/24 23:00 Clopidogrel Bisulfate (Clopidogrel 75 Mg Tab) 75 mg PO DAILY [facility] Last Admin: 05/23/24 08:55 Dose: 75 mg Enoxaparin Sodium (Enoxaparin 40 Mg/0.4 Ml Syringe) 40 mg SQ DAILY [facility] Last Admin: 05/23/24 08:54 Dose: 40 mg Fentanyl Citrate (Fentanyl (Pf) 50 Mcg/Ml 2 Ml Amp) 50 mcg IVP ONCE PRN PRN Reason: Pre-Op Stop: 05/24/24 04:33 Hydralazine HCl (Hydralazine Hcl 20 Mg/Ml 1 Ml Vial) 10 mg IVP Q4HR PRN PRN Reason: Blood Pressure - High Last Admin: 05/23/24 09:06 Dose: 10 mg Lactated Ringer's (Lactated Ringers) 1,000 mls @ 125 mls/hr IV .Q8H [facility] Last Admin: 05/23/24 04:11 Dose: 125 mls/hr Levetiracetam (Levetiracetam 500 Mg Tab) 500 mg PO Q12HR [facility] Losartan Potassium (Losartan 25 Mg Tab) 25 mg PO DAILY [facility] Last Admin: 05/23/24 12:05 Dose: 25 mg Metoprolol Tartrate (Metoprolol Tartrate 50 Mg Tab) 50 mg PO BID [facility] Metoprolol Tartrate (Metoprolol Tartrate 12.5 Mg Tab) 12.5 mg PO ONCE STA Stop: 05/23/24 16:59 Midazolam HCl (Midazolam 2 Mg/2 Ml Vial) 1 mg IV ONCE PRN PRN Reason: Pre-Op Stop: 05/24/24 04:33 Multi-Ingred Cream/Lotion/Oil/Oint (Mineral Oil-White Petrolatum 120 Gm Jar) 1 applic TOPICAL HS [facility] Last Admin: 05/22/24 20:47 Dose: 1 applic Sodium Chloride (Sodium Chloride 0.9% Flush 10 Ml Syringe) 10 ml IV Q12H PRN PRN Reason: maintain patency flush On examination: VITAL SIGNS: , 99, 16, 1 7797, 96% room air GENERAL APPEARANCE: BMI 23, reclining bed, awake, not following commands HEENT: Normal external appearance of nose and ear. Oral cavity normal EYES: Pupils equal. Conjunctiva normal. NECK: JVD not raised. Mass not palpable. RESPIRATORY: Respiratory effort normal. Lungs clear to auscultation. CARDIOVASCULAR: First and second sounds normal. No edema. ABDOMEN: Soft. Liver and spleen not palpable. No tenderness. No mass palpable. PSYCHIATRY: Not following commands Neurological: Left arm left leg power 0/5. Not speaking. Moderate dysphagia per speech. Not following commands INVESTIGATIONS, reviewed in the clinical context: MRI brain: Multiple areas of acute stroke May 22: White count 11.9 hemoglobin 13.7 platelets 356 sodium 149 potassium 3.1 creatinine 0.76 May 21: White count 12 hemoglobin 14.7 platelet 389 sodium 147 potassium 3.4 creatinine 0.78. Procalcitonin 0.13 LDL 140 Influenza type A, type B, RSV, SARS-CoV-2: Not detected CT angio of the head and neck: Diminutive right A1 segment CT brain: Right VU territory frontal lobe CVA. Assessment plan: -Acute stroke: Multiple areas involved.. Likely embolic: Not improving Aspirin. Lipitor. Cardiology consulted for ASHWIN: Scheduled for tomorrow -Acute dysarthria. Secondary to stroke: Patient not making any sounds or words: Not improving Speech therapy following -Acute moderate dysphagia from stroke: Minimal intake: Not improving Feeding with direct supervision with pured diet -Acute left paresis from stroke Complete assist PT OT -Hypernatremia from free water deficit decreased oral intake: Continue LR at 125 cc an hour -Leukocytosis likely from hemoconcentration. -Essential hypertension Increase Lopressor to 50 twice daily. Cozaar 25 mg a day. -Acute medical debility patient being a total assist secondary stroke PT OT -Legal guardian ASHWIN tomorrow. Legal guardian office message left to contact me.
--- NOTE | 2024-05-23 17:14 | P.PN ---
Subjective Progress Note Date: 05/23/24 Principal diagnosis: Reason for follow-up is leukocytosis and question of infection Patient is a 68-year-old male with a past medical history significant for CVA TIA hyperlipidemia, developmental delay and psychiatric disorder residential resident has been sent to the hospital for evaluation of mental status changes, patient did have a CT of the brain concerning for right VU territory CVA patient did have a mild elevated white count and recent history of influenza with concern for infection prompting this consultation. On today's evaluation that is 05/23/2024,the patient continues to be afebrile seems to be breathing comfortably currently on room air he was slightly more awake being fed by the ED to the time of evaluation diarrhea no vomiting diarrhea and the changes reported. No new lab has been repeated today Objective - Vital Signs Vital signs: Vital Signs Temp 98.3 F 05/23/24 04:00 Pulse 99 05/23/24 16:00 Resp 16 05/23/24 16:00 BP 177/87 05/23/24 16:00 Pulse Ox 96 05/23/24 12:00 FiO2 Intake & Output 05/22/24 05/23/24 05/23/24 18:59 06:59 18:59 Output Total 1100 2200 400 Balance -1100 -2200 -400 Weight 69.5 kg Output: Urine 1100 2200 400 Other: Voiding Method External Catheter External Catheter External Catheter - Exam GENERAL DESCRIPTION: An elderly male lying in bed in no distress RESPIRATORY SYSTEM: Unlabored breathing , decreased breath sounds at bases HEART: S1 S2 regular rate and rhythm , ABDOMEN: Soft , no tenderness EXTREMITIES: No edema feet - Labs CBC & Chem 7: 05/22/24 05:50 05/22/24 05:50 Assessment and Plan (1) Leukocytosis Current Visit: Yes Status: Acute Code(s): D72.829 - ELEVATED WHITE BLOOD CELL COUNT, UNSPECIFIED SNOMED Code(s): 769313782 (2) Altered mental status Current Visit: No Status: Acute Code(s): R41.82 - ALTERED MENTAL STATUS, UNSPECIFIED SNOMED Code(s): 502216767 Plan: 1patient presented to hospital with mental status changes and there was concern for possible CVA patient did not have any high-grade fever white count is mildly elevated and apparently recently did have a influenza A infection about 3 weeks ago however the chest x-ray were reported negative for acute cardiopulmonary disease process urine is negative abdominal soft on clinical examination no evidence of any cellulitis or skin breakdown and no neck rigidity currently no obvious focus of infection 2-patient did have mild elevated CRP however did have a normal procalcitonin level and blood cultures currently pending 3-patient MRI is mostly suggestive of acute infarct could be responsible for his current mental status changes, and did have a mild elevated white count but that has trended down without antibiotic therapy as we will monitor closely off antibiotic therapy no need for LP discussed with neurology Dictation was produced using [employer] dictation software. please excuse any grammatical, word or spelling errors. Time with Patient: Less than 30
[2024-05-23] MEDS: METOPROLOL TARTRATE 12.5 MG TAB PO STA (18:53)
[2024-05-23] MEDS: levETIRAcetam 500 MG TAB PO SCH (20:12)
[2024-05-23] MEDS: METOPROLOL TARTRATE 50 MG TAB PO SCH (20:12)
[2024-05-24 06:18] LABS: Glucose,Whole Blood 100 mg/dL (70-110)
[2024-05-24 07:35] LABS: African American GFR (CKD) >90 (>60 ml/min/1.73 sqM); Anion Gap 6 mmol/L; Blood Urea Nitrogen 9 mg/dL (9-20); Calcium 8.8 mg/dL (8.4-10.2); Carbon Dioxide 32 mmol/L (22-30); Chloride 116 mmol/L (98-107); Glucose 99 mg/dL (74-99); Non-African American GFR(CKD) >90 (>60 ml/min/1.73 sqM); Sodium 154 mmol/L (137-145)
[2024-05-24] MEDS: BENZOCAINE SPRAY 1 EACH MM ONE ×2 (10:05→10:08)
[2024-05-24] MEDS: IV FLUID CONTINUATION 200 ML IV ONE (10:10)
[2024-05-24] MEDS: fentaNYL (PF) 50 MCG/ML 2 ML AMP IVP ONE (10:28)
[2024-05-24] MEDS: MIDAZOLAM 2 MG/2 ML VIAL IVP ONE (10:28)
--- NOTE | 2024-05-24 11:11 | ECHOS ---
STRESS ECHOCARDIOGRAM INDICATIONS: CVA. PROCEDURE NOTE: After obtaining informed consent, transesophageal echocardiogram was attempted. The patient was given sedation and received xylocaine spray. We were unable to intubate the patient because of uncooperative patient and hence, decided to cancel the procedure. LEO / SUJEY: [id number] /
--- NOTE | 2024-05-24 13:40 | P.PN ---
Subjective Progress Note Date: 05/24/24 I am following-up with patient and he is about the same. Objective - Vital Signs Vital signs: Vital Signs Temp 98.5 F 05/24/24 10:50 Pulse 96 05/24/24 12:00 Resp 18 05/24/24 10:35 BP 167/98 05/24/24 12:00 Pulse Ox 96 05/24/24 12:00 FiO2 Intake & Output 05/23/24 05/24/24 05/24/24 18:59 06:59 18:59 Intake Total 0 Output Total 1600 800 Balance -1600 -800 Weight 70.5 kg Intake: IV 0 Output: Urine 1600 800 Other: Voiding Method External Catheter External Catheter External Catheter - Exam GENERAL: The patient is lying in bed and does not appear in acute distress. HENT: Supple neck. NEUROLOGICAL: Very limited. Patient is moderately drowsy and does open eyes more. He is not verbalizing or following commands No facial weakness from limitation. Neuro the strength is very limited in assessment. Tone is somewhat increased in right upper more than left. No spontaneous movement. Some of the work of the workup during this hospital visit consisted of: Patient is afebrile so far Sodium is going up and current is 147. White Blood cell is 12.0K Plasma lactic acid vein is 2.5 repeat is 1.5 Sodium, calcium, magnesium are within normal limits Ammonia is less than 9 CRP is 2.6 Lipid panel: TG 122, Cholestrol 209, LDL 140, HDL 44. Influenza A/B/RSV/SARS COVID [address] of the head is reported as right VU territory/frontal lobe CVA. Further evaluation with MRI may be of benefit. Extensive consolation mineralization that is seen on 10/15/2023. Postsurgical changes in the posterior skull and cerebellum. I personally reviewed the CT head and I do not see what reading radiologist marked and subacute stroke due to acute or artifact. CT angiography of the head and neck is reported as no evidence of dissection of cervical internal carotid artery or vertebral artery. No evidence of significant stenosis at the carotid bifurcation. No evidence of intracranial high-grade stenosis or intracranial aneurysm. Diminutive right A1 segment. MRI of the brain is reported as there is multifocal acute infarct is seen bilateral with the largest area of involvement in the medial aspect of the right frontal lobe. There is moderate diffuse cerebral atrophy and chronic small vessel ischemic change redemonstrated. There is postsurgical changes in the posterior aspect of posterior fossa again. Old right temporal lobe infarct redemonstrated. 2D echo: EF %. Apical, inferior hypokinesis may be consistent with Takotsubo's. Venous duplex: Suboptimal study without acute DVT identified bilaterally. - Labs CBC & Chem 7: 05/22/24 05:50 05/24/24 06:24 Labs: Abnormal Lab Results - Last 24 Hours (Table) 05/24/24 Range/Units 06:24 Sodium 154 H (137-145) mmol/L Potassium 3.0 L (3.5-5.1) mmol/L Chloride 116 H (98-107) mmol/L Carbon Dioxide 32 H (22-30) mmol/L Microbiology - Last 24 Hours (Table) 05/18/24 14:10 Blood Culture - Final Blood Assessment and Plan Assessment: This is a 68-year-old gentleman with history of the mental delay, psychiatric disorder who [facility] emergency [facility] for altered men cristóbal status. It seems that he had influenza 3 weeks ago and since then he has been declining not interactive verbalizing not engaging with conversation or activities. CT of the head shows concern for right VU territory/frontal CVA Acute to subacute stroke and on initial CAT scan it seems over the right VU/frontal territory but on MRI it shows bilateral hemispheric with the largest being over the right frontal. This seems more cardioembolic in nature. CT angiography of the head and neck is unremarkable for any significant stenosis or occlusion. Apical, inferior hypokinesis may be consistent with Takotsubo's on 2D echo Altered mental status due to above as well as metabolic encephalopathy. Patient has been afebrile so far and wbc is midly elevated. Underlying developmentally delay Underlying psychiatric disease issue Plan: Continue Aspirin 81 mg p.o. orally and Plavix 75 mg daily. Pending ASHWIN. Cardiology is on board. Continue Lipitor 40mg qhs. Continue neuro checks Cardiac monitoring. PT, OT, [employer] are consulted Patient is on Keppra 500mg bid (home medication). Consulted I.D. team for leukocytosis. Patient is afebrile. No need to pursue lumbar puncture since the patient has bilateral hemispheric stroke and this is not meningitis or encephalitis. So far has been afebrile. Will defer the rest of medical management to primary team. For DVT Prophylaxis: On Subq heparin. Time with Patient: Less than 30
--- NOTE | 2024-05-24 19:31 | P.PN ---
Progress Note - Text Progress Note Date: 05/24/24 May 21: Laying in bed. Awake. Not able to speak. Left-sided paresis. Spoke to the nurse. Needs assistance with feeding. Seen by speech therapist. Moderate oral dysphagia. Chopped diet. Pending MRI. May 22: Laying in bed. Awake. Not really following commands. Minimal oral intake. Wants to 1 assist. MRI of the brain shows multifocal acute infarcts bilaterally. Largest area involving the medial aspect of the right frontal lobe. Moderate diffuse cerebral atrophy. ASHWIN ordered. Nearly remains flaccid on the left side. Some weakness on the right side 2. Getting LR.. Ordered NG tube for medications and feeding. May 23: Reclining in bed. Awake. Not speaking. Remains flaccid on the left side. Spoke to the nurse aide. Eating small amounts. Scheduled for ASHWIN tomorrow. Blood pressure still running on the high side. Increase Lopressor to 50 twice daily. Change Keppra to p.o. Did speak to nurse Louisa. Informed legal guardian office to get in touch with me. My pager number was given. May 24: ASHWIN could not be done as patient not able to swallow the probe. I was hoping to hear from legal guardians office, may Numbers left with them. Sodium up to 154. Will change to D5 4 5. Prognosis guarded. Eating about 25-50% with assistance Active Medications Acetaminophen (Acetaminophen Tab 325 Mg Tab) 650 mg PO Q6H PRN PRN Reason: Pain or Fever > 100.5 Aspirin (Aspirin 81 Mg) 81 mg PO DAILY [facility] Last Admin: 05/24/24 12:47 Dose: 81 mg Atorvastatin Calcium (Atorvastatin 40 Mg Tab) 40 mg PO HS [facility] Last Admin: 05/23/24 20:12 Dose: 40 mg Clopidogrel Bisulfate (Clopidogrel 75 Mg Tab) 75 mg PO DAILY [facility] Last Admin: 05/24/24 12:47 Dose: 75 mg Enoxaparin Sodium (Enoxaparin 40 Mg/0.4 Ml Syringe) 40 mg SQ DAILY [facility] Last Admin: 05/24/24 12:48 Dose: 40 mg Hydralazine HCl (Hydralazine Hcl 20 Mg/Ml 1 Ml Vial) 10 mg IVP Q4HR PRN PRN Reason: Blood Pressure - High Last Admin: 05/23/24 09:06 Dose: 10 mg Dextrose/Sodium Chloride (Dextrose 5%-1/2ns Iv Soln) 1,000 mls @ 125 mls/hr IV .Q8H [facility] Levetiracetam (Levetiracetam 500 Mg Tab) 500 mg PO Q12HR [facility] Last Admin: 05/24/24 12:47 Dose: 500 mg Losartan Potassium (Losartan 25 Mg Tab) 25 mg PO DAILY [facility] Last Admin: 05/24/24 12:48 Dose: 25 mg Metoprolol Tartrate (Metoprolol Tartrate 50 Mg Tab) 50 mg PO BID [facility] Last Admin: 05/24/24 12:48 Dose: 50 mg Multi-Ingred Cream/Lotion/Oil/Oint (Mineral Oil-White Petrolatum 120 Gm Jar) 1 applic TOPICAL HS [facility] Last Admin: 05/23/24 20:13 Dose: 1 applic Sodium Chloride (Sodium Chloride 0.9% Flush 10 Ml Syringe) 10 ml IV Q12H PRN PRN Reason: maintain patency flush On examination: VITAL SIGNS: 98.5, 88, 16, 1 69/91, 94% room air GENERAL APPEARANCE: reclining bed, awake, not following commands HEENT: Normal external appearance of nose and ear. Oral cavity normal EYES: Pupils equal. Conjunctiva normal. NECK: JVD not raised. Mass not palpable. RESPIRATORY: Respiratory effort normal. Lungs clear to auscultation. CARDIOVASCULAR: First and second sounds normal. No edema. ABDOMEN: Soft. Liver and spleen not palpable. No tenderness. No mass palpable. PSYCHIATRY: Not following commands Neurological: Left arm left leg power 0/5. Not speaking. Moderate dysphagia per speech. Not following commands INVESTIGATIONS, reviewed in the clinical context: May 24: Sodium 154 potassium 3 creatinine 0.67 MRI brain: Multiple areas of acute stroke May 22: White count 11.9 hemoglobin 13.7 platelets 356 sodium 149 potassium 3.1 creatinine 0.76 May 21: White count 12 hemoglobin 14.7 platelet 389 sodium 147 potassium 3.4 creatinine 0.78. Procalcitonin 0.13 LDL 140 Influenza type A, type B, RSV, SARS-CoV-2: Not detected CT angio of the head and neck: Diminutive right A1 segment CT brain: Right VU territory frontal lobe CVA. Assessment plan: -Acute stroke: Multiple areas involved.. Likely embolic: Not improving Aspirin. Lipitor. Cardiology attempted ASHWIN: Patient could not swallow the probe -Acute dysarthria. Secondary to stroke: Patient not making any sounds or words: Not improving Speech therapy following -Acute moderate dysphagia from stroke: Minimal intake: Not improving Feeding with direct supervision with pured diet -Acute left paresis from stroke Complete assist PT OT -Hypernatremia from free water deficit decreased oral intake: Worsening Change IV fluids to D5.45 at 125 cc an hour. -Leukocytosis likely from hemoconcentration. -Essential hypertension Increase Lopressor to 50 twice daily. Cozaar 25 mg a day. -Acute medical debility patient being a total assist secondary stroke PT OT -Legal guardian ASHWIN could not be done. Change IV fluids. Prognosis guarded.
[2024-05-24] MEDS: DEXTROSE 5%-0.45% NACL 1,000 ML IV SCH (19:36)
[2024-05-24] MEDS: POTASSIUM BICARBONATE/CIT AC 20 MEQ TABLET.EFF PO ONE (19:46)
[2024-05-25 11:33] VITALS: BMI 22.9
--- NOTE | 2024-05-25 12:23 | P.PN ---
Subjective Progress Note Date: 05/25/24 Reason for Consult (text): Bilateral hemispheric CVA rule out embolic with ASHWIN and event monitor. History of present illness: This is a 68-year-old male with no previous cardiac history. 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 We have been asked to evaluate the patient for bilateral hemispheric CVA rule out embolic stroke with ASHWIN and event monitor. Patient presented to the emergency center on 05/18 due to altered mental status from [facility]. Patient is unable to provide any information as he is nonverbal. Neurology is following for acute or subacute stroke on initial CT scan and MRI showing bilateral hemispheric with largest being over the right frontal lobe. Blood pressure 171/105, heart rate 105, pulse ox 95% on room air. -EKG: Sinus tachycardia. -Chest x-ray: No acute process -Laboratory studies: WBC 11.9. Potassium 3.1, creatinine 0.76. Triglycerides 122, cholesterol 209, LDL 140. Procalcitonin 0.13. Cepheid viral panel not detected. -Home cardiac medications: None 05/25 Patient seen and examined. Yesterday, ASHWIN was attempted but patient was unable to cooperate for the testing it was aborted. Blood pressure 155/86, heart rate 86, pulse ox 100% on room air. Sodium 154, potassium 3, creatinine 0.67. Physical examination: Gen: This is a 68-year-old male in no acute distress VS: reviewed HEENT: Head is atraumatic, normocephalic. Pupils equal, round. Sclerae is anicteric. NECK: Supple. No JVD. LUNGS: Clear to auscultation. No wheezes or rhonchi. No intercostal retractions. HEART: Regular rate and rhythm. No murmur. ABDOMEN: Soft No tenderness. EXTREMITIES: No pedal edema. No calf tenderness. NEUROLOGICAL: Patient is awake, alert. Assessment: Acute ischemic CVA Leukocytosis followed by ID Hypertension History of brain tumor removed at age 12 Significant developmentally delayed Hypernatremia Plan: Patient has been started on aspirin, a atorvastatin and Plavix by neurology Continue Lopressor 50 mg twice daily Increase losartan to 50 mg daily for blood pressure control Bubble study was not able to be performed on transthoracic echocardiogram No plan for event monitor as patient would not be able to cooperate for this study. No further workup at this time Cardiology will sign off and follow on an as-needed basis. Please reconsult for new concerns. Nurse practitioner note has been reviewed, I agree with documented findings and plan of care. Patient was seen and examined. Objective - Vital Signs Vital signs: Vital Signs Temp 97.9 F 05/25/24 08:04 Pulse 86 05/25/24 08:04 Resp 15 05/25/24 08:04 BP 155/86 05/25/24 08:04 Pulse Ox 100 05/25/24 08:04 FiO2 Intake & Output 05/24/24 05/25/24 05/25/24 18:59 06:59 18:59 Intake Total 600 240 Output Total 800 Balance -200 240 Weight 68.5 kg Intake: IV 0 Intake, IV Titration 600 Amount Lactated Ringers 1,000 ml 600 @ 125 mls/hr IV .Q8H [facility] Rx#:[id number] Oral 240 Output: Urine 800 Other: Voiding Method External Catheter External Catheter - Labs CBC & Chem 7: 05/22/24 05:50 05/24/24 06:24
--- NOTE | 2024-05-25 12:54 | P.PN ---
Subjective Progress Note Date: 05/25/24 I am following-up with patient and ASHWIN was attempted yesterday but unable because of his cooperation per cardiology team so was aborted. Objective - Vital Signs Vital signs: Vital Signs Temp 97.9 F 05/25/24 08:04 Pulse 77 05/25/24 12:00 Resp 16 05/25/24 12:00 BP 166/98 05/25/24 12:00 Pulse Ox 95 05/25/24 12:00 FiO2 Intake & Output 05/24/24 05/25/24 05/25/24 18:59 06:59 18:59 Intake Total 600 240 Output Total 800 700 Balance -200 240 -700 Weight 68.5 kg 68.5 kg Intake: IV 0 Intake, IV Titration 600 Amount Lactated Ringers 1,000 ml 600 @ 125 mls/hr IV .Q8H [facility] Rx#:[id number] Oral 240 Output: Urine 800 700 Other: Voiding Method External Catheter External Catheter External Catheter - Exam GENERAL: The patient is lying in bed and does not appear in acute distress. HENT: Supple neck. NEUROLOGICAL: Very limited. Patient is moderately drowsy and does open eyes more. He is not verbalizing or following commands No facial weakness from limitation. Neuro the strength is very limited in assessment. Tone is somewhat increased in right upper more than left. No spontaneous movement. Some of the work of the workup during this hospital visit consisted of: Patient is afebrile so far Sodium is going up and current is 147. White Blood cell is 12.0K Plasma lactic acid vein is 2.5 repeat is 1.5 Sodium, calcium, magnesium are within normal limits Ammonia is less than 9 CRP is 2.6 Lipid panel: TG 122, Cholestrol 209, LDL 140, HDL 44. Influenza A/B/RSV/SARS COVID [address] of the head is reported as right VU territory/frontal lobe CVA. Further evaluation with MRI may be of benefit. Extensive consolation mineralization that is seen on 10/15/2023. Postsurgical changes in the posterior skull and cerebellum. I personally reviewed the CT head and I do not see what reading radiologist marked and subacute stroke due to acute or artifact. CT angiography of the head and neck is reported as no evidence of dissection of cervical internal carotid artery or vertebral artery. No evidence of significant stenosis at the carotid bifurcation. No evidence of intracranial high-grade stenosis or intracranial aneurysm. Diminutive right A1 segment. MRI of the brain is reported as there is multifocal acute infarct is seen bilateral with the largest area of involvement in the medial aspect of the right frontal lobe. There is moderate diffuse cerebral atrophy and chronic small vessel ischemic change redemonstrated. There is postsurgical changes in the posterior aspect of posterior fossa again. Old right temporal lobe infarct redemonstrated. 2D echo: EF %. Apical, inferior hypokinesis may be consistent with Takotsubo's. Venous duplex: Suboptimal study without acute DVT identified bilaterally. - Labs CBC & Chem 7: 05/22/24 05:50 05/24/24 06:24 Assessment and Plan Assessment: This is a 68-year-old gentleman with history of the mental delay, psychiatric disorder who presents to the emergency department from [facility] for altered mental status. It seems that he had influenza 3 weeks ago and since then he has been declining not interactive verbalizing not engaging with conversation or activities. CT of the head shows concern for right VU territory/frontal CVA Acute to subacute stroke and on initial CAT scan it seems over the right VU/frontal territory but on MRI it shows bilateral hemispheric with the largest being over the right frontal. This seems more cardioembolic in nature. CT angiography of the head and neck is unremarkable for any significant stenosis or occlusion. Apical, inferior hypokinesis may be consistent with Takotsubo's on 2D echo Altered mental status due to above as well as metabolic encephalopathy. Patient has been afebrile so far and wbc is midly elevated. Underlying developmentally delay Underlying psychiatric disease issue Plan: Continue Aspirin 81 mg p.o. orally and Plavix 75 mg daily. Cardiology is on board. ASHWIN was attempted yesterday but aborted because of his cooperation. Continue Lipitor 40mg qhs. Continue neuro checks Cardiac monitoring. Recommend a 30 days event monitor. PT, OT, [employer] are consulted Patient is on Keppra 500mg bid (home medication). Will defer the rest of medical management to primary team. For DVT Prophylaxis: On Subq heparin. Upon discharge, patient to follow-up with neurologist as outpatient within 2-3 weeks. The plan is discussed with his nurse. Will follow-up with patient sporadically if remains in the hospital. Dr. Mo will resume neurology service tomorrow A.M. then Dr. Hasan will resume this Tuesday A.M. Time with Patient: Less than 30
[2024-05-25 14:16] LABS: African American GFR (CKD) >90 (>60 ml/min/1.73 sqM); Anion Gap 6 mmol/L; Blood Urea Nitrogen 10 mg/dL (9-20); Calcium 8.7 mg/dL (8.4-10.2); Carbon Dioxide 33 mmol/L (22-30); Chloride 116 mmol/L (98-107); Glucose 182 mg/dL (74-99); Non-African American GFR(CKD) >90 (>60 ml/min/1.73 sqM); Potassium 2.8 mmol/L (3.5-5.1); Sodium 155 mmol/L (137-145)
--- NOTE | 2024-05-25 16:40 | P.PN ---
Progress Note - Text Progress Note Date: 05/25/24 May 21: Laying in bed. Awake. Not able to speak. Left-sided paresis. Spoke to the nurse. Needs assistance with feeding. Seen by speech therapist. Moderate oral dysphagia. Chopped diet. Pending MRI. May 22: Laying in bed. Awake. Not really following commands. Minimal oral intake. Wants to 1 assist. MRI of the brain shows multifocal acute infarcts bilaterally. Largest area involving the medial aspect of the right frontal lobe. Moderate diffuse cerebral atrophy. ASHWIN ordered. Nearly remains flaccid on the left side. Some weakness on the right side 2. Getting LR.. Ordered NG tube for medications and feeding. May 23: Reclining in bed. Awake. Not speaking. Remains flaccid on the left side. Spoke to the nurse aide. Eating small amounts. Scheduled for ASHWIN tomorrow. Blood pressure still running on the high side. Increase Lopressor to 50 twice daily. Change Keppra to p.o. Did speak to nurse Louisa. Informed legal guardian office to get in touch with me. My pager number was given. May 24: ASHWIN could not be done as patient not able to swallow the probe. I was hoping to hear from legal guardians office, may Numbers left with them. Sodium up to 154. Will change to D5 4 5. Prognosis guarded. Eating about 25-50% with assistance May 25: Patient remains unchanged. Has some right-sided movement. No movement of the left side. Specially left arm is flaccid. Not speaking. Not following commands. Seen by speech therapist today: Patient is downgraded to pured with honey thick liquids by spoon. One-to-one supervision. Remains on IV fluids. Sodium up to 155. Increase IV fluids to 150 cc an hour. As had not heard from the legal guardians of it. I decided to drive down to the [place] house. I met withForrest Becerril-Case was discussed with him. Including's patient not able to follow any commands. Not speaking. Barely able to eat. The fol lowing was decided. Patient remains DNR. No feeding tube. I informed the oil field caser Yvrose. Patient is long-term resident at [facility]. Start the process for return with probable hospice. Prognosis very guarded. Active Medications Acetaminophen (Acetaminophen Tab 325 Mg Tab) 650 mg PO Q6H PRN PRN Reason: Pain or Fever > 100.5 Aspirin (Aspirin 81 Mg) 81 mg PO DAILY [facility] Last Admin: 05/25/24 08:10 Dose: 81 mg Atorvastatin Calcium (Atorvastatin 40 Mg Tab) 40 mg PO HS [facility] Last Admin: 05/24/24 19:36 Dose: 40 mg Clopidogrel Bisulfate (Clopidogrel 75 Mg Tab) 75 mg PO DAILY [facility] Last Admin: 05/25/24 08:11 Dose: 75 mg Enoxaparin Sodium (Enoxaparin 40 Mg/0.4 Ml Syringe) 40 mg SQ DAILY [facility] Last Admin: 05/25/24 08:11 Dose: 40 mg Hydralazine HCl (Hydralazine Hcl 20 Mg/Ml 1 Ml Vial) 10 mg IVP Q4HR PRN PRN Reason: Blood Pressure - High Last Admin: 05/23/24 09:06 Dose: 10 mg Dextrose/Sodium Chloride (Dextrose 5%-1/2ns Iv Soln) 1,000 mls @ 150 mls/hr IV .Q6H40M [facility] Last Admin: 05/25/24 12:07 Dose: 125 mls/hr Levetiracetam (Levetiracetam 500 Mg Tab) 500 mg PO Q12HR [facility] Last Admin: 05/25/24 08:11 Dose: 500 mg Losartan Potassium (Losartan 50 Mg Tab) 50 mg PO DAILY [facility] Metoprolol Tartrate (Metoprolol Tartrate 50 Mg Tab) 50 mg PO BID [facility] Last Admin: 05/25/24 08:11 Dose: 50 mg Multi-Ingred Cream/Lotion/Oil/Oint (Mineral Oil-White Petrolatum 120 Gm Jar) 1 applic TOPICAL HS [facility] Last Admin: 05/24/24 19:37 Dose: 1 applic Potassium Bicarbonate (Potassium Bicarbonate/Cit Ac 20 Meq Tablet.Eff) 40 meq PO ONCE ONE Stop: 05/25/24 16:35 Potassium Bicarbonate (Potassium Bicarbonate/Cit Ac 20 Meq Tablet.Eff) 20 meq PO ONCE ONE Stop: 05/25/24 16:35 Sodium Chloride (Sodium Chloride 0.9% Flush 10 Ml Syringe) 10 ml IV Q12H PRN PRN Reason: maintain patency flush On examination: VITAL SIGNS: 97.9, 89, 15, 149 x 89, 95% room air GENERAL APPEARANCE: reclining bed, awake, not following commands. Not talking HEENT: Normal external appearance of nose and ear. Oral cavity normal EYES: Pupils equal. Conjunctiva normal. NECK: JVD not raised. Mass not palpable. RESPIRATORY: Respiratory effort normal. Lungs clear to auscultation. CARDIOVASCULAR: First and second sounds normal. No edema. ABDOMEN: Soft. Liver and spleen not palpable. No tenderness. No mass palpable. PSYCHIATRY: Not following commands Neurological: Left arm left leg power 0/5. Not speaking. Moderate dysphagia per speech. Not following commands INVESTIGATIONS, reviewed in the clinical context: May 25: Sodium 155 potassium 2.8 creatinine 0.69 May 24: Sodium 154 potassium 3 creatinine 0.67 MRI brain: Multiple areas of acute stroke May 22: White count 11.9 hemoglobin 13.7 platelets 356 sodium 149 potassium 3.1 creatinine 0.76 May 21: White count 12 hemoglobin 14.7 platelet 389 sodium 147 potassium 3.4 creatinine 0.78. Procalcitonin 0.13 LDL 140 Influenza type A, type B, RSV, SARS-CoV-2: Not detected CT angio of the head and neck: Diminutive right A1 segment CT brain: Right VU territory frontal lobe CVA. Assessment plan: -Acute stroke: Multiple areas involved.. Likely embolic: Not improving Aspirin. Lipitor. Cardiology attempted ASHWIN: Patient could not swallow the probe -Acute dysarthria. Secondary to stroke: Patient not making any sounds or words: Not improving Speech therapy following -Acute moderate dysphagia from stroke: Minimal intake: Not improving Feeding with direct supervision with pured diet -Acute left paresis from stroke Complete assist PT OT -Hypernatremia from free water deficit decreased oral intake: Worsening Increase IV fluids to D5.45 at 150 cc an hour. -Leukocytosis likely from hemoconcentration. -Essential hypertension Increase Lopressor to 50 twice daily. Cozaar 25 mg a day. -Acute medical debility patient being a total assist secondary stroke PT OT -Legal guardian- Forrest Becerril Advance care planning [met with legal guardianTiasher Becerril, at the court house] Clinical situation was discussed. Questions answered. Prognosis not good. At this point patient is being made DNR. No feeding tube. [id number] patient to either return to his ECF or some other place. Hospice orders will be initiated through the court process. Ada was informed long term care social worker from RN. Time spent about 35 minutes
[2024-05-25] MEDS: POTASSIUM BICARBONATE/CIT AC 20 MEQ TABLET.EFF PO ONE ×2 (17:12)
[2024-05-26] MEDS: LOSARTAN 50 MG TAB PO SCH (08:32)
[2024-05-26] MEDS: POTASSIUM BICARBONATE/CIT AC 20 MEQ TABLET.EFF PO ONE ×2 (18:13)
--- NOTE | 2024-05-26 18:15 | P.PN ---
Progress Note - Text Progress Note Date: 05/26/24 May 21: Laying in bed. Awake. Not able to speak. Left-sided paresis. Spoke to the nurse. Needs assistance with feeding. Seen by speech therapist. Moderate oral dysphagia. Chopped diet. Pending MRI. May 22: Laying in bed. Awake. Not really following commands. Minimal oral intake. Wants to 1 assist. MRI of the brain shows multifocal acute infarcts bilaterally. Largest area involving the medial aspect of the right frontal lobe. Moderate diffuse cerebral atrophy. ASHWIN ordered. Nearly remains flaccid on the left side. Some weakness on the right side 2. Getting LR.. Ordered NG tube for medications and feeding. May 23: Reclining in bed. Awake. Not speaking. Remains flaccid on the left side. Spoke to the nurse aide. Eating small amounts. Scheduled for ASHWIN tomorrow. Blood pressure still running on the high side. Increase Lopressor to 50 twice daily. Change Keppra to p.o. Did speak to nurse Louisa. Informed legal guardian office to get in touch with me. My pager number was given. May 24: ASHWIN could not be done as patient not able to swallow the probe. I was hoping to hear from legal guardians office, may Numbers left with them. Sodium up to 154. Will change to D5 4 5. Prognosis guarded. Eating about 25-50% with assistance May 25: Patient remains unchanged. Has some right-sided movement. No movement of the left side. Specially left arm is flaccid. Not speaking. Not following commands. Seen by speech therapist today: Patient is downgraded to pured with honey thick liquids by spoon. One-to-one supervision. Remains on IV fluids. Sodium up to 155. Increase IV fluids to 150 cc an hour. As had not heard from the legal guardians of it. I decided to drive down to the [facility]. I met withForrest Becerril-Case was discussed with him. Including's patient not able to follow any commands. Not speaking. Barely able to eat. The fol lowing was decided. Patient remains DNR. No feeding tube. I informed the machine adjuster leader case trim Yvrose. Patient is long-term resident at [facility]. Start the process for return with probable hospice. Prognosis very guarded. May 26: Laying in bed. Awake. Not speaking. Not following commands. Left side remains flaccid. Eating pured diet some with assistance. . Getting D5.45. Prognosis remains poor. Taking oral medications. Eating between 10- 25%. Blood pressure better. Cozaar increased to 50 mg daily Active Medications Acetaminophen (Acetaminophen Tab 325 Mg Tab) 650 mg PO Q6H PRN PRN Reason: Pain or Fever > 100.5 Aspirin (Aspirin 81 Mg) 81 mg PO DAILY [facility] Last Admin: 05/26/24 08:32 Dose: 81 mg Atorvastatin Calcium (Atorvastatin 40 Mg Tab) 40 mg PO HS [facility] Last Admin: 05/25/24 19:58 Dose: 40 mg Clopidogrel Bisulfate (Clopidogrel 75 Mg Tab) 75 mg PO DAILY [facility] Last Admin: 05/26/24 08:32 Dose: 75 mg Enoxaparin Sodium (Enoxaparin 40 Mg/0.4 Ml Syringe) 40 mg SQ DAILY [facility] Last Admin: 05/26/24 08:32 Dose: 40 mg Hydralazine HCl (Hydralazine Hcl 20 Mg/Ml 1 Ml Vial) 10 mg IVP Q4HR PRN PRN Reason: Blood Pressure - High Last Admin: 05/23/24 09:06 Dose: 10 mg Dextrose/Sodium Chloride (Dextrose 5%-1/2ns Iv Soln) 1,000 mls @ 150 mls/hr IV .Q6H40M [facility] Last Admin: 05/26/24 16:51 Dose: 150 mls/hr Levetiracetam (Levetiracetam 500 Mg Tab) 500 mg PO Q12HR [facility] Last Admin: 05/26/24 08:32 Dose: 500 mg Losartan Potassium (Losartan 50 Mg Tab) 50 mg PO DAILY [facility] Last Admin: 05/26/24 08:32 Dose: 50 mg Metoprolol Tartrate (Metoprolol Tartrate 50 Mg Tab) 50 mg PO BID [facility] Last Admin: 05/26/24 08:32 Dose: 50 mg Multi-Ingred Cream/Lotion/Oil/Oint (Mineral Oil-White Petrolatum 120 Gm Jar) 1 applic TOPICAL HS [facility] Last Admin: 05/25/24 19:59 Dose: 1 applic Potassium Bicarbonate (Potassium Bicarbonate/Cit Ac 20 Meq Tablet.Eff) 40 meq PO ONCE ONE Stop: 05/26/24 18:11 Potassium Bicarbonate (Potassium Bicarbonate/Cit Ac 20 Meq Tablet.Eff) 20 meq PO ONCE ONE Stop: 05/26/24 18:11 Sodium Chloride (Sodium Chloride 0.9% Flush 10 Ml Syringe) 10 ml IV Q12H PRN PRN Reason: maintain patency flush On examination: VITAL SIGNS: 98.4, 81, 16, 154 x 79, 97% room air GENERAL APPEARANCE: reclining bed, awake, not following commands. Not talking HEENT: Normal external appearance of nose and ear. Oral cavity normal EYES: Pupils equal. Conjunctiva normal. NECK: JVD not raised. Mass not palpable. RESPIRATORY: Respiratory effort normal. Lungs clear to auscultation. CARDIOVASCULAR: First and second sounds normal. No edema. ABDOMEN: Soft. Liver and spleen not palpable. No tenderness. No mass palpable. PSYCHIATRY: Not following commands Neurological: Left arm left leg power 0/5. Not speaking. Moderate dysphagia per speech. Not following commands INVESTIGATIONS, reviewed in the clinical context: May 25: Sodium 155 potassium 2.8 creatinine 0.69 May 24: Sodium 154 potassium 3 creatinine 0.67 MRI brain: Multiple areas of acute stroke May 22: White count 11.9 hemoglobin 13.7 platelets 356 sodium 149 potassium 3.1 creatinine 0.76 May 21: White count 12 hemoglobin 14.7 platelet 389 sodium 147 potassium 3.4 creatinine 0.78. Procalcitonin 0.13 LDL 140 Influenza type A, type B, RSV, SARS-CoV-2: Not detected CT angio of the head and neck: Diminutive right A1 segment CT brain: Right VU territory frontal lobe CVA. Assessment plan: -Acute stroke: Multiple areas involved.. Likely embolic: Not improving Aspirin. Lipitor. Cardiology attempted ASHWIN: Patient could not swallow the probe -Acute dysarthria. Secondary to stroke: Patient not making any sounds or words: Not improving Speech therapy following -Acute moderate dysphagia from stroke: Minimal intake: Not improving Feeding with direct supervision with pured diet -Acute left paresis from stroke Complete assist PT OT -Hypernatremia from free water deficit decreased oral intake: Worsening Increase IV fluids to D5.45 at 150 cc an hour. -Leukocytosis likely from hemoconcentration. -Essential hypertension better Lopressor to 50 twice daily. Increase Cozaar 50 mg daily -Acute medical debility patient being a total assist secondary stroke PT OT -Legal guardian- Forrest Becerril Advance care planning [met with legal guardianTiasher Becerril, at the [facility]] Clinical situation was discussed. Questions answered. Prognosis not good. At this point patient is being made DNR. No feeding tube. [id number] patient to either return to his ECF or some other place. Hospice orders will be initiated through the court process. Ada was informed social media analyst from RN. Time spent about 35 minutes Prognosis poor
[2024-05-26] MEDS ORDERED: LOSARTAN 50 MG TAB PO SCH (21:00)
[2024-05-27 06:54] LABS: African American GFR (CKD) >90 (>60 ml/min/1.73 sqM); Anion Gap 5 mmol/L; Blood Urea Nitrogen 10 mg/dL (9-20); Calcium 8.4 mg/dL (8.4-10.2); Carbon Dioxide 32 mmol/L (22-30); Chloride 117 mmol/L (98-107); Glucose 138 mg/dL (74-99); Non-African American GFR(CKD) >90 (>60 ml/min/1.73 sqM); Potassium 3.3 mmol/L (3.5-5.1); Sodium 154 mmol/L (137-145)
[2024-05-27] MEDS: LOSARTAN 50 MG TAB PO SCH ×2 (08:17→19:55)
--- NOTE | 2024-05-27 12:47 | P.PN ---
Progress Note - Text Progress Note Date: 05/27/24 May 21: Laying in bed. Awake. Not able to speak. Left-sided paresis. Spoke to the nurse. Needs assistance with feeding. Seen by speech therapist. Moderate oral dysphagia. Chopped diet. Pending MRI. May 22: Laying in bed. Awake. Not really following commands. Minimal oral intake. Wants to 1 assist. MRI of the brain shows multifocal acute infarcts bilaterally. Largest area involving the medial aspect of the right frontal lobe. Moderate diffuse cerebral atrophy. ASHWIN ordered. Nearly remains flaccid on the left side. Some weakness on the right side 2. Getting LR.. Ordered NG tube for medications and feeding. May 23: Reclining in bed. Awake. Not speaking. Remains flaccid on the left side. Spoke to the nurse aide. Eating small amounts. Scheduled for ASHWIN tomorrow. Blood pressure still running on the high side. Increase Lopressor to 50 twice daily. Change Keppra to p.o. Did speak to nurse Louisa. Informed legal guardian office to get in touch with me. My pager number was given. May 24: ASHWIN could not be done as patient not able to swallow the probe. I was hoping to hear from legal guardians office, may Numbers left with them. Sodium up to 154. Will change to D5 4 5. Prognosis guarded. Eating about 25-50% with assistance May 25: Patient remains unchanged. Has some right-sided movement. No movement of the left side. Specially left arm is flaccid. Not speaking. Not following commands. Seen by speech therapist today: Patient is downgraded to pured with honey thick liquids by spoon. One-to-one supervision. Remains on IV fluids. Sodium up to 155. Increase IV fluids to 150 cc an hour. As had not heard from the legal guardians of it. I decided to drive down to the [place] house. I met withForrest Becerril-Case was discussed with him. Including's patient not able to follow any commands. Not speaking. Barely able to eat. The fol lowing was decided. Patient remains DNR. No feeding tube. I informed the correctional counselor/case manager Yvrose. Patient is long-term resident at [facility]. Start the process for return with probable hospice. Prognosis very guarded. May 26: Laying in bed. Awake. Not speaking. Not following commands. Left side remains flaccid. Eating pured diet some with assistance. . Getting D5.45. Prognosis remains poor. Taking oral medications. Eating between 10- 25%. Blood pressure better. Cozaar increased to 50 mg daily May 27: Clinical status unchanged. For breakfast had 1 cup of pudding. Again not following commands not communicating. Left side remains flaccid. Cozaar was increased yesterday to 50. Some improvement in blood pressure. Increase Cozaar to 50 twice daily. Sodium-154. Continue D5.45. Probable discharge with hospice tomorrow. Active Medications Acetaminophen (Acetaminophen Tab 325 Mg Tab) 650 mg PO Q6H PRN PRN Reason: Pain or Fever > 100.5 Aspirin (Aspirin 81 Mg) 81 mg PO DAILY [facility] Last Admin: 05/27/24 08:17 Dose: 81 mg Atorvastatin Calcium (Atorvastatin 40 Mg Tab) 40 mg PO HS [facility] Last Admin: 05/26/24 19:39 Dose: 40 mg Clopidogrel Bisulfate (Clopidogrel 75 Mg Tab) 75 mg PO DAILY [facility] Last Admin: 05/27/24 08:17 Dose: 75 mg Enoxaparin Sodium (Enoxaparin 40 Mg/0.4 Ml Syringe) 40 mg SQ DAILY [facility] Last Admin: 05/27/24 08:17 Dose: 40 mg Hydralazine HCl (Hydralazine Hcl 20 Mg/Ml 1 Ml Vial) 10 mg IVP Q4HR PRN PRN Reason: Blood Pressure - High Last Admin: 05/23/24 09:06 Dose: 10 mg Dextrose/Sodium Chloride (Dextrose 5%-1/2ns Iv Soln) 1,000 mls @ 150 mls/hr IV .Q6H40M [facility] Last Admin: 05/27/24 08:17 Dose: 150 mls/hr Levetiracetam (Levetiracetam 500 Mg Tab) 500 mg PO Q12HR [facility] Last Admin: 05/27/24 08:17 Dose: 500 mg Losartan Potassium (Losartan 50 Mg Tab) 50 mg PO DAILY [facility] Last Admin: 05/27/24 08:17 Dose: 50 mg Metoprolol Tartrate (Metoprolol Tartrate 50 Mg Tab) 50 mg PO BID [facility] Last Admin: 05/27/24 08:17 Dose: 50 mg Multi-Ingred Cream/Lotion/Oil/Oint (Mineral Oil-White Petrolatum 120 Gm Jar) 1 applic TOPICAL HS [facility] Last Admin: 05/26/24 19:39 Dose: 1 applic Sodium Chloride (Sodium Chloride 0.9% Flush 10 Ml Syringe) 10 ml IV Q12H PRN PRN Reason: maintain patency flush On examination: VITAL SIGNS: 98.7, 92, 16, 1 5687, 98% room air GENERAL APPEARANCE: reclining bed, awake, not following commands. Not talking HEENT: Normal external appearance of nose and ear. Oral cavity normal EYES: Pupils equal. Conjunctiva normal. NECK: JVD not raised. Mass not palpable. RESPIRATORY: Respiratory effort normal. Lungs clear to auscultation. CARDIOVASCULAR: First and second sounds normal. No edema. ABDOMEN: Soft. Liver and spleen not palpable. No tenderness. No mass palpable. PSYCHIATRY: Not following commands Neurological: Left arm left leg power 0/5. Not speaking. Moderate dysphagia per speech. Not following commands INVESTIGATIONS, reviewed in the clinical context: May 27: Sodium 154 potassium 3.3 creatinine 0.64 May 25: Sodium 155 potassium 2.8 creatinine 0.69 May 24: Sodium 154 potassium 3 creatinine 0.67 MRI brain: Multiple areas of acute stroke May 22: White count 11.9 hemoglobin 13.7 platelets 356 sodium 149 potassium 3.1 creatinine 0.76 May 21: White count 12 hemoglobin 14.7 platelet 389 sodium 147 potassium 3.4 creatinine 0.78. Procalcitonin 0.13 LDL 140 Influenza type A, type B, RSV, SARS-CoV-2: Not detected CT angio of the head and neck: Diminutive right A1 segment CT brain: Right VU territory frontal lobe CVA. Assessment plan: -Acute stroke: Multiple areas involved.. Likely embolic: Not improving Aspirin. Lipitor. Cardiology attempted ASHWIN: Patient could not swallow the probe -Acute dysarthria. Secondary to stroke: Patient not making any sounds or words: Not improving Speech therapy following -Acute moderate dysphagia from stroke: Minimal intake: Not improving Feeding with direct supervision with pured diet -Acute left paresis from stroke Complete assist PT OT -Hypernatremia from free water deficit decreased oral intake: Not improving Continue IV fluids to D5.45 at 150 cc an hour. -Leukocytosis likely from hemoconcentration. -Essential hypertension better Lopressor to 50 twice daily. Increase Cozaar 50 mg daily -Acute medical debility patient being a total assist secondary stroke PT OT -Legal guardian- Forrest Becerril Advance care planning [met with legal guardianTiasher Becerril, at the court house] Clinical situation was discussed. Questions answered. Prognosis not good. At this point patient is being made DNR. No feeding tube. [id number] patient to either return to his ECF or some other place. Hospice orders will be initiated through the court process. Ada was informed social media strategist from RN. Time spent about 35 minutes Awaiting to go to hospice tomorrow. Social work involved including legal guardian
[2024-05-27] MEDS: POTASSIUM BICARBONATE/CIT AC 20 MEQ TABLET.EFF PO ONE (15:06)
[2024-05-28 08:21] VITALS: BP 137/90; PULSE 86; RESP 18; TEMP 98.8
--- NOTE | 2024-05-28 11:51 | P.DS ---
Providers Date of admission: 05/19/24 14:28 Expected date of discharge: 05/28/24 Attending physician: Roberth Gooden Consults: 05/18/24 15:54 Consult Physician Urgent Consulting Provider: Abigail Banuelos Consult Reason/Comments: Right VU CVA Do you want consulting provider notified?: Yes 05/20/24 13:45 Consult Physician Routine Consulting Provider: Madai Crowley Consult Reason/Comments: leukocytosis with ams. recent influenza Do you want consulting provider notified?: Yes 05/22/24 13:13 Consult Physician Routine Consulting Provider: Rojas Zamarripa Consult Reason/Comments: bilateral hemispheric cva r/o embolic. ASHWIN and ev ent monitor. Do you want consulting provider notified?: Yes Primary care physician: [facility] Course: May 21: Laying in bed. Awake. Not able to speak. Left-sided paresis. Spoke to the nurse. Needs assistance with feeding. Seen by speech therapist. Moderate oral dysphagia. Chopped diet. Pending MRI. May 22: Laying in bed. Awake. Not really following commands. Minimal oral intake. Wants to 1 assist. MRI of the brain shows multifocal acute infarcts bilaterally. Largest area involving the medial aspect of the right frontal lobe. Moderate diffuse cerebral atrophy. ASHWIN ordered. Nearly remains flaccid on the left side. Some weakness on the right side 2. Getting LR.. Ordered NG tube for medications and feeding. May 23: Reclining in bed. Awake. Not speaking. Remains flaccid on the left side. Spoke to the nurse aide. Eating small amounts. Scheduled for ASHWIN tomorrow. Blood pressure still running on the high side. Increase Lopressor to 50 twice daily. Change Keppra to p.o. Did speak to nurse Louisa. Informed legal guardian office to get in touch with me. My pager number was given. May 24: ASHWIN could not be done as patient not able to swallow the probe. I was hoping to hear from legal guardians office, may Numbers left with them. Sodium up to 154. Will change to D5 4 5. Prognosis guarded. Eating about 25-50% with assistance May 25: Patient remains unchanged. Has some right-sided movement. No movement of the left side. Specially left arm is flaccid. Not speaking. Not following commands. Seen by speech therapist today: Patient is downgraded to pured with honey thick liquids by spoon. One-to-one supervision. Remains on IV fluids. Sodium up to 155. Increase IV fluids to 150 cc an hour. As had not heard from the legal guardians of it. I decided to drive down to the court house. I met withForrest Becerril-Case was discussed with him. Including's patient not able to follow any commands. Not speaking. Barely able to eat. The following was decided. Patient remains DNR. No feeding tube. I informed the caseworker intake Yvrose. Patient is long-term resident at [facility]. Start the process for return with probable hospice. Prognosis very guarded. May 26: Laying in bed. Awake. Not speaking. Not following commands. Left side remains flaccid. Eating pured diet some with assistance. . Getting D5.45. Prognosis remains poor. Taking oral medications. Eating between 10- 25%. Blood pressure better. Cozaar increased to 50 mg daily May 27: Clinical status unchanged. For breakfast had 1 cup of pudding. Again not following commands not communicating. Left side remains flaccid. Cozaar was increased yesterday to 50. Some improvement in blood pressure. Increase Cozaar to 50 twice daily. Sodium-154. Continue D5.45. Probable discharge with hospice tomorrow. May 28: Blood pressure controlled. Pured diet. Will be discharged to [facility] with hospice. Prognosis poor. On examination: VITAL SIGNS: 98.8, 86, 18, 137/70, 98% room air GENERAL APPEARANCE: reclining bed, awake, not following commands. Not talking HEENT: Normal external appearance of nose and ear. Oral cavity normal EYES: Pupils equal. Conjunctiva normal. NECK: JVD not raised. Mass not palpable. RESPIRATORY: Respiratory effort normal. Lungs clear to auscultation. CARDIOVASCULAR: First and second sounds normal. No edema. ABDOMEN: Soft. Liver and spleen not palpable. No tenderness. No mass palpable. PSYCHIATRY: Not following commands Neurological: Left arm left leg power 0/5. Not speaking. Moderate dysphagia per speech. Not following commands INVESTIGATIONS, reviewed in the clinical context: May 27: Sodium 154 potassium 3.3 creatinine 0.64 May 25: Sodium 155 potassium 2.8 creatinine 0.69 May 24: Sodium 154 potassium 3 creatinine 0.67 MRI brain: Multiple areas of acute stroke May 22: White count 11.9 hemoglobin 13.7 platelets 356 sodium 149 potassium 3.1 creatinine 0.76 May 21: White count 12 hemoglobin 14.7 platelet 389 sodium 147 potassium 3.4 creatinine 0.78. Procalcitonin 0.13 LDL 140 Influenza type A, type B, RSV, SARS-CoV-2: Not detected CT angio of the head and neck: Diminutive right A1 segment CT brain: Right VU territory frontal lobe CVA. Assessment plan: -Acute stroke: Multiple areas involved.. Likely embolic: Not improving Aspirin. Lipitor. Cardiology attempted ASHWIN: Patient could not swallow the probe -Acute dysarthria. Secondary to stroke: Patient not making any sounds or words: Not improving Speech therapy following -Acute moderate dysphagia from stroke: Minimal intake: Not improving Feeding with direct supervision 1S21: With pured diet Aspiration precaution -Acute left paresis from stroke Complete assist -Hypernatremia from free water deficit decreased oral intake: Not improving Received IV fluids to D5.45 at 150 cc an hour. -Leukocytosis likely from hemoconcentration. -Essential hypertension Lopressor 50 twice daily. Cozaar 50 mg twice daily -Acute medical debility patient being a total assist secondary stroke -Legal guardian- Forrest Becerril Advance care planning [met with legal guardianTiasher Becerril, at the court house] Clinical situation was discussed. Questions answered. Prognosis not good. At this point patient is being made DNR. No feeding tube. [id number] patient to either return to his ECF or some other place. Hospice orders will be initiated through the court process. Ada was informed clinical social worker from RN. Time spent about 35 minutes Disposition: [facility] with [facility] hospice Plan - Discharge Summary Discharge Rx Participant: No New Discharge Prescriptions: New Atorvastatin [Lipitor] 40 mg PO HS tab Aspirin 81 mg PO DAILY tab Losartan [Cozaar] 50 mg PO BID tab Metoprolol Tartrate [Lopressor] 50 mg PO BID tab Clopidogrel [Plavix] 75 mg PO DAILY tab Continue levETIRAcetam 500 mg PO BID Acetaminophen [Tylenol] 650 mg PO Q6H PRN PRN Reason: Pain Or Fever > 100.5 0.9 % Sodium Chloride [Sodium Chloride Flush] 10 ml IV Q12H PRN PRN Reason: maintain patency flush Lanolin/Mineral Oil [Eucerin Original Lotion] 1 applic TOPICAL HS Discharge Medication List 0.9 % Sodium Chloride [Sodium Chloride Flush] 10 ml IV Q12H PRN 05/18/24 [History] Acetaminophen [Tylenol] 650 mg PO Q6H PRN 05/18/24 [History] Lanolin/Mineral Oil [Eucerin Original Lotion] 1 applic TOPICAL HS 05/18/24 [History] levETIRAcetam 500 mg PO BID 05/18/24 [History] Aspirin 81 mg PO DAILY tab 05/28/24 [Rx] Atorvastatin [Lipitor] 40 mg PO HS tab 05/28/24 [Rx] Clopidogrel [Plavix] 75 mg PO DAILY tab 05/28/24 [Rx] Losartan [Cozaar] 50 mg PO BID tab 05/28/24 [Rx] Metoprolol Tartrate [Lopressor] 50 mg PO BID tab 05/28/24 [Rx] Follow up Appointment(s)/Referral(s): Alexx Murdock DO [Primary Care Provider] - 1-2 days
--- NOTE | 2024-05-28 13:16 | P.PN ---
Subjective Progress Note Date: 05/28/24 Patient was initially seen by Dr. Randy Chaudhari. Please refer to his note for details. Patient is a 68-year-old male with bilateral hemispheric CVA. ASHWIN could not be performed since lack of cooperation. Patient is on aspirin and Plavix. Some of the work of the workup during this hospital visit consisted of: Patient is afebrile so far Sodium is going up and current is 147. White Blood cell is 12.0K Plasma lactic acid vein is 2.5 repeat is 1.5 Sodium, calcium, magnesium are within normal limits Ammonia is less than 9 CRP is 2.6 Lipid panel: TG 122, Cholestrol 209, LDL 140, HDL 44. Influenza A/B/RSV/SARS COVID [address] of the head is reported as right VU territory/frontal lobe CVA. Further evaluation with MRI may be of benefit. Extensive consolation mineralization that is seen on 10/15/2023. Postsurgical changes in the posterior skull and cerebellum. I personally reviewed the CT head and I do not see what reading radiologist marked and subacute stroke due to acute or artifact. CT angiography of the head and neck is reported as no evidence of dissection of cervical internal carotid artery or vertebral artery. No evidence of significant stenosis at the carotid bifurcation. No evidence of intracranial high-grade stenosis or intracranial aneurysm. Diminutive right A1 segment. MRI of the brain is reported as there is multifocal acute infarct is seen bilateral with the largest area of involvement in the medial aspect of the right frontal lobe. There is moderate diffuse cerebral atrophy and chronic small vessel ischemic change redemonstrated. There is postsurgical changes in the posterior aspect of posterior fossa again. Old right temporal lobe infarct redemonstrated. I personally reviewed and agree with findings. 2D echo: EF %. Apical, inferior hypokinesis may be consistent with Takotsubo's. Venous duplex: Suboptimal study without acute DVT identified bilaterally. Objective - Vital Signs Vital signs: Vital Signs Temp 98.8 F 05/28/24 08:00 Pulse 86 05/28/24 08:00 Resp 18 05/28/24 08:00 BP 137/90 05/28/24 08:00 Pulse Ox 98 05/28/24 08:00 FiO2 Intake & Output 05/27/24 05/28/24 05/28/24 18:59 06:59 18:59 Intake Total 240 1200 120 Output Total 1800 700 Balance -1560 500 120 Intake: Intake, IV Titration 1200 Amount Dextrose 5%-0.45% NaCl 1, 1200 000 ml @ 150 mls/hr IV . Q6H40M [facility] Rx#:[id number] Oral 240 0 120 Output: Urine 1800 700 Other: Voiding Method External Catheter External Catheter External Catheter - Exam Patient is an elderly male, laying in the bed, appears older than his stated age. Patient's tone is increased in the right arm as compared to the left. Patient appears obtunded. He would not open his eyes. He is breathing comfortably. However he did wake up on repeated instructions. Pupils are equal, round and reacting to light. Extraocular muscles are intact. Patient is nonverbal. He squeezes the left hand very minimally. Patient appears somewhat flaccid in the right upper limb. Patient will not wiggle feet. Plantars are probably upgoing bilaterally. He is slightly wiggle his feet on noxious stimulus bilaterally. He does make eye contact, tracks with his eyes. Became very much awake. - Labs CBC & Chem 7: 05/22/24 05:50 05/27/24 05:44 Assessment and Plan Assessment: This is a 68-year-old gentleman with history of the mental delay, psychiatric disorder who presents to the emergency department from [facility] for altered mental status. It seems that he had influenza 3 weeks ago and since then he has been declining not interactive verbalizing not engaging with conversation or activities. CT of the head shows concern for right VU territory/frontal CVA Acute to subacute stroke and on initial CAT scan it seems over the right VU/frontal territory but on MRI it shows bilateral hemispheric with the largest being over the right frontal. This seems more cardioembolic in nature. CT angiography of the head and neck is unremarkable for any significant stenosis or occlusion. Apical, inferior hypokinesis may be consistent with Takotsubo's on 2D echo Altered mental status due to above as well as metabolic encephalopathy. Patient has been afebrile so far and wbc is midly elevated. Underlying developmentally delay Underlying psychiatric disease issue Probable vascular dementia. Plan: Continue Aspirin 81 mg p.o. orally and Plavix 75 mg daily. Cardiology is on board. ASHWIN was attempted yesterday but aborted because of his cooperation. Continue Lipitor 40mg qhs. Continue neuro checks Cardiac monitoring. Recommend a 30 days event monitor. 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 Will defer the rest of medical management to primary team. For DVT Prophylaxis: On Subq heparin. Upon discharge, patient to follow-up with neurologist as outpatient within 2-3 weeks. Neurologically clear.
--- NOTE | 2024-05-28 22:40 | P.PN ---
Subjective Progress Note Date: 05/24/24 Principal diagnosis: Reason for follow-up is leukocytosis and question of infection Patient is a 68-year-old male with a past medical history significant for CVA TIA hyperlipidemia, developmental delay and psychiatric disorder prison resident has been sent to the hospital for evaluation of mental status changes, patient did have a CT of the brain concerning for right VU territory CVA patient did have a mild elevated white count and recent history of influenza with concern for infection prompting this consultation. On today's evaluation that is 05/24/2024,the patient remains to be afebrile, patient is on room air not requiring supplemental oxygen and seem to be breathing comfortably patient remains to be lethargic did not respond to any question no vomiting diarrhea and the changes reported. No CBC was done today's creatinine 0.67 culture remains to be negative Objective - Vital Signs Vital signs: Vital Signs Temp 98.5 F 05/24/24 10:50 Pulse 96 05/24/24 12:00 Resp 18 05/24/24 10:35 BP 167/98 05/24/24 12:00 Pulse Ox 96 05/24/24 12:00 FiO2 Intake & Output 05/23/24 05/24/24 05/24/24 18:59 06:59 18:59 Intake Total 0 Output Total 1600 800 Balance -1600 -800 Weight 70.5 kg Intake: IV 0 Output: Urine 1600 800 Other: Voiding Method External Catheter External Catheter External Catheter - Exam GENERAL DESCRIPTION: An elderly male lying in bed in no distress RESPIRATORY SYSTEM: Unlabored breathing , decreased breath sounds at bases HEART: S1 S2 regular rate and rhythm , ABDOMEN: Soft , no tenderness EXTREMITIES: No edema feet - Labs CBC & Chem 7: 05/22/24 05:50 05/24/24 06:24 Labs: Abnormal Lab Results - Last 24 Hours (Table) 05/24/24 Range/Units 06:24 Sodium 154 H (137-145) mmol/L Potassium 3.0 L (3.5-5.1) mmol/L Chloride 116 H (98-107) mmol/L Carbon Dioxide 32 H (22-30) mmol/L Microbiology - Last 24 Hours (Table) 05/18/24 14:10 Blood Culture - Final Blood Assessment and Plan (1) Leukocytosis Current Visit: Yes Status: Acute Code(s): D72.829 - ELEVATED WHITE BLOOD CELL COUNT, UNSPECIFIED SNOMED Code(s): 974213199 (2) Altered mental status Current Visit: No Status: Acute Code(s): R41.82 - ALTERED MENTAL STATUS, UNSPECIFIED SNOMED Code(s): 229792094 Plan: 1patient presented to hospital with mental status changes and there was concern for possible CVA patient did not have any high-grade fever white count is mildly elevated and apparently recently did have a influenza A infection about 3 weeks ago however the chest x-ray were reported negative for acute cardiopulmonary disease process urine is negative abdominal soft on clinical examination no evidence of any cellulitis or skin breakdown and no neck rigidity currently no obvious focus of infection 2-patient did have mild elevated CRP however did have a normal procalcitonin level and blood cultures currently pending 3-patient MRI is mostly suggestive of acute infarct could be responsible for his current mental status changes no need for LP discussed with the neurologist 4leukocytosis questionably reactive that has trended down without antibiotic therapy and is currently being monitored closely by therapy Dictation was produced using [employer] software. please excuse any grammatical, word or spelling errors.
== END 2024-05-28 14:26 | disposition hospice, inpatient (51) | DRG 64 ==
LOC: EC 14:00 → 3SCARD 18:11 → EEVIPCON 18:11 → 3SCARD 18:28 → OBSVTOIN 05-19 14:28 → 3SCARD 05-19 19:14 → 5NMEDONC 05-27 14:50
PROVIDERS: ADMIT Hospitalist; ATTEND Hospitalist
PROC: 0DJ07ZZ Inspection of Upper Intestinal Tract, Via Natural or Artificial Opening (ICD-10-PCS; principal; 2024-05-24 09:00)
DX: I63.421 Cerebral infarction due to embolism of right anterior cerebral artery (principal); G93.41 Metabolic encephalopathy; Z51.5 Encounter for palliative care; R29.721 NIHSS score 21; G81.94 Hemiplegia, unspecified affecting left nondominant side; G40.909 Epilepsy, unspecified, not intractable, without status epilepticus; F01.50 Vascular dementia, unspecified severity, without behavioral disturbance, psychotic disturbance, mood disturbance, and anxiety; E03.9 Hypothyroidism, unspecified; I10 Essential (primary) hypertension; E87.0 Hyperosmolality and hypernatremia; Z66 Do not resuscitate; R13.11 Dysphagia, oral phase; R47.1 Dysarthria and anarthria; D72.829 Elevated white blood cell count, unspecified; R62.50 Unspecified lack of expected normal physiological development in childhood; E78.5 Hyperlipidemia, unspecified; Z53.8 Procedure and treatment not carried out for other reasons; Z79.899 Other long term (current) drug therapy; Z86.73 Personal history of transient ischemic attack (TIA), and cerebral infarction without residual deficits; Z86.19 Personal history of other infectious and parasitic diseases; Z88.0 Allergy status to penicillin
CPT/HCPCS: 36415; 70450; 70496; 70498; 70551; 71046; 80048; 80053; 80061; 81001; 82140; 83605; 83735; 84145; 84484; 85025; 85610; 85730; 86140; 87040; 87086; 87636; 93005; 93306; 93970; 95816; 96361; 96372; 96374; 96375; 96376; 99285